=== PATIENT | female | born 1960 | race Two or more races ===

== ENCOUNTER 2017-02-05 08:12 | Inpatient (IN) | payer MEDICAID ==
[2017-02-05] VITALS (17 sets, daily range): BP systolic 65–141; BP diastolic 47–81
[~2017-02-05] VITALS: Ht 165.1 cm; Wt 55.9 kg
--- NOTE | 2017-02-05 08:13 | Emergency Room Report ---
History of Present Illness General Chief Complaint: Altered Level of Consciousness Source: EMS Present Illness HPI Patient is a 70-year-old female brought in by EMS after increased level of consciousness. Patient noted be in increased confusion. She had been making incomprehensible sounds. History is markedly limited by patient's mental status. The patient was reportedly found in her apartment. She has a known past medical history Allergies: Coded Allergies: UNABLE TO ASSESS (Unverified , 02/05/17) Patient History Reviewed Nursing Documentation: PMH: Agreed, PSxH: Agreed Nursing Documentation-PMH Past Medical History Deferred: Pt Cognitively Impaired Review of Systems All Other Systems: limited - by mental status Physical Exam Vital Signs Date Time Temp Pulse Resp B/P (MAP) Pulse Ox O2 Delivery O2 Flow Rate FiO2 02/05/17 08:04 68 20 104/73 99 Room Air General Appearance: severe distress, Stupor Eyes: bilateral eye other - small pupils ENT: uvula midline, other - gag present Neck: limited range of motion Respiratory: chest non-tender, lungs clear Cardiovascular #1: normal peripheral pulses, no edema Gastrointestinal: tenderness - right lower abdomen/grimacing, other - tenderness lower right abdomen Musculoskeletal: decreased range of motion Neurologic: motor weakness, other - poor alertness, moves all extremities, incomprehensible sounds Psychiatric: anxious Skin: normal color, no rash Procedures Critical Care Time Critical Care Time Patient had a critical medical condition which untreated could potentially result in life or limb threatening injury. Total critical care time excluding procedures approximately 45 minutes. Medical Decision Making Diagnostic Impression: Primary Impression: Altered mental status Additional Impressions: Mass of right ovary Hydronephrosis Acute kidney injury Dehydration Uremia ER Course Patient is a 70-year-old female who presented for altered mental status. Differential diagnosis included but was not limited to ischemic stroke, subarachnoid hemorrhage, hypoglycemia, spinal cord injury, neurodegenerative disorder, urinary tract infection, hypoxemia.Because of complexity of patient's case laboratory testing and imaging studies were ordered.Laboratory studies showed evidence of elevation of her BUN as well as creatinine. The patient was initially noted to be markedly hypotensive the patient started on IV fluids well as IV antibiotics. Dr. Shamar Vega was contacted for inpatient management due to to panel physician. A CT abdomen pelvis read by radiology showed moderate right hydronephrosis/either ureter is a complex cystic mass with multiple septations likely ovarian nature approximately 6 x [address] York was contacted for a urology consult. A right internal jugular central venous catheter was attempted under ultrasound guidance without success. The patient was noted to have improved blood pressure subsequently. The post procedure x-ray showed no evidence of pneumothorax. Labs Test 02/05/17 09:20 02/05/17 09:30 02/05/17 10:51 02/05/17 11:50 Arterial Blood pH 7.370 (7.350-7.450) Arterial Blood Partial Pressure CO2 26.6 mmHg (35.0-45.0) Arterial Blood Partial Pressure O2 167.5 mmHg (75.0-100.0) Arterial Blood HCO3 15.1 mmol/L (22.0-26.0) Arterial Blood Oxygen Saturation 98.4 % (92.0-98.0) Arterial Blood Base Excess -8.1 Rodolfo Test Positive White Blood Count 15.1 K/UL (4.8-10.8) Red Blood Count 5.39 M/UL (4.20-5.40) Hemoglobin 17.7 G/DL (12.0-16.0) Hematocrit 53.2 % (37.0-47.0) Mean Corpuscular Volume 99 FL (80-99) Mean Corpuscular Hemoglobin 32.8 PG (27.0-31.0) Mean Corpuscular Hemoglobin Concent 33.3 G/DL (32.0-36.0) Red Cell Distribution Width 11.5 % (11.6-14.8) Platelet Count 119 K/UL (150-450) Mean Platelet Volume 13.3 FL (6.5-10.1) Neutrophils (%) (Auto) % (45.0-75.0) Lymphocytes (%) (Auto) % (20.0-45.0) Monocytes (%) (Auto) % (1.0-10.0) Eosinophils (%) (Auto) % (0.0-3.0) Basophils (%) (Auto) % (0.0-2.0) Differential Total Cells Counted 100 Neutrophils % (Manual) 93 % (45-75) Lymphocytes % (Manual) 6 % (20-45) Monocytes % (Manual) 1 % (1-10) Eosinophils % (Manual) 0 % (0-3) Basophils % (Manual) 0 % (0-2) Band Neutrophils 0 % (0-8) Platelet Estimate Decreased Platelet Morphology Normal Red Blood Cell Morphology Normal Prothrombin Time 13.5 SEC (9.30-11.50) Prothromb Time International Ratio 1.3 (0.9-1.1) Activated Partial Thromboplast Time 34 SEC (23-33) Sodium Level 154 MMOL/L (136-145) Potassium Level 3.3 MMOL/L (3.5-5.1) Chloride Level 111 MMOL/L (98-107) Carbon Dioxide Level 21 MMOL/L (21-32) Anion Gap 22 mmol/L (5-15) Blood Urea Nitrogen 115 mg/dL (7-18) Creatinine 5.9 MG/DL (0.55-1.30) Estimat Glomerular Filtration Rate 7.0 mL/min (>60) Glucose Level 252 MG/DL (74-106) Calcium Level 7.9 MG/DL (8.5-10.1) Total Bilirubin 0.7 MG/DL (0.2-1.0) Aspartate Amino Transf (AST/SGOT) 141 U/L (15-37) Alanine Aminotransferase (ALT/SGPT) 46 U/L (12-78) Alkaline Phosphatase 66 U/L (46-116) Ammonia 6 umol/L (11-32) Total Creatine Kinase 1698 U/L (26-308) Creatine Kinase MB 98.9 NG/ML (0.0-3.6) Creatine Kinase MB Relative Index 1400.0 Troponin I 0.019 ng/mL (0.000-0.056) Pro-B-Type Natriuretic Peptide 434 pg/mL (0-125) Total Protein 6.4 G/DL (6.4-8.2) Albumin 2.5 G/DL (3.4-5.0) Globulin 3.9 g/dL Albumin/Globulin Ratio 0.6 (1.0-2.7) Thyroid Stimulating Hormone (TSH) 5.252 uiU/mL (0.358-3.740) Serum Alcohol < 3 mg/dL Urine Color Brown Urine Appearance Clear Urine pH 6 (4.5-8.0) Urine Specific [place] 1.020 (1.005-1.035) Urine Protein 2+ (NEGATIVE) Urine Glucose (UA) Negative (NEGATIVE) Urine Ketones Negative (NEGATIVE) Urine Occult Blood 1+ (NEGATIVE) Urine Nitrite Negative (NEGATIVE) Urine Bilirubin 1+ (NEGATIVE) Urine Ictotest Negative Urine Urobilinogen 1 MG/DL (0.0-1.0) Urine Leukocyte Esterase 1+ (NEGATIVE) Urine RBC 2-4 /HPF (0 - 2) Urine WBC 2-4 /HPF (0 - 2) Urine Squamous Epithelial Cells Few /LPF (NONE/OCC) Urine Bacteria Few /HPF (NONE) Urine Mucus Moderate /LPF (NONE/OCC) Urine Opiates Screen Negative (NEGATIVE) Urine Barbiturates Screen Negative (NEGATIVE) Phencyclidine (PCP) Screen Negative (NEGATIVE) Urine Amphetamines Screen Negative (NEGATIVE) Urine Benzodiazepines Screen Negative (NEGATIVE) Urine Cocaine Screen Negative (NEGATIVE) Urine Marijuana (THC) Screen Negative (NEGATIVE) Lactic Acid Level 4.40 mmol/L (0.66-2.22) EKG Diagnostic Results Rate: normal Rhythm: NSR ST Segments: other - nsr diffuse twave inversion Last Vital Signs Date Time Temp Pulse Resp B/P (MAP) Pulse Ox O2 Delivery O2 Flow Rate FiO2 02/05/17 08:04 68 20 104/73 99 Room Air Status: unchanged Disposition: ADMITTED INPATIENT Condition: Serious Karlos Alston Feb 05, 2017 08:13
[2017-02-05] MEDS ORDERED: Cefepime HCl 1 GM in NS 55 ML IV SCH (08:15)
[2017-02-05] MEDS ORDERED: Lidocaine 1% MPF 10mg/ml 5ml ONE (08:45)
[2017-02-05] MEDS ORDERED: Lidocaine 1% MPF 10mg/ml 5ml IM ONE (09:15)
--- NOTE | 2017-02-05 09:56 | Diagnostic Imaging Report ---
Indication: Altered mental status Technique: Contiguous 5 mm thick transaxial imaging of the head obtained in a Siemens Sensation [address] scanner. Soft tissue and bone windows generated. Automatic Exposure Control was utilized. Total Dose length Product (DLP): 1333.[address] Dose Index Volume (CTDIvol): 70.38 mGy Comparison: none Findings: There is mild prominence of the ventricles, basal cisterns, and cerebral sulci consistent with atrophy. Mild, nonspecific, white matter hypoattenuation is noted throughout the brain consistent with chronic small vessel disease. There is no midline shift, edema, acute hemorrhage, mass effect, or abnormal extra-axial fluid collections. Bones and extra osseous soft tissues are unremarkable. There is opacification of the left ethmoid sinus. There is irregularity of the medial wall of left orbit likely due to an old injury. Impression: No acute intracranial bleed, mass effect or edema. Mild atrophy of the brain. Nonspecific white matter hypoattenuation probably due to chronic small vessel disease. Old left medial orbital wall fracture. The CT scanner at [facility] is accredited by the [employer] and the scans are performed using dose optimization techniques as appropriate to a performed exam including Automatic Exposure control.
[2017-02-05 09:57] LABS: HEMATOCRIT 53.2 % (37.0-47.0); HEMOGLOBIN 17.7 G/DL (12.0-16.0); MEAN CORPUSCULAR VOLUME 99 FL (80-99); PLATELET COUNT 119 K/UL (150-450); RED BLOOD COUNT 5.39 M/UL (4.20-5.40); RED CELL DISTRIBUTION WIDTH 11.5 % (11.6-14.8); WHITE BLOOD COUNT 15.1 K/UL (4.8-10.8)
[2017-02-05] MEDS ORDERED: Cefepime 1gm vial ONE (10:04)
[2017-02-05 10:08] LABS: INR 1.3 (0.9-1.1)
[2017-02-05 10:13] LABS: ANION GAP 22 mmol/L (5-15); BLOOD UREA NITROGEN 115 mg/dL (7-18); CALCIUM 7.9 MG/DL (8.5-10.1); CARBON DIOXIDE 21 MMOL/L (21-32); CHLORIDE 111 MMOL/L (98-107); CREATININE 5.9 MG/DL (0.55-1.30); POTASSIUM 3.3 MMOL/L (3.5-5.1); SODIUM 154 MMOL/L (136-145)
[2017-02-05 10:25] LABS: ALANINE AMINOTRANSFERASE 46 U/L (12-78); ALBUMIN 2.5 G/DL (3.4-5.0); ALBUMIN/GLOBULIN RATIO 0.6 (1.0-2.7); ALKALINE PHOSPHATASE 66 U/L (46-116); ASPARTATE AMINO TRANSFERASE 141 U/L (15-37); BILIRUBIN,TOTAL 0.7 MG/DL (0.2-1.0); CKMB 98.9 NG/ML (0.0-3.6)
[2017-02-05 10:26] LABS: CREATINE KINASE 1698 U/L (26-308)
[2017-02-05 10:27] LABS: CREATINE KINASE < 7 U/L (26-140)
[2017-02-05] MEDS ORDERED: Cefepime HCl 1 GM in D5W 55 ML IVPB ONE (10:45)
--- NOTE | 2017-02-05 10:50 | Diagnostic Imaging Report ---
Indication: Dyspnea Comparison: 02/05/2017 at 08:47 A single view chest radiograph was obtained. Findings: Cardiomediastinal appearance is within normal limits for age. Pulmonary vascularity is appropriate. The diaphragmatic contour is smooth and costophrenic angles are sharp. No pleural effusions are identified. The bones are unremarkable. Impression: No acute findings
--- NOTE | 2017-02-05 10:52 | Diagnostic Imaging Report ---
Indication: Dyspnea Comparison: None A single view chest radiograph was obtained. Findings: Cardiomediastinal appearance is within normal limits for age. Pulmonary vascularity is appropriate. The diaphragmatic contour is smooth and costophrenic angles are sharp. No pleural effusions are identified. The bones are unremarkable. Impression: No acute findings
[2017-02-05 11:06] LABS: APPEARANCE,URINE CLEAR; BILIRUBIN, URINE 1+ (NEGATIVE); COLOR,URINE BROWN; GLUCOSE, URINE (UA) NEGATIVE (NEGATIVE); KETONES,URINE NEGATIVE (NEGATIVE); LEUKOCYTE ESTERASE ,URINE 1+ (NEGATIVE); NITRITE,URINE NEGATIVE (NEGATIVE); PH,URINE 6 (4.5-8.0); PROTEIN,URINE 2+ (NEGATIVE); UROBILINOGEN,URINE 1 MG/DL (0.0-1.0)
--- NOTE | 2017-02-05 12:13 | Diagnostic Imaging Report ---
Indication: Abdominal pain Technique: Continuous helical transaxial imaging of the abdomen and pelvis was obtained from the lung bases to the pubic symphysis. No intravenous contrast was administered. Coronal 2-D reformats were also obtained. Automatic Exposure Control was utilized. Total Dose length Product (DLP): 662.[address] Dose Index Volume (CTDIvol): 13.21 mGy Comparison: none Findings: There is slight thickening of the wall the distal esophagus. Consider follow-up endoscopy. Minimal left basilar atelectasis demonstrated. Tiny gallstone demonstrated. There is mild to moderate right hydronephrosis/hydroureter. There is no obstructing stone. The hydronephrosis appears to be secondary to a multicystic mass in the right adnexa. The ureter as it traverses between the right psoas muscle and this mass transitions from [id number] dilatation to normal caliber. The complex cystic mass has multiple septations and is likely ovarian in nature measuring approximately 6.8 x 5.1 x 9.3 cm. There are multiple fibroids within the uterus some calcified. One of the fibroids appears subserosal and projects toward the left adnexa measuring 3.4 cm. There is air within the urinary bladder. Mena catheter noted in good position. Normal appendix is demonstrated. There is no evidence of bowel obstruction. There is no free air, abscess or ascites identified. Mild calcification of the aorta noted. Moderate callus patient noted adjacent to the greater trochanter bilaterally with worse on the right likely calcific tendinopathy/greater trochanter bursitis. IMPRESSION: Moderate right hydronephrosis secondary to extrinsic compression from a complex cystic right ovarian mass measuring 6.8 x 5.1 x 9.3 cm. 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 [employer] follow-up recommended. Cholelithiasis. Mild thickening of the visualized distal esophageal wall. Consider follow-up EGD. Small hiatal hernia also noted. Mild atherosclerotic disease. Mena catheter Uterine fibroids Bilateral greater trochanteric bursitis/tendinopathy, right worse than left. The CT scanner at [facility] is accredited by the [employer] and the scans are performed using dose optimization techniques as appropriate to a performed exam including Automatic Exposure control.
[2017-02-05] MEDS ORDERED: Vancomycin 1gm in D5W 275ml IVPB ONE (15:00)
[2017-02-05] MEDS: NovoLOG Insulin Flexpen SUBQ SCH ×2 (17:06→21:00)
--- NOTE | 2017-02-05 20:08 | Wound Care Consultation ---
Wound Assessment Wound Assessment #1: Wound Number: 1 Wound Present on Admission: Yes New Wound: No Status Change of Wound: No Wound Location Body Site Modif: left, lower Wound Location Body Site: back Wound Type: pressure ulcer Anali Test: Does not Anali Pressure Ulcer Stage: Deep Tissue Injury Wound Thickness: Full Thickness Wound Length: 10.0 Wound Width: 8.5 Wound Depth: utd Percent of Wound Purple/Maroon: 100 Wound Drainage Amount: None Wound Drainage Odor: None/Absent Tissue Surrounding Wound: Erythemic Wound General Appearance: Reddened - purple/maroon Wound Assessment #2: Wound Number: 2 Wound Present on Admission: Yes New Wound: No Status Change of Wound: No Wound Location Body Site Modif: left Wound Location Body Site: heel Wound Type: pressure ulcer Anali Test: Does not Anali Pressure Ulcer Stage: I Wound Length: 2.5 Wound Width: 2.5 Percent of Wound [place]/Red: 100 Wound Drainage Amount: None Wound Drainage Odor: None/Absent Tissue Surrounding Wound: Intact Wound General Appearance: Reddened Wound Assessment #3: Wound Number: 3 Wound Present on Admission: Yes New Wound: No Status Change of Wound: No Wound Location Body Site Modif: right Wound Location Body Site: heel Wound Type: pressure ulcer Anali Test: Does not Anali Pressure Ulcer Stage: I Wound Length: 2.5 Wound Width: 2.5 Percent of Wound [place]/Red: 100 Wound Drainage Amount: None Wound Drainage Odor: None/Absent Tissue Surrounding Wound: Intact Wound General Appearance: Reddened Wound Assessment #4: Wound Number: 4 Wound Present on Admission: Yes New Wound: No Status Change of Wound: No Wound Location Body Site Modif: left, right, upper Wound Location Body Site: back Wound Type: pressure ulcer Anali Test: Does not Anali Pressure Ulcer Stage: Deep Tissue Injury - scattered Wound Thickness: Full Thickness Percent of Wound [place]/Red: 100 - deep red Wound Drainage Amount: None Wound Drainage Odor: None/Absent Tissue Surrounding Wound: Intact Wound General Appearance: Reddened - deep red Wound Assessment #5: Wound Number: 5 Wound Present on Admission: Yes New Wound: No Status Change of Wound: No Wound Location Body Site Modif: right Wound Location Body Site: trochanter Wound Type: pressure ulcer Anali Test: Does not Anali Pressure Ulcer Stage: Deep Tissue Injury Wound Thickness: Full Thickness Wound Length: 4.5 Wound Width: 3.0 Wound Depth: utd Percent of Wound [place]/Red: 100 - deep red Wound Drainage Amount: None Wound Drainage Odor: None/Absent Tissue Surrounding Wound: Erythemic Wound General Appearance: Reddened - deep red Wound Assessment #6: Wound Number: 6 Wound Present on Admission: Yes New Wound: No Status Change of Wound: No Wound Location Body Site: perineal area Wound Type: chemical burn Anali Test: Does not Anali Percent of Wound [place]/Red: 100 Wound Drainage Amount: None Wound Drainage Odor: None/Absent Tissue Surrounding Wound: Erythemic Wound General Appearance: Reddened Wound Assessment #7: Wound Number: 7 Wound Present on Admission: Yes New Wound: No Status Change of Wound: No Wound Location Body Site Modif: left Wound Location Body Site: buttocks Wound Type: pressure ulcer Anali Test: Does not Anali Pressure Ulcer Stage: I Wound Length: 5.0 Wound Width: 2.0 Percent of Wound [place]/Red: 100 Wound Drainage Amount: None Wound Drainage Odor: None/Absent Tissue Surrounding Wound: Erythemic Wound General Appearance: Reddened Wound Comment #1 Left lower back DTI pressure ulcer #2 Left and right upper back scattered DTI pressure ulcer #3 Left heel stage I pressure ulcer #4 Left buttock stage I pressure ulcer #5 Right heel stage I pressure ulcer #6 Chemical burn on perineal area #7 Right trochanter DTI pressure ulcer Recommendation -Local wound care per protocol -Keep clean and dry -Turn and reposition -Optimize nutrition -Offload both heels -Heel protector on both heels -Low air loss mattress -Assess and f/u accordingly for any changes NABEEL MARTINEZ RN Feb 05, 2017 20:08
[2017-02-05] MEDS ORDERED: Piperacillin/Tazobactam 3.375 GM in NS 110 ML IVPB SCH (21:00)
--- NOTE | 2017-02-05 21:30 | History and Physical Report ---
DATE OF ADMISSION: 02/05/2017 HISTORY AND PHYSICAL AND ICU NOTE CHIEF COMPLAINT/REASON FOR HOSPITALIZATION: The patient is a 70-year-old lady, admitted with altered level of consciousness and hypotension. HISTORY OF PRESENT ILLNESS: She was brought in by EMS for altered level of consciousness, apparently found down in her apartment and unable to communicate. I am unable to get any past history at this time and she initially presented without a name being available and assigned a name, Bailee Cortes, but apparently this is her proper name. No other past history is available at this time. She was hypotensive and also hypothermic in the emergency room. She was given fluids, cultured, and started on treatment. She was seen in the emergency room and again later in the ICU. PHYSICAL EXAMINATION: VITAL SIGNS: Temperature 89, repeat 94 rectal; pulse 73; respirations 16; and blood pressure 121/77. HEAD, EYES, EARS, NOSE, AND THROAT: She keeps her eyes closed during the exam and when the eyes are open, the sclerae are nonicteric and the pupils are reactive. Oral mucosa is dry. NECK: No adenopathy, rigidity or thyroid enlargement. LUNGS: Clear. HEART: Regular rhythm. No murmur heard. BREASTS: Atrophic. No masses. ABDOMEN: Soft without organomegaly or masses. EXTREMITIES: No edema, cyanosis or clubbing. NEUROLOGIC: She is nonverbal. She moves all extremities to irritative stimuli. There is no facial asymmetry. Ocular motions appear to be intact in all directions when the eyes are open. PERTINENT LABORATORY AND DIAGNOSTIC DATA: A CT abdomen shows moderate right hydronephrosis secondary to extrinsic compression from a complex right ovarian mass. 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 Further labs as follows, white count 15.1 and hemoglobin 17.7. Sodium 154, potassium 3.3, chloride 111, CO2 21, BUN 115, creatinine 5.9, and glucose 252. AST 141. CK total is less than 7, but her CK-MB is 1400, very elevated. The total CK repeat is 1698. TSH 5.25. Lactic acid 6.2 and 4.4. The urinalysis as follows, 2-4 white cells and 2-4 red cells per high-powered field, 2+ protein. A chest x-ray shows no acute findings. IMPRESSION: 1. Hypothermia and possible sepsis and septic shock. 2. Acute kidney injury, likely secondary to obstruction and dehydration. 3. Hydronephrosis. 4. Cystic pelvic mass. 5. Incomplete database. 6. Hypothermia. 7. Debility. 8. Altered mental status, possibly from sepsis and possible others. PLAN: The patient is in the intensive care unit. She will be hydrated and started on treatment for sepsis. We may need to put a ureteral stents or percutaneous nephrostomy. Condition is critical and detailed ICU orders are given. Shamar Vega M.D. DR: KATHY JOB#: [id number] CC:
[2017-02-06] VITALS (12 sets, daily range): BP systolic 93–154; BP diastolic 45–77
--- NOTE | 2017-02-06 03:00 | Consultation ---
DATE OF CONSULTATION: 02/05/2017 UROLOGY CONSULTATION ATTENDING/CONSULTING PHYSICIAN: Shamar Vega M.D. CHIEF COMPLAINT/HISTORY OF PRESENT ILLNESS: I was asked by Dr. Vega to evaluate this unfortunate 70-year-old female regarding a history of right hydroureteronephrosis, secondary to extrinsic compression by an ovarian mass in the setting of renal failure and altered mental status. Briefly, the patient was brought in, found down by EMS. She had altered level of consciousness and was unable to communicate. Apparently, she was found to be hypotensive and hypothermic. She had a CT scan done revealing a right ovarian cystic mass consistent with possible neoplasm and extrinsic compression of the right ureter secondary to same. There is right-sided hydronephrosis, but the patient also appear to suffer from prerenal azotemia. She was given fluids, cultured, and placed in the ICU. Given the above, I was asked to evaluate the patient. The patient is sleepy and cannot provide any information. Most of the information is gathered from the chart. PAST MEDICAL HISTORY: Unknown. PAST SURGICAL HISTORY: Unknown. MEDICATIONS: Please see the chart for current medications and administration details. Briefly, the patient's medications do include Zosyn and vancomycin for antibiotic coverage. ALLERGIES: Unknown. SOCIAL HISTORY: Unobtainable due to mental status. FAMILY HISTORY: Unobtainable due to mental status. REVIEW OF SYSTEMS: A 12-system review of systems cannot be done, as the patient cannot cooperate with questioning. PHYSICAL EXAMINATION: GENERAL: The patient is an older female, sleeping, in no obvious distress. HEENT: NC/AT. Oropharynx clear. NECK: Supple. CHEST: Within normal limits. ABDOMEN: Soft, flat, nontender, and nondistended. EXTREMITIES: Warm and well perfused. No cyanosis, clubbing, or edema. BACK: No apparent CVA tenderness to percussion. NEUROLOGIC: Deferred, as the patient cannot cooperate with the exam. GENITOURINARY: Reveals normal female external genitalia. There is a Mena catheter in place with clear yellow urine output, which is somewhat scant. LABORATORY DATA: White blood cell count 15.1 and hemoglobin 17.7. Sodium 154, potassium 3.3, chloride 111, bicarbonate 21, BUN 115, creatinine 5.9, and glucose 252. AST 141. CK-MB 1400. CK total 1698. Lactic acid 6.2. PT 13.5, INR 1.3, and PTT 34. Urinalysis, specific gravity 1.020 and pH 6.0. Dip test notable for 2+ protein, 1+ occult blood, 1+ bilirubin, and 1+ leukocyte esterase. Microanalysis with 2 to 4 red blood cells per high-power field and 2 to 4 white blood cells per high-power field and few bacteria seen. Urine toxicology negative. DIAGNOSTIC IMAGING: Chest x-ray, no acute findings. CT scan of the abdomen and pelvis reveals moderate right hydronephrosis, secondary to extrinsic compression from a complex cystic right ovarian mass measuring 6.8 x 5.1 x 9.3 cm in size. 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 WELLNESS NURSE followup was recommended. There is cholelithiasis noted. There are uterine fibroids. Mena catheter is in place. Head CT, no acute intracranial bleed, mass affect, or edema. There is mild atrophy of the brain. ASSESSMENT AND PLAN: In summary, the patient is a 70-year-old female with a history of altered mental status and was found down. She was brought to the hospital. She was found to be hypotensive and hypothermic. She was admitted to the ICU and placed on fluids, antibiotics, and supportive care. Workup with a CT scan revealed a right ovarian mass with extrinsic compression of the right ureter leading to right hydroureteronephrosis. The patient has renal failure, which likely is at least partially prerenal azotemia due to dehydration. Physical exam is essentially unremarkable outside of obtundation. Laboratory data is notable for renal failure and an elevated white blood cell count. Diagnostic imaging reveals the findings as described above. This patient should be kept on supportive care with intravenous fluids for hydration and intravenous antibiotics. Cultures should be checked and antibiotics adjusted as necessary. If her renal failure fails to correct with rehydration, consideration could be made for placing a percutaneous nephrostomy tube in the right kidney to rule out a component of obstructive uropathy secondary to her mass. I would recommend a percutaneous nephrostomy over cystoscopy double-J stent for several reasons, including the risk of general anesthesia and the patient with an elevated CK-MB and critically ill status and also the difficulty in bypassing the ureteral obstruction from the mass from below. Thank you for allowing me to participate in the care of this unfortunate lady. Please do not hesitate to contact me for any questions that you may further have regarding her care. I will see her with you as needed. Edd Szymanski M.D. DR: SEAN JOB#: [id number] CC:
[2017-02-06 04:47] LABS: HEMATOCRIT 45.8 % (37.0-47.0); HEMOGLOBIN 15.9 G/DL (12.0-16.0); MEAN CORPUSCULAR VOLUME 99 FL (80-99); PLATELET COUNT 78 K/UL (150-450); RED BLOOD COUNT 4.63 M/UL (4.20-5.40); RED CELL DISTRIBUTION WIDTH 11.6 % (11.6-14.8)
[2017-02-06 04:50] LABS: INR 1.3 (0.9-1.1)
[2017-02-06 05:04] LABS: ALANINE AMINOTRANSFERASE 46 U/L (12-78); ALBUMIN 2.1 G/DL (3.4-5.0); ALBUMIN/GLOBULIN RATIO 0.6 (1.0-2.7); ALKALINE PHOSPHATASE 58 U/L (46-116); ANION GAP 19 mmol/L (5-15); ASPARTATE AMINO TRANSFERASE 131 U/L (15-37); BILIRUBIN,TOTAL 0.7 MG/DL (0.2-1.0); BLOOD UREA NITROGEN 111 mg/dL (7-18); CALCIUM 6.8 MG/DL (8.5-10.1); CARBON DIOXIDE 21 MMOL/L (21-32); CHLORIDE 116 MMOL/L (98-107); CREATININE 5.7 MG/DL (0.55-1.30); POTASSIUM 2.8 MMOL/L (3.5-5.1); SODIUM 155 MMOL/L (136-145)
[2017-02-06 05:15] LABS: AMMONIA 11 umol/L (11-32)
[2017-02-06 05:24] LABS: CREATINE KINASE 1404 U/L (26-308); PHOSPHORUS 5.3 MG/DL (2.5-4.9)
[2017-02-06] MEDS: NovoLOG Insulin Flexpen SUBQ SCH ×4 (06:36→21:00)
[2017-02-06] MEDS ORDERED: Heparin 5000 units/ml inj SUBQ SCH (09:00)
[2017-02-06] MEDS: Piperacillin/Tazobactam 3.375 GM in NS 110 ML IVPB SCH ×2 (09:25→21:01)
[2017-02-06] MEDS ORDERED: Potassium Chloride 40 MEQ in Sodium Chloride 500ML 550 ML IVPB ONE (10:00)
[2017-02-06] MEDS: Potassium Chloride 40 MEQ in 1/2 NS 1000ml 1,000 ML IV SCH ×2 (10:47→18:20)
[2017-02-06] MEDS: Heparin 5000 units/ml inj SUBQ SCH (12:09)
--- NOTE | 2017-02-06 12:24 | Nephrology Progress Note ---
Assessment/Plan Problem List: (1) Severe sepsis (2) Dehydration (3) Hydronephrosis (4) Uremia (5) Acute kidney injury (6) Mass of right ovary (7) Altered mental status Plan G+ cocci in blood vanco zosyn iv fluids icu order icu time 35 min Subjective ROS Limited/Unobtainable: Yes HEENT: Reports: no symptoms Objective Objective Last 24 Hour Vital Signs Date Time Temp Pulse Resp B/P (MAP) Pulse Ox O2 Delivery O2 Flow Rate FiO2 02/06/17 08:00 95.9 71 18 111/69 99 Room Air 02/06/17 08:00 69 02/06/17 07:00 82 16 102/52 99 Room Air 02/06/17 06:00 80 20 104/77 99 Room Air 02/06/17 05:00 80 20 110/45 99 Room Air 02/06/17 04:00 85 02/06/17 04:00 98.0 86 20 93/61 99 Room Air 02/06/17 03:00 86 16 96/59 99 Room Air 02/06/17 02:00 89 16 97/54 99 Room Air 02/06/17 01:00 94 16 99/59 99 Room Air 02/06/17 00:00 98.4 92 20 100/50 99 Room Air 02/05/17 23:45 100 02/05/17 23:00 98.0 100 20 118/71 99 Room Air 02/05/17 22:00 100 20 118/71 99 Room Air 02/05/17 21:00 100 20 118/71 99 Room Air 02/05/17 20:00 111 02/05/17 20:00 99.5 100 20 118/71 99 Room Air 02/05/17 19:00 100 20 118/71 99 Room Air 02/05/17 18:00 76 16 108/71 100 Room Air 02/05/17 17:00 76 17 119/71 100 Room Air 02/05/17 16:00 94.6 83 17 141/80 100 Room Air 02/05/17 15:00 76 16 117/77 100 Room Air 02/05/17 14:00 71 16 117/78 100 Room Air 02/05/17 13:00 94.0 72 16 121/77 100 Room Air 02/05/17 13:00 73 12/29/17 12:45 73 16 111/81 100 Room Air 02/05/17 12:35 98.5 76 22 108/72 100 Room Air 02/05/17 12:35 89.0 76 22 108/72 100 Room Air Intake and Output 02/05/17 02/06/17 19:00 07:00 Intake Total 1930 ml 1910.0 ml Output Total 1350 ml 850 ml Balance 580 ml 1060.0 ml Intake Oral 0 ml IV Total 1930 ml 1910.0 ml Output Urine Total 1350 ml 850 ml Laboratory Tests 02/05/17 18:10: Lactic Acid Level 2.70H 02/06/17 03:45: White Blood Count 15.0H, Red Blood Count 4.63, Hemoglobin 15.9, Hematocrit 45.8 , Mean Corpuscular Volume 99, Mean Corpuscular Hemoglobin 34.4H, Mean Corpuscular Hemoglobin Concent 34.8, Red Cell Distribution Width 11.6, Platelet Count 78L, Mean Platelet Volume 11.4H, Neutrophils (%) (Auto) , Lymphocytes (%) (Auto) , Monocytes (%) (Auto) , Eosinophils (%) (Auto) , Basophils (%) (Auto) , Differential Total Cells Counted 100, Neutrophils % (Manual) 80H, Lymphocytes % (Manual) 13L, Monocytes % (Manual) 7, Eosinophils % (Manual) 0, Basophils % ( Manual) 0, Band Neutrophils 0, Platelet Estimate DecreasedL, Platelet Morphology Normal, Prothrombin Time 13.6H, Prothromb Time International Ratio 1.3H, Sodium Level 155H, Potassium Level 2.8L, Chloride Level 116H, Carbon Dioxide Level 21, Anion Gap 19H, Blood Urea Nitrogen 111H, Creatinine 5.7H, Estimat Glomerular Filtration Rate 7.3, Glucose Level 130#H, Calcium Level 6.8L , Phosphorus Level 5.3H, Magnesium Level 2.3, Total Bilirubin 0.7, Aspartate Amino Transf (AST/SGOT) 131H, Alanine Aminotransferase (ALT/SGPT) 46, Alkaline Phosphatase 58, Ammonia 11, Total Creatine Kinase 1404H, Troponin I 0.253H, Total Protein 5.4L, Albumin 2.1L, Globulin 3.3, Albumin/Globulin Ratio 0.6L, Random Vancomycin Level 21.0 Height (Feet): 5 Height (Inches): 2.00 Weight (Pounds): 116 General Appearance: confused EENT: normal ENT inspection Neck: normal alignment Cardiovascular: regular rhythm Respiratory/Chest: lungs clear Abdomen: non tender, soft, no organomegaly Neurologic: disoriented BENOIT GIORDANO Feb 06, 2017 12:24
[2017-02-07] VITALS: BP 100/52
[2017-02-07] MEDS: Potassium Chloride 40 MEQ in 1/2 NS 1000ml 1,000 ML IV SCH ×2 (00:04→05:51)
[2017-02-07 04:00] VITALS: BP 119/74
[2017-02-07 04:50] LABS: HEMATOCRIT 42.2 % (37.0-47.0); HEMOGLOBIN 14.8 G/DL (12.0-16.0); MEAN CORPUSCULAR VOLUME 98 FL (80-99); PLATELET COUNT 53 K/UL (150-450); RED BLOOD COUNT 4.29 M/UL (4.20-5.40); WHITE BLOOD COUNT 14.7 K/UL (4.8-10.8)
[2017-02-07] MEDS: NovoLOG Insulin Flexpen SUBQ SCH ×4 (05:53→20:32)
[2017-02-07 06:59] LABS: ALANINE AMINOTRANSFERASE 42 U/L (12-78); ALBUMIN 1.8 G/DL (3.4-5.0); ALBUMIN/GLOBULIN RATIO 0.5 (1.0-2.7); ALKALINE PHOSPHATASE 60 U/L (46-116); ANION GAP 16 mmol/L (5-15); ASPARTATE AMINO TRANSFERASE 94 U/L (15-37); BILIRUBIN,TOTAL 0.5 MG/DL (0.2-1.0); BLOOD UREA NITROGEN 95 mg/dL (7-18); CALCIUM 6.7 MG/DL (8.5-10.1); CARBON DIOXIDE 19 MMOL/L (21-32); CHLORIDE 119 MMOL/L (98-107); CREATINE KINASE 737 U/L (26-308); CREATININE 4.2 MG/DL (0.55-1.30); PHOSPHORUS 4.1 MG/DL (2.5-4.9); POTASSIUM 3.9 MMOL/L (3.5-5.1); SODIUM 154 MMOL/L (136-145)
[2017-02-07 08:00] VITALS: BP 96/63
[2017-02-07] MEDS: Piperacillin/Tazobactam 3.375 GM in NS 110 ML IVPB SCH (08:22)
[2017-02-07] MEDS ORDERED: Vancomycin 750mg/D5W 275ml IVPB ONE ×2 (10:00)
--- NOTE | 2017-02-07 10:36 | General Progress Note ---
Assessment/Plan Problem List: (1) Severe sepsis ICD Codes: A41.9 - Sepsis, unspecified organism; R65.20 - Severe sepsis without septic shock SNOMED: 92701441 (2) Dehydration ICD Codes: E86.0 - Dehydration SNOMED: 31576512 (3) Hydronephrosis ICD Codes: N13.30 - Unspecified hydronephrosis SNOMED: 54307532 (4) Uremia ICD Codes: N19 - Unspecified kidney failure SNOMED: 92121637 (5) Acute kidney injury ICD Codes: N17.9 - Acute kidney failure, unspecified SNOMED: 33150963 (6) Mass of right ovary ICD Codes: N83.9 - Noninflammatory disorder of ovary, fallopian tube and broad ligament, unspecified SNOMED: 153570697 (7) Altered mental status ICD Codes: R41.82 - Altered mental status, unspecified SNOMED: 274382092 (8) Hypernatremia ICD Codes: E87.0 - Hyperosmolality and hypernatremia SNOMED: 34676412 Assessment/Plan remains obtunde, ct brain, hydrate,rx sepsis, possible nephrostomy in 2 days Subjective ROS Limited/Unobtainable: Yes Allergies: Coded Allergies: UNABLE TO ASSESS (Unverified , 02/05/17) Objective Last 24 Hour Vital Signs Date Time Temp Pulse Resp B/P (MAP) Pulse Ox O2 Delivery O2 Flow Rate FiO2 02/07/17 08:00 97.9 88 18 96/63 94 Room Air 02/07/17 08:00 87 02/07/17 04:00 97.9 91 15 119/74 99 Room Air 02/07/17 04:00 89 02/07/17 00:00 77 02/07/17 00:00 97.5 77 15 100/52 95 Room Air 02/06/17 20:00 96.8 77 15 100/63 95 Room Air 02/06/17 20:00 70 02/06/17 16:05 96.4 74 20 122/62 95 Room Air 02/06/17 16:00 74 02/06/17 12:00 70 02/06/17 12:00 96.1 70 18 154/71 98 Room Air Intake and Output 02/06/17 02/07/17 19:00 07:00 Intake Total 1801.0 ml 1855.0 ml Output Total 620 ml Balance 1181.0 ml 1855.0 ml IV Total 1801.0 ml 1855.0 ml Output Urine Total 620 ml Laboratory Tests 02/06/17 15:15: Urine Osmolality 303L, Urine Random Sodium 25, Urine Creatinine 80.9 02/07/17 03:20: White Blood Count 14.7H, Red Blood Count 4.29, Hemoglobin 14.8, Hematocrit 42.2 , Mean Corpuscular Volume 98, Mean Corpuscular Hemoglobin 34.4H, Mean Corpuscular Hemoglobin Concent 35.0, Red Cell Distribution Width 12.0, Platelet Count 53L, Mean Platelet Volume 13.4H, Neutrophils (%) (Auto) , Lymphocytes (%) (Auto) , Monocytes (%) (Auto) , Eosinophils (%) (Auto) , Basophils (%) (Auto) , Differential Total Cells Counted 100, Neutrophils % (Manual) 85H, Lymphocytes % (Manual) 10L, Monocytes % (Manual) 4, Eosinophils % (Manual) 1, Basophils % ( Manual) 0, Band Neutrophils 0, Platelet Estimate DecreasedL, Platelet Morphology Normal, Red Blood Cell Morphology Normal, Sodium Level 154H, Potassium Level 3.9, Chloride Level 119H, Carbon Dioxide Level 19L, Anion Gap 16H, Blood Urea Nitrogen 95H, Creatinine 4.2H, Estimat Glomerular Filtration Rate 10.5, Glucose Level 123H, Calcium Level 6.7L, Phosphorus Level 4.1, Magnesium Level 2.0, Total Bilirubin 0.5, Aspartate Amino Transf (AST/SGOT) 94H , Alanine Aminotransferase (ALT/SGPT) 42, Alkaline Phosphatase 60, Total Creatine Kinase 737H, Total Protein 5.3L, Albumin 1.8L, Globulin 3.5, Albumin/ Globulin Ratio 0.5L Height (Feet): 5 Height (Inches): 2.00 Weight (Pounds): 115 General Appearance: lethargic, confused EENT: other - face flushed Neck: normal alignment Cardiovascular: normal rate, regular rhythm Respiratory/Chest: lungs clear Abdomen: non tender, soft Extremities: non-tender Edema: no edema noted Arm (L), no edema noted Arm (R), no edema noted Leg (L), no edema noted Leg (R), no edema noted Pedal (L), no edema noted Pedal (R), no edema noted Generalized Neurologic: disoriented BENOIT GIORDANO Feb 07, 2017 10:36
[2017-02-07 12:00] VITALS: BP 111/59
--- NOTE | 2017-02-07 13:23 | Diagnostic Imaging Report ---
Indication: NG tube placement Technique: XRAY Abdomen 1v Comparison: 02/07/2017, 10:59 Findings: Interval placement of nasogastric tube, tip and side port in the proximal stomach. Bowel gas pattern is nonspecific. Imaged lung bases are clear. No acute osseous abnormality seen. Impression: NG tube tip in the proximal stomach.
[2017-02-07] MEDS: Heparin 5000 units/ml inj SUBQ SCH (13:27)
[2017-02-07] MEDS: D5W IV SCH (13:51)
[2017-02-07] MEDS: SODIUM BICARBONATE IV SCH (13:51)
[2017-02-07] MEDS: POTASSIUM CHLORIDE IV SCH (13:51)
--- NOTE | 2017-02-07 14:01 | Diagnostic Imaging Report ---
Indication: Tube placement Technique: XRAY Abdomen 1v Comparison: None Findings: Nonspecific bowel gas pattern with gaseous distention of a loop of sigmoid in the right lower quadrant and some small bowel loops in the left upper quadrant. The bowel gas pattern is not overtly obstructive at this time. Limit sensitivity for free intraperitoneal air given lack of erect view. No enteric tube is seen. Mena catheter noted. Calcifications noted within pelvis may be related to uterine calcifications seen on concurrent CT of the abdomen. No acute osseous abnormality is noted. No definite focal consolidation seen in the lung bases. Impression: No enteric tube seen. Correlate clinically to ensure it is not coiled within the mouth if indeed attempt at placing enteric tube was made. Bowel gas pattern is not overtly obstructive at this time. Additional findings as above.
[2017-02-07 16:00] VITALS: BP 101/62
[2017-02-07 20:00] VITALS: BP 107/66
[2017-02-07] MEDS: ceFAZolin 1gm/50ml Premix 50 ML IV SCH (20:31)
[2017-02-08] VITALS: BP 98/60
[2017-02-08] MEDS: D5W IV SCH (00:17)
[2017-02-08] MEDS: SODIUM BICARBONATE IV SCH (00:17)
[2017-02-08] MEDS: POTASSIUM CHLORIDE IV SCH (00:17)
[2017-02-08 04:00] VITALS: BP 121/85
[2017-02-08] MEDS: NovoLOG Insulin Flexpen SUBQ SCH ×4 (05:46→21:02)
[2017-02-08 06:08] LABS: ANION GAP 9 mmol/L (5-15); BLOOD UREA NITROGEN 58 mg/dL (7-18); CALCIUM 7.1 MG/DL (8.5-10.1); CARBON DIOXIDE 23 MMOL/L (21-32); CHLORIDE 124 MMOL/L (98-107); CREATININE 2.2 MG/DL (0.55-1.30); POTASSIUM 4.1 MMOL/L (3.5-5.1); SODIUM 156 MMOL/L (136-145)
[2017-02-08 06:16] LABS: HEMATOCRIT 42.7 % (37.0-47.0); MEAN CORPUSCULAR VOLUME 101 FL (80-99); PLATELET COUNT 36 K/UL (150-450); RED BLOOD COUNT 4.24 M/UL (4.20-5.40); RED CELL DISTRIBUTION WIDTH 12.3 % (11.6-14.8); WHITE BLOOD COUNT 12.4 K/UL (4.8-10.8)
[2017-02-08 08:00] VITALS: BP 106/65
[2017-02-08] MEDS: ceFAZolin 1gm/50ml Premix 50 ML IV SCH (08:24)
[2017-02-08] MEDS: Heparin 5000 units/ml inj SUBQ SCH (09:00)
--- NOTE | 2017-02-08 10:54 | General Progress Note ---
Assessment/Plan Problem List: (1) Severe sepsis ICD Codes: A41.9 - Sepsis, unspecified organism; R65.20 - Severe sepsis without septic shock SNOMED: 83658729 (2) Dehydration ICD Codes: E86.0 - Dehydration SNOMED: 24289206 (3) Hydronephrosis ICD Codes: N13.30 - Unspecified hydronephrosis SNOMED: 57926527 (4) Uremia ICD Codes: N19 - Unspecified kidney failure SNOMED: 76784376 (5) Acute kidney injury ICD Codes: N17.9 - Acute kidney failure, unspecified SNOMED: 26193190 (6) Mass of right ovary ICD Codes: N83.9 - Noninflammatory disorder of ovary, fallopian tube and broad ligament, unspecified SNOMED: 676715119 (7) Altered mental status ICD Codes: R41.82 - Altered mental status, unspecified SNOMED: 998375422 (8) Hypernatremia ICD Codes: E87.0 - Hyperosmolality and hypernatremia SNOMED: 18750613 Assessment/Plan remains obtunde, ct brain no acute cva, hydrate,rx sepsis, possible nephrostomy in 2 days, levemir, ng feed, ampicillen for enterococcal sepsis Subjective ROS Limited/Unobtainable: Yes Allergies: Coded Allergies: UNABLE TO ASSESS (Unverified , 02/05/17) Objective Last 24 Hour Vital Signs Date Time Temp Pulse Resp B/P (MAP) Pulse Ox O2 Delivery O2 Flow Rate FiO2 02/08/17 04:00 62 02/08/17 04:00 95.1 69 18 121/85 91 Room Air 02/08/17 00:00 95.7 72 20 98/60 97 Room Air 02/08/17 00:00 70 02/07/17 20:00 75 02/07/17 20:00 97.7 81 21 107/66 93 Room Air 02/07/17 16:00 98.0 87 18 101/62 95 Room Air 02/07/17 16:00 84 02/07/17 12:00 98.6 90 18 111/59 95 Room Air 02/07/17 12:00 84 Intake and Output 02/07/17 02/08/17 19:00 07:00 Intake Total 1710 ml 1490 ml Output Total 1200 ml 1800 ml Balance 510 ml -310 ml IV Total 1650 ml 1160 ml Tube Feeding 60 ml 330 ml Output Urine Total 1200 ml 1800 ml Laboratory Tests 02/08/17 03:50: White Blood Count 12.4H, Red Blood Count 4.24, Hemoglobin 14.0, Hematocrit 42.7 , Mean Corpuscular Volume 101H, Mean Corpuscular Hemoglobin 33.0H, Mean Corpuscular Hemoglobin Concent 32.8, Red Cell Distribution Width 12.3, Platelet Count 36L, Mean Platelet Volume 10.0, Neutrophils (%) (Auto) , Lymphocytes (%) ( Auto) , Monocytes (%) (Auto) , Eosinophils (%) (Auto) , Basophils (%) (Auto) , Differential Total Cells Counted 100, Neutrophils % (Manual) 86H, Lymphocytes % (Manual) 10L, Monocytes % (Manual) 3, Eosinophils % (Manual) 1, Basophils % ( Manual) 0, Band Neutrophils 0, Platelet Estimate DecreasedL, Platelet Morphology Normal, Anisocytosis 1+, Macrocytosis 1+, Sodium Level 156H, Potassium Level 4.1, Chloride Level 124H, Carbon Dioxide Level 23, Anion Gap 9, Blood Urea Nitrogen 58H, Creatinine 2.2H, Estimat Glomerular Filtration Rate , Glucose Level 293#H, Calcium Level 7.1L Height (Feet): 5 Height (Inches): 2.00 Weight (Pounds): 120 General Appearance: confused EENT: other - eyes closed Neck: normal alignment Cardiovascular: regular rhythm Respiratory/Chest: lungs clear Abdomen: other - suprapubic full Edema: no edema noted Arm (L), no edema noted Arm (R), no edema noted Leg (L), no edema noted Leg (R), no edema noted Pedal (L), no edema noted Pedal (R), no edema noted Generalized BENOIT GIORDANO Feb 08, 2017 10:54
[2017-02-08 12:00] VITALS: BP 108/73
[2017-02-08] MEDS: 1/2NS w/KCl 20mEq 1000ml 1,000 ML IV SCH ×2 (12:56→22:18)
[2017-02-08] MEDS: Ampicillin 1 GM in NS 55 ML IVPB SCH ×2 (12:57→18:27)
[2017-02-08] MEDS ORDERED: Tubing IV Secondary IV ONE (14:40)
[2017-02-08] MEDS ORDERED: NS 275ml ONE (14:40)
[2017-02-08 16:00] VITALS: BP 119/78
[2017-02-08] MEDS ORDERED: 1/2 NS 1000ml IV ONE (17:42)
[2017-02-08 20:52] VITALS: BP 116/75
[2017-02-08] MEDS ORDERED: ceFAZolin 1gm in D5W 55ml IVPB SCH (21:00)
[2017-02-08] MEDS: Levemir Flexpen SUBQ SCH (21:01)
[2017-02-09 00:34] VITALS: BP 107/72
[2017-02-09] MEDS: Ampicillin 1 GM in NS 55 ML IVPB SCH ×5 (01:05→23:38)
[2017-02-09 04:00] VITALS: BP 103/68
[2017-02-09 04:58] LABS: HEMATOCRIT 42.4 % (37.0-47.0); HEMOGLOBIN 14.3 G/DL (12.0-16.0); MEAN CORPUSCULAR VOLUME 99 FL (80-99); PLATELET COUNT 40 K/UL (150-450); RED BLOOD COUNT 4.28 M/UL (4.20-5.40)
[2017-02-09 05:14] LABS: INR 1.2 (0.9-1.1)
[2017-02-09 05:40] LABS: ALANINE AMINOTRANSFERASE 31 U/L (12-78); ALBUMIN 1.7 G/DL (3.4-5.0); ALBUMIN/GLOBULIN RATIO 0.4 (1.0-2.7); ALKALINE PHOSPHATASE 81 U/L (46-116); ANION GAP 6 mmol/L (5-15); ASPARTATE AMINO TRANSFERASE 40 U/L (15-37); BILIRUBIN,TOTAL 0.5 MG/DL (0.2-1.0); BLOOD UREA NITROGEN 37 mg/dL (7-18); CALCIUM 8.2 MG/DL (8.5-10.1); CARBON DIOXIDE 30 MMOL/L (21-32); CHLORIDE 124 MMOL/L (98-107); CREATININE 1.2 MG/DL (0.55-1.30); POTASSIUM 3.3 MMOL/L (3.5-5.1); SODIUM 160 MMOL/L (136-145)
[2017-02-09] MEDS: NovoLOG Insulin Flexpen SUBQ SCH ×4 (06:40→20:51)
[2017-02-09 08:00] VITALS: BP 136/75
[2017-02-09] MEDS: 1/2NS w/KCl 20mEq 1000ml 1,000 ML IV SCH ×3 (08:08→17:33)
--- NOTE | 2017-02-09 09:33 | General Progress Note ---
Assessment/Plan Problem List: (1) Severe sepsis ICD Codes: A41.9 - Sepsis, unspecified organism; R65.20 - Severe sepsis without septic shock SNOMED: 21009574 (2) Dehydration ICD Codes: E86.0 - Dehydration SNOMED: 73540263 (3) Hydronephrosis ICD Codes: N13.30 - Unspecified hydronephrosis SNOMED: 36449912 (4) Uremia ICD Codes: N19 - Unspecified kidney failure SNOMED: 84578247 (5) Acute kidney injury ICD Codes: N17.9 - Acute kidney failure, unspecified SNOMED: 51563088 (6) Mass of right ovary ICD Codes: N83.9 - Noninflammatory disorder of ovary, fallopian tube and broad ligament, unspecified SNOMED: 610088031 (7) Altered mental status ICD Codes: R41.82 - Altered mental status, unspecified SNOMED: 001187121 (8) Hypernatremia ICD Codes: E87.0 - Hyperosmolality and hypernatremia SNOMED: 00245601 Assessment/Plan remains confused, ct brain no acute cva, hydrate,rx sepsis, possible nephrostomy in 2 days, levemir, ng feed, ampicillen for enterococcal sepsis Subjective Allergies: Coded Allergies: UNABLE TO ASSESS (Unverified , 02/05/17) Subjective confused pulled out ng Objective Last 24 Hour Vital Signs Date Time Temp Pulse Resp B/P (MAP) Pulse Ox O2 Delivery O2 Flow Rate FiO2 02/09/17 08:00 60 02/09/17 08:00 90.7 61 14 136/75 98 02/09/17 04:00 65 02/09/17 04:00 98.9 63 13 103/68 97 02/09/17 00:34 98.8 61 14 107/72 97 02/09/17 00:00 67 02/08/17 20:52 97.1 61 15 116/75 99 02/08/17 16:43 62 02/08/17 16:00 97.0 61 18 119/78 96 02/08/17 12:00 56 02/08/17 12:00 97.1 61 18 108/73 95 Intake and Output 02/08/17 02/09/17 19:00 07:00 Intake Total 1450 ml 100 ml Output Total 1800 ml 1700 ml Balance -350 ml -1600 ml IV Total 1020 ml 100 ml Tube Feeding 430 ml Output Urine Total 1800 ml 1700 ml # Voids 2 # Bowel Movements 1 Laboratory Tests 02/09/17 03:35: White Blood Count 9.0, Red Blood Count 4.28, Hemoglobin 14.3, Hematocrit 42.4, Mean Corpuscular Volume 99, Mean Corpuscular Hemoglobin 33.5H, Mean Corpuscular Hemoglobin Concent 33.7, Red Cell Distribution Width 12.0, Platelet Count 40L, Mean Platelet Volume 11.4H, Neutrophils (%) (Auto) , Lymphocytes (%) (Auto) , Monocytes (%) (Auto) , Eosinophils (%) (Auto) , Basophils (%) (Auto) , Differential Total Cells Counted 100, Neutrophils % (Manual) 81H, Lymphocytes % (Manual) 15L, Monocytes % (Manual) 3, Eosinophils % (Manual) 1, Basophils % ( Manual) 0, Band Neutrophils 0, Platelet Estimate DecreasedL, Platelet Morphology Normal, Red Blood Cell Morphology Normal, Prothrombin Time 12.2H, Prothromb Time International Ratio 1.2H, Activated Partial Thromboplast Time 40H , Sodium Level 160H, Potassium Level 3.3L, Chloride Level 124H, Carbon Dioxide Level 30, Anion Gap 6, Blood Urea Nitrogen 37H, Creatinine 1.2, Estimat Glomerular Filtration Rate , Glucose Level 184#H, Calcium Level 8.2L, Total Bilirubin 0.5, Aspartate Amino Transf (AST/SGOT) 40H, Alanine Aminotransferase ( ALT/SGPT) 31, Alkaline Phosphatase 81, Total Protein 5.5L, Albumin 1.7L, Globulin 3.8, Albumin/Globulin Ratio 0.4L Height (Feet): 5 Height (Inches): 2.00 Weight (Pounds): 117 General Appearance: no apparent distress, confused EENT: normal ENT inspection Neck: normal alignment Cardiovascular: normal rate, regular rhythm Respiratory/Chest: lungs clear Abdomen: non tender, soft Edema: no edema noted Arm (L), no edema noted Arm (R), no edema noted Leg (L), no edema noted Leg (R), no edema noted Pedal (L), no edema noted Pedal (R), no edema noted Generalized Neurologic: disoriented BENOIT GIORDANO Feb 09, 2017 09:33
--- NOTE | 2017-02-09 11:41 | Diagnostic Imaging Report ---
Indication: NG tube placement Technique: XRAY Abdomen 1v Comparison: 02/07/2017 Findings: NG tube tip in the proximal stomach. Bowel gas pattern is nonobstructive. Calcification is noted in the pelvis, possibly calcified fibroids. Imaged lower lungs are grossly clear. No acute osseous abnormality seen. Impression: NG tube tip in the proximal stomach.
[2017-02-09 12:00] VITALS: BP 144/78
[2017-02-09 16:00] VITALS: BP 140/85
[2017-02-09 20:00] VITALS: BP 144/85
[2017-02-09] MEDS: Levemir Flexpen SUBQ SCH (20:50)
[2017-02-10] VITALS: BP 116/61
[2017-02-10] MEDS: 1/2NS w/KCl 20mEq 1000ml 1,000 ML IV SCH ×4 (02:36→21:35)
[2017-02-10 04:00] VITALS: BP 106/68
[2017-02-10] MEDS: Ampicillin 1 GM in NS 55 ML IVPB SCH ×3 (05:35→18:36)
[2017-02-10 05:46] LABS: HEMATOCRIT 40.3 % (37.0-47.0); HEMOGLOBIN 13.4 G/DL (12.0-16.0); MEAN CORPUSCULAR VOLUME 99 FL (80-99); PLATELET COUNT 28 K/UL (150-450); RED BLOOD COUNT 4.06 M/UL (4.20-5.40); WHITE BLOOD COUNT 6.7 K/UL (4.8-10.8)
[2017-02-10 06:30] LABS: ANION GAP 6 mmol/L (5-15); BLOOD UREA NITROGEN 30 mg/dL (7-18); CALCIUM 7.6 MG/DL (8.5-10.1); CARBON DIOXIDE 29 MMOL/L (21-32); CHLORIDE 124 MMOL/L (98-107); POTASSIUM 4.3 MMOL/L (3.5-5.1); SODIUM 159 MMOL/L (136-145)
[2017-02-10] MEDS: NovoLOG Insulin Flexpen SUBQ SCH ×4 (06:30→21:00)
[2017-02-10 08:00] VITALS: BP 109/66
--- NOTE | 2017-02-10 08:20 | General Progress Note ---
Assessment/Plan Problem List: (1) Severe sepsis ICD Codes: A41.9 - Sepsis, unspecified organism; R65.20 - Severe sepsis without septic shock SNOMED: 25892593 (2) Dehydration ICD Codes: E86.0 - Dehydration SNOMED: 47554955 (3) Hydronephrosis ICD Codes: N13.30 - Unspecified hydronephrosis SNOMED: 00054324 (4) Uremia ICD Codes: N19 - Unspecified kidney failure SNOMED: 41460087 (5) Acute kidney injury ICD Codes: N17.9 - Acute kidney failure, unspecified SNOMED: 66539796 (6) Mass of right ovary ICD Codes: N83.9 - Noninflammatory disorder of ovary, fallopian tube and broad ligament, unspecified SNOMED: 127240984 (7) Altered mental status ICD Codes: R41.82 - Altered mental status, unspecified SNOMED: 641187951 (8) Hypernatremia ICD Codes: E87.0 - Hyperosmolality and hypernatremia SNOMED: 15273807 Assessment/Plan remains confused, ct brain no acute cva, hydrate,rx sepsis, possible nephrostomy in 2 days, levemir, ng feed, ampicillen for enterococcal sepsis hypotonic fluis+water,hit for thrombocytopenia Subjective ROS Limited/Unobtainable: Yes Allergies: Coded Allergies: UNABLE TO ASSESS (Unverified , 02/05/17) Subjective confused pulled out ng Objective Last 24 Hour Vital Signs Date Time Temp Pulse Resp B/P (MAP) Pulse Ox O2 Delivery O2 Flow Rate FiO2 02/10/17 04:00 97.3 74 14 106/68 98 02/10/17 04:00 71 02/10/17 00:00 97.2 71 13 116/61 98 02/10/17 00:00 73 02/09/17 20:00 97.2 73 13 144/85 98 02/09/17 20:00 65 02/09/17 16:00 94.4 74 14 140/85 99 02/09/17 16:00 65 02/09/17 12:00 61 02/09/17 12:00 97.3 63 14 144/78 99 Intake and Output 02/09/17 02/10/17 19:00 07:00 Intake Total 2505 ml 2355 ml Output Total 350 ml 300 ml Balance 2155 ml 2055 ml Free Water 600 ml 600 ml IV Total 1305 ml 1105 ml Tube Feeding 600 ml 650 ml Output Urine Total 350 ml 300 ml # Voids 1 # Bowel Movements 3 Laboratory Tests 02/10/17 03:45: White Blood Count 6.7, Red Blood Count 4.06L, Hemoglobin 13.4, Hematocrit 40.3, Mean Corpuscular Volume 99, Mean Corpuscular Hemoglobin 32.9H, Mean Corpuscular Hemoglobin Concent 33.2, Red Cell Distribution Width 12.0, Platelet Count 28L, Mean Platelet Volume 11.0H, Neutrophils (%) (Auto) , Lymphocytes (%) (Auto) , Monocytes (%) (Auto) , Eosinophils (%) (Auto) , Basophils (%) (Auto) , Neutrophils % (Manual) [Pending], Lymphocytes % (Manual) [Pending], Platelet Estimate [Pending], Platelet Morphology [Pending], Sodium Level 159H, Potassium Level 4.3, Chloride Level 124H, Carbon Dioxide Level 29, Anion Gap 6, Blood Urea Nitrogen 30H, Creatinine 1.0, Estimat Glomerular Filtration Rate , Glucose Level 70#L, Calcium Level 7.6L Height (Feet): 5 Height (Inches): 2.00 Weight (Pounds): 116 General Appearance: no apparent distress, confused EENT: normal ENT inspection Neck: normal alignment Cardiovascular: normal rate, regular rhythm Respiratory/Chest: lungs clear, normal breath sounds Abdomen: non tender, soft Edema: 1+ Arm (L), 1+ Arm (R) Neurologic: disoriented BENOIT GIORDANO Feb 10, 2017 08:20
[2017-02-10 12:00] VITALS: BP 142/84
--- NOTE | 2017-02-10 15:01 | Consultation ---
Consult Note Consult Note GYNECOLOGY CONSULT NOTE Reason for Consult: Complex pelvic mass ATTENDING/CONSULTING PHYSICIAN: Shamar Vega M.D. CHIEF COMPLAINT/HISTORY OF PRESENT ILLNESS: Ms. Khadar Adame is a 71yo female who presented to the ED via EMS after being found down and unresponsive in her apartment. She had altered level of consciousness and was unable to communicate when brought into the ED. In addition to being altered, she was found to be hypotensive, hypothermic, with renal failure. Imaging revealed a right complex adnexal mass demonstrating compression of the right ureter causing a moderate right hydronephrosis. She was admitted to the ICU and received antibiotics, IV fluids, and supportive care with resolution of her azotemia (Creatinine 4.2 on admission, 1.0 at last draw). The patient has been seen by Urology and recommendations have been made for percutaneous nephrostomy. At this time, the patient is sleepy and cannot provide any information. Most information has been gathered from her nurse and from her chart. Of note, Social Work is unable to locate any family for this patient, and prior to her arrival in the ED was living alone. PAST MEDICAL HISTORY: Unknown. PAST SURGICAL HISTORY: Unknown. MEDICATIONS: Ampicillin and NG feeds, remaining medications per chart. ALLERGIES: Unknown. SOCIAL HISTORY: Unobtainable due to mental status. FAMILY HISTORY: Unobtainable due to mental status. REVIEW OF SYSTEMS: A 12-system review of systems cannot be done, as the patient cannot cooperate with questioning. VITALS: Tlast 97.9, BP 109/66, HR 73, RR 20, O2 96% RA PHYSICAL EXAM: Gen: Responds to painful stimuli, does not open eyes, breathing independently, appears overall mildly uncomfortable HEENT: MM dry, unable to assess dentition or OP, NGT in place CV: RRR Pulm: No increased work of breathing, no audible wheezes Abd: Soft, ?mild tenderness to deep palpation R>L (patient winced with deep palpation) Pelvic: DEFERRED given patient mental status Ext: No calf TTP LABS: CBC: 6.7>13.4/40.3<28 BMP: Gluc 70, NA 159, K 4.3, CL 124, CO2 29, BUN 30, CR 1.0 FeNa: 0.19% IMAGING: CT A/P 02/05: Findings: There is slight thickening of the wall the distal esophagus. Consider follow-up endoscopy. Minimal left basilar atelectasis demonstrated. Tiny gallstone demonstrated. There is mild to moderate right hydronephrosis/hydroureter. There is no obstructing stone. The hydronephrosis appears to be secondary to a multicystic mass in the right adnexa. The ureter as it traverses between the right psoas muscle and this mass transitions from [id number] dilatation to normal caliber. The complex cystic mass has multiple septations and is likely ovarian in nature measuring approximately 6.8 x 5.1 x 9.3 cm. There are multiple fibroids within the uterus some calcified. One of the fibroids appears subserosal and projects toward the left adnexa measuring 3.4 cm. There is air within the urinary bladder. Mena catheter noted in good position. Normal appendix is demonstrated. There is no evidence of bowel obstruction. There is no free air, abscess or ascites identified. Mild calcification of the aorta noted. Moderate callus patient noted adjacent to the greater trochanter bilaterally with worse on the right likely calcific tendinopathy/greater trochanter bursitis. IMPRESSION: * Moderate right hydronephrosis secondary to extrinsic compression from a complex cystic right ovarian mass measuring 6.8 x 5.1 x 9.3 cm. 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 HAND III CUTTER follow-up recommended. * Cholelithiasis. * Mild thickening of the visualized distal esophageal wall. Consider follow-up EGD. * Small hiatal hernia also noted. * Mild atherosclerotic disease. * Mena catheter * Uterine fibroids * Bilateral greater trochanteric bursitis/tendinopathy, right worse than left. Assessment/Plan ASSESSMENT/PLAN: Ms. Khadar Adame is a 71yo admitted for AMS, acute renal failure (resolving), sepsis (resolving), found to have a 6.8 x 5.1 x 9.3cm right complex adnexal mass on CT, still minimally responsive, now with thrombocytopenia and normal creatinine. # Complex adnexal mass on the right - Recommend CA-125 (order placed for tomorrow AM) - Patient unable to consent for pelvic exam, thus deferred - Once patient is able to consent to invasive procedures, would recommend transvaginal ultrasound to evaluate adnexa bilaterally - Given her age, risk of malignancy is higher than average, however no ascites or bowel obstruction appreciated on CT - Given her overall clinical presentation and the fact that her adnexal mass is resulting in only moderate hydronephrosis, I believe it is unlikely that this is the primary cause of her acute renal failure - this was likely 2/2 sepsis and dehydration given her resolving lab values despite her hydronephrosis # Thrombocytopenia - platelets 28 at last draw, consider platelet transfusion # AMS, sepsis, and ARF - managed per primary team with recs from Urology - continue ampicillin and IVF resuscitation - continue supportive care - appreciate SW efforts to contact Barbara Hawkins M.D. Feb 10, 2017 15:01
[2017-02-10 16:00] VITALS: BP 115/69
[2017-02-10 20:00] VITALS: BP 150/84
[2017-02-10] MEDS: Levemir Flexpen SUBQ SCH (20:58)
[2017-02-11] VITALS: BP 136/80
[2017-02-11] MEDS: Ampicillin 1 GM in NS 55 ML IVPB SCH ×5 (00:11→23:56)
[2017-02-11 04:00] VITALS: BP 131/80
[2017-02-11] MEDS: 1/2NS w/KCl 20mEq 1000ml 1,000 ML IV SCH ×2 (05:15→10:40)
[2017-02-11] MEDS: NovoLOG Insulin Flexpen SUBQ SCH ×4 (06:30→23:57)
[2017-02-11 06:31] LABS: HEMATOCRIT 38.4 % (37.0-47.0); HEMOGLOBIN 13.2 G/DL (12.0-16.0); MEAN CORPUSCULAR VOLUME 98 FL (80-99); PLATELET COUNT 30 K/UL (150-450); RED BLOOD COUNT 3.91 M/UL (4.20-5.40); RED CELL DISTRIBUTION WIDTH 12.1 % (11.6-14.8)
[2017-02-11 06:45] LABS: ANION GAP 4 mmol/L (5-15); BLOOD UREA NITROGEN 23 mg/dL (7-18); CALCIUM 7.5 MG/DL (8.5-10.1); CARBON DIOXIDE 28 MMOL/L (21-32); CHLORIDE 120 MMOL/L (98-107); CREATININE 0.8 MG/DL (0.55-1.30); POTASSIUM 4.2 MMOL/L (3.5-5.1); SODIUM 152 MMOL/L (136-145)
[2017-02-11 08:00] VITALS: BP 137/78
--- NOTE | 2017-02-11 08:20 | General Progress Note ---
Assessment/Plan Problem List: (1) Severe sepsis ICD Codes: A41.9 - Sepsis, unspecified organism; R65.20 - Severe sepsis without septic shock SNOMED: 20306207 (2) Dehydration ICD Codes: E86.0 - Dehydration SNOMED: 01261405 (3) Hydronephrosis ICD Codes: N13.30 - Unspecified hydronephrosis SNOMED: 50471942 (4) Uremia ICD Codes: N19 - Unspecified kidney failure SNOMED: 54828891 (5) Acute kidney injury ICD Codes: N17.9 - Acute kidney failure, unspecified SNOMED: 87735799 (6) Mass of right ovary ICD Codes: N83.9 - Noninflammatory disorder of ovary, fallopian tube and broad ligament, unspecified SNOMED: 086422067 (7) Altered mental status ICD Codes: R41.82 - Altered mental status, unspecified SNOMED: 974122567 (8) Hypernatremia ICD Codes: E87.0 - Hyperosmolality and hypernatremia SNOMED: 33323788 (9) Thrombocytopenia ICD Codes: D69.6 - Thrombocytopenia, unspecified SNOMED: 767412948 Assessment/Plan remains confused, ct brain no acute cva, hydrate,rx sepsis, , levemir, ng feed , ampicillen for enterococcal sepsis hypotonic fluis+water,hit for thrombocytopenia reduce iv 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 Subjective ROS Limited/Unobtainable: Yes Allergies: Coded Allergies: UNABLE TO ASSESS (Unverified , 02/05/17) Subjective confused pulled out ng Objective Last 24 Hour Vital Signs Date Time Temp Pulse Resp B/P (MAP) Pulse Ox O2 Delivery O2 Flow Rate FiO2 02/11/17 04:00 97.6 70 14 131/80 95 02/11/17 04:00 69 02/11/17 00:00 72 02/11/17 00:00 97.3 73 14 136/80 98 02/10/17 20:00 70 02/10/17 20:00 97.3 76 14 150/84 98 02/10/17 16:00 97.9 91 14 115/69 100 02/10/17 16:00 76 02/10/17 12:00 79 02/10/17 12:00 97.7 71 20 142/84 71 Intake and Output 02/10/17 02/11/17 19:00 07:00 Intake Total 1555 ml 2315 ml Output Total 350 ml 700 ml Balance 1205 ml 1615 ml Free Water 600 ml IV Total 355 ml 1715 ml Tube Feeding 600 ml 600 ml Output Urine Total 350 ml 700 ml # Bowel Movements 1 5 Laboratory Tests 02/11/17 04:00: White Blood Count 7.0, Red Blood Count 3.91L, Hemoglobin 13.2, Hematocrit 38.4, Mean Corpuscular Volume 98, Mean Corpuscular Hemoglobin 33.9H, Mean Corpuscular Hemoglobin Concent 34.4, Red Cell Distribution Width 12.1, Platelet Count 30L, Mean Platelet Volume 13.6H, Neutrophils (%) (Auto) , Lymphocytes (%) (Auto) , Monocytes (%) (Auto) , Eosinophils (%) (Auto) , Basophils (%) (Auto) , Neutrophils % (Manual) [Pending], Lymphocytes % (Manual) [Pending], Platelet Estimate [Pending], Platelet Morphology [Pending], Sodium Level 152H, Potassium Level 4.2, Chloride Level 120H, Carbon Dioxide Level 28, Anion Gap 4L, Blood Urea Nitrogen 23H, Creatinine 0.8, Estimat Glomerular Filtration Rate , Glucose Level 120H, Calcium Level 7.5L, CA 125 Antigen [Pending] Height (Feet): 5 Height (Inches): 2.00 Weight (Pounds): 147 General Appearance: alert, confused EENT: normal ENT inspection Neck: normal alignment Cardiovascular: normal rate, regular rhythm Respiratory/Chest: rhonchi - bilaterally Edema: 1+ Leg (L), 1+ Leg (R) Neurologic: reactor operator II-XII grossly normal Skin: other - st II BENOIT Chi Feb 11, 2017 08:20
[2017-02-11] MEDS ORDERED: 1/2NS w/KCl 20mEq 1000ml 1,000 ML IV SCH (09:00)
--- NOTE | 2017-02-11 11:15 | Wound Care Consultation ---
Wound Assessment Wound Assessment : Wound Present on Admission: Yes New Wound: No Status Change of Wound: No Wound Location Body Site Modif: left, lower Wound Location Body Site: back Wound Type: pressure ulcer Anali Test: Does not Anali Pressure Ulcer Stage: Deep Tissue Injury - revealing as stag II in some areas Wound Thickness: Full Thickness Wound Length: 10.0 Wound Width: 8.0 Wound Depth: utd Percent of Wound [place]/Red: 10 Percent of Wound Purple/Maroon: 90 Wound Drainage Description: Serosanguineous Wound Drainage Amount: Moderate Wound Drainage Odor: None/Absent Tissue Surrounding Wound: Erythemic Wound General Appearance: Reddened - purple/maroon, Draining Wound Comment #1 Left lower back DTI pressure ulcer. Revealing as stage II pressure ulcer on some areas but still with intact DTI on wound bed. #2 Left and right upper back scattered DTI pressure ulcer. Skin intact. Resolved #3 Left heel stage I pressure ulcer. Resolved #4 Left buttock stage I pressure ulcer. Resolved #5 Right heel stage I pressure ulcer. Resolved #6 Chemical burn on perineal area. Good progress noted at this time. #7 Right trochanter DTI pressure ulcer. Resolved. Reassessed this Pt. Good progress noted. Will cont the same recommendation for pressure ulcer prevention below. Will change the wound care treatment on the left lower back as ordered. Recommendation -Local wound care per protocol -Keep clean and dry -Turn and reposition -Optimize nutrition -Offload both heels -Heel protector on both heels -Low air loss mattress -Assess and f/u accordingly for any changes NABEEL MARTINEZ RN Feb 11, 2017 11:15
[2017-02-11 11:45] VITALS: BP 154/88
[2017-02-11] MEDS ORDERED: NovoLOG Insulin Flexpen SUBQ SCH (12:00)
[2017-02-11 16:00] VITALS: BP 151/86
[2017-02-11 20:00] VITALS: BP 115/69
[2017-02-11] MEDS: Levemir Flexpen SUBQ SCH (20:42)
[2017-02-12] VITALS: BP 130/82
[2017-02-12] MEDS: 1/2NS w/KCl 20mEq 1000ml 1,000 ML IV SCH (02:32)
[2017-02-12 04:15] VITALS: BP 136/72
[2017-02-12] MEDS: Ampicillin 1 GM in NS 55 ML IVPB SCH ×2 (05:46→12:18)
[2017-02-12] MEDS: NovoLOG Insulin Flexpen SUBQ SCH ×3 (06:35→16:34)
[2017-02-12 07:43] LABS: HEMATOCRIT 40.1 % (37.0-47.0); HEMOGLOBIN 13.6 G/DL (12.0-16.0); MEAN CORPUSCULAR VOLUME 98 FL (80-99); PLATELET COUNT 31 K/UL (150-450); RED BLOOD COUNT 4.07 M/UL (4.20-5.40); RED CELL DISTRIBUTION WIDTH 12.1 % (11.6-14.8); WHITE BLOOD COUNT 11.3 K/UL (4.8-10.8)
[2017-02-12 08:00] VITALS: BP 127/78
[2017-02-12 08:11] LABS: ANION GAP 3 mmol/L (5-15); BLOOD UREA NITROGEN 19 mg/dL (7-18); CALCIUM 7.7 MG/DL (8.5-10.1); CARBON DIOXIDE 30 MMOL/L (21-32); CHLORIDE 120 MMOL/L (98-107); CREATININE 0.8 MG/DL (0.55-1.30); POTASSIUM 4.1 MMOL/L (3.5-5.1); SODIUM 153 MMOL/L (136-145)
[2017-02-12 12:00] VITALS: BP 140/80
--- NOTE | 2017-02-12 15:01 | Diagnostic Imaging Report ---
Indication: Cough Technique: One view of the chest Comparison: 02/05/2017 Findings: Inspiration is suboptimal. Interim development of infiltrate in the right mid and lower lung. Atelectasis and possibly some infiltrate are also seen at the left lung base. Pleural spaces are grossly clear. The heart is normal in size. There is a nasogastric tube in good position. There is evidence of prior right shoulder surgery Impression: Right mid and lower lung infiltrates, left basilar atelectasis and possible infiltrates Nasogastric tube
[2017-02-12 16:00] VITALS: BP 99/63
--- NOTE | 2017-02-12 16:08 | General Progress Note ---
Assessment/Plan Problem List: (1) Severe sepsis ICD Codes: A41.9 - Sepsis, unspecified organism; R65.20 - Severe sepsis without septic shock SNOMED: 99052762 (2) Dehydration ICD Codes: E86.0 - Dehydration SNOMED: 56916900 (3) Hydronephrosis ICD Codes: N13.30 - Unspecified hydronephrosis SNOMED: 00794209 (4) Uremia ICD Codes: N19 - Unspecified kidney failure SNOMED: 71856437 (5) Acute kidney injury ICD Codes: N17.9 - Acute kidney failure, unspecified SNOMED: 19919647 (6) Mass of right ovary ICD Codes: N83.9 - Noninflammatory disorder of ovary, fallopian tube and broad ligament, unspecified SNOMED: 909895973 (7) Altered mental status ICD Codes: R41.82 - Altered mental status, unspecified SNOMED: 310131880 (8) Hypernatremia ICD Codes: E87.0 - Hyperosmolality and hypernatremia SNOMED: 81055365 (9) Thrombocytopenia ICD Codes: D69.6 - Thrombocytopenia, unspecified SNOMED: 964644469 (10) Aspiration pneumonia ICD Codes: J69.0 - Pneumonitis due to inhalation of food and vomit SNOMED: 723394362 Assessment/Plan remains confused, ct brain no acute cva, hydrate,rx sepsis, , levemir, ng feed , ampicillen for enterococcal sepsis hypotonic fluis+water,hit for thrombocytopenia 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, now asp pneumonia, broaden atb, hhn Subjective ROS Limited/Unobtainable: Yes Allergies: Coded Allergies: UNABLE TO ASSESS (Unverified , 02/05/17) Subjective confused pulled out ng Objective Last 24 Hour Vital Signs Date Time Temp Pulse Resp B/P (MAP) Pulse Ox O2 Delivery O2 Flow Rate FiO2 02/12/17 12:00 97.9 78 19 140/80 91 02/12/17 08:00 97.9 86 20 127/78 92 Nasal Cannula 2.0 02/12/17 04:15 97.5 76 19 136/72 96 Nasal Cannula 02/12/17 00:00 97.2 83 20 130/82 100 Room Air 02/11/17 20:00 97.2 78 20 115/69 92 Room Air Intake and Output 02/11/17 02/12/17 19:00 07:00 Intake Total 1395 ml 1455 ml Output Total 800 ml 600 ml Balance 595 ml 855 ml Free Water 150 ml 200 ml IV Total 625 ml 655 ml Tube Feeding 620 ml 600 ml Output Urine Total 800 ml 600 ml # Bowel Movements 1 Laboratory Tests 02/12/17 04:30: White Blood Count 11.3#H, Red Blood Count 4.07L, Hemoglobin 13.6, Hematocrit 40.1, Mean Corpuscular Volume 98, Mean Corpuscular Hemoglobin 33.4H, Mean Corpuscular Hemoglobin Concent 34.0, Red Cell Distribution Width 12.1, Platelet Count 31L, Mean Platelet Volume 14.0H, Neutrophils (%) (Auto) , Lymphocytes (%) (Auto) , Monocytes (%) (Auto) , Eosinophils (%) (Auto) , Basophils (%) (Auto) , Differential Total Cells Counted 100, Neutrophils % (Manual) 87H, Lymphocytes % (Manual) 9L, Monocytes % (Manual) 4, Eosinophils % (Manual) 0, Basophils % ( Manual) 0, Band Neutrophils 0, Platelet Estimate DecreasedL, Platelet Morphology Normal, Red Blood Cell Morphology Normal, Sodium Level 153H, Potassium Level 4.1, Chloride Level 120H, Carbon Dioxide Level 30, Anion Gap 3L , Blood Urea Nitrogen 19H, Creatinine 0.8, Estimat Glomerular Filtration Rate , Glucose Level 60L, Calcium Level 7.7L Height (Feet): 5 Height (Inches): 2.00 Weight (Pounds): 148 General Appearance: confused, mild distress EENT: normal ENT inspection Neck: normal alignment Cardiovascular: normal rate, regular rhythm Respiratory/Chest: rhonchi - bilaterally Abdomen: non tender, soft Edema: moderate edema Neurologic: disoriented BENOIT GIORDANO Feb 12, 2017 16:08
[2017-02-12 20:00] VITALS: BP 109/65
[2017-02-12] MEDS ORDERED: Vancomycin 1.5 GM/D5W 250ML IVPB ONE (20:00)
[2017-02-12] MEDS: Levemir Flexpen SUBQ SCH (20:45)
[2017-02-13] VITALS: BP 104/65
[2017-02-13] MEDS: Piperacillin/Tazobactam 3.375 GM in NS 110 ML IVPB SCH ×4 (00:54→22:51)
[2017-02-13] MEDS: NovoLOG Insulin Flexpen SUBQ SCH ×4 (01:58→16:48)
[2017-02-13 04:00] VITALS: BP 118/69
[2017-02-13 07:53] VITALS: BP 117/67
[2017-02-13 08:03] LABS: HEMATOCRIT 38.8 % (37.0-47.0); HEMOGLOBIN 12.7 G/DL (12.0-16.0); MEAN CORPUSCULAR VOLUME 98 FL (80-99); PLATELET COUNT 39 K/UL (150-450); RED BLOOD COUNT 3.95 M/UL (4.20-5.40); RED CELL DISTRIBUTION WIDTH 12.2 % (11.6-14.8); WHITE BLOOD COUNT 19.4 K/UL (4.8-10.8)
[2017-02-13 08:13] LABS: ANION GAP 7 mmol/L (5-15); BLOOD UREA NITROGEN 20 mg/dL (7-18); CALCIUM 7.7 MG/DL (8.5-10.1); CARBON DIOXIDE 27 MMOL/L (21-32); CHLORIDE 117 MMOL/L (98-107); POTASSIUM 3.5 MMOL/L (3.5-5.1); SODIUM 151 MMOL/L (136-145)
[2017-02-13 12:00] VITALS: BP 136/80
--- NOTE | 2017-02-13 15:38 | General Progress Note ---
Assessment/Plan Problem List: (1) Severe sepsis ICD Codes: A41.9 - Sepsis, unspecified organism; R65.20 - Severe sepsis without septic shock SNOMED: 30398998 (2) Dehydration ICD Codes: E86.0 - Dehydration SNOMED: 13266001 (3) Hydronephrosis ICD Codes: N13.30 - Unspecified hydronephrosis SNOMED: 15373451 (4) Uremia ICD Codes: N19 - Unspecified kidney failure SNOMED: 21128846 (5) Acute kidney injury ICD Codes: N17.9 - Acute kidney failure, unspecified SNOMED: 16209748 (6) Mass of right ovary ICD Codes: N83.9 - Noninflammatory disorder of ovary, fallopian tube and broad ligament, unspecified SNOMED: 267131792 (7) Altered mental status ICD Codes: R41.82 - Altered mental status, unspecified SNOMED: 025089790 (8) Hypernatremia ICD Codes: E87.0 - Hyperosmolality and hypernatremia SNOMED: 22074850 (9) Thrombocytopenia ICD Codes: D69.6 - Thrombocytopenia, unspecified SNOMED: 891156347 (10) Aspiration pneumonia ICD Codes: J69.0 - Pneumonitis due to inhalation of food and vomit SNOMED: 508569110 Assessment/Plan remains confused, ct brain no acute cva, hydrate,rx sepsis, , levemir, ng feed , ampicillen for enterococcal sepsis hypotonic fluis+water,hit for thrombocytopenia 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, now asp pneumonia, broaden atb, hhn,high residual 1/6 and npo, low Sat on high flow oxygen, doing poorly Subjective ROS Limited/Unobtainable: Yes Allergies: Coded Allergies: UNABLE TO ASSESS (Unverified , 02/05/17) Subjective confused pulled out ng Objective Last 24 Hour Vital Signs Date Time Temp Pulse Resp B/P (MAP) Pulse Ox O2 Delivery O2 Flow Rate FiO2 02/13/17 12:00 98.4 88 18 136/80 86 02/13/17 07:53 97.7 91 20 117/67 92 Nasal Cannula 2.0 02/13/17 04:34 Nasal Cannula 2.0 02/13/17 04:00 97.3 96 20 118/69 95 02/13/17 00:00 Nasal Cannula 2.0 02/13/17 00:00 98.8 66 20 104/65 96 02/12/17 20:00 99.5 76 20 109/65 95 02/12/17 20:00 Nasal Cannula 2.0 02/12/17 16:00 97.7 81 20 99/63 96 Intake and Output 02/12/17 02/13/17 19:00 07:00 Intake Total 260 ml 430.0 ml Output Total 800 ml 650 ml Balance -540 ml -220.0 ml IV Total 60 ml 430.0 ml Tube Feeding 200 ml Output Urine Total 800 ml 650 ml # Bowel Movements 1 Laboratory Tests 02/13/17 06:25: White Blood Count 19.4#H, Red Blood Count 3.95L, Hemoglobin 12.7, Hematocrit 38.8, Mean Corpuscular Volume 98, Mean Corpuscular Hemoglobin 32.3H, Mean Corpuscular Hemoglobin Concent 32.9, Red Cell Distribution Width 12.2, Platelet Count 39L, Mean Platelet Volume 13.2H, Neutrophils (%) (Auto) , Lymphocytes (%) (Auto) , Monocytes (%) (Auto) , Eosinophils (%) (Auto) , Basophils (%) (Auto) , Differential Total Cells Counted 100, Neutrophils % (Manual) 87H, Lymphocytes % (Manual) 8L, Monocytes % (Manual) 4, Eosinophils % (Manual) 1, Basophils % ( Manual) 0, Band Neutrophils 0, Platelet Estimate DecreasedL, Platelet Morphology Normal, Anisocytosis 1+, Sodium Level 151H, Potassium Level 3.5, Chloride Level 117H, Carbon Dioxide Level 27, Anion Gap 7, Blood Urea Nitrogen 20H, Creatinine 1.0, Estimat Glomerular Filtration Rate , Glucose Level 145H, Calcium Level 7.7L Height (Feet): 5 Height (Inches): 2.00 Weight (Pounds): 147 General Appearance: lethargic, mild distress EENT: normal ENT inspection Neck: normal alignment Cardiovascular: normal rate Respiratory/Chest: rhonchi - bilaterally Abdomen: soft, no organomegaly Edema: moderate edema Neurologic: disoriented, unresponsive BENOIT GIORDANO Feb 13, 2017 15:38
[2017-02-13 16:00] VITALS: BP 132/79
[2017-02-13] MEDS: Pantoprazole Inj IVP SCH (16:40)
--- NOTE | 2017-02-13 18:24 | Consultation ---
Consult Note Assessment/Plan #[id number] sepsis ?CHF, elevated troponin 02/05 pna aspiration ams elevated wbc enterococcus bactermia recheck cultures check echo and troponins may need diuresis may benefit from thoracentesis as well nebs and suction continue iv abx monitor closely abg as well CHARAN ESCALERA DO Feb 13, 2017 18:24
[2017-02-13] MEDS: Albuterol/Ipratropium 3ml neb HHN SCH ×2 (19:38→23:02)
[2017-02-13 20:00] VITALS: BP 136/70
[2017-02-13] MEDS: Vancomycin 1gm/D5W 275ml IVPB SCH ×2 (20:23)
[2017-02-13] MEDS ORDERED: Levemir Flexpen SUBQ SCH (21:00)
[2017-02-13] MEDS ORDERED: D5 1/2NS 1000ml IV ONE (22:37)
[2017-02-13] MEDS ORDERED: NS 500ML ONE (22:37)
[2017-02-13] MEDS ORDERED: NS 275ml ONE (22:37)
[2017-02-13] MEDS ORDERED: 1/2 NS 1000ml IV ONE ×2 (22:37→22:50)
[2017-02-13] MEDS ORDERED: Tubing IV Secondary IV ONE (22:50)
[2017-02-14] VITALS: BP 135/69
[2017-02-14] MEDS: NovoLOG Insulin Flexpen SUBQ SCH ×4 (00:22→18:49)
--- NOTE | 2017-02-14 01:30 | Consultation ---
DATE OF CONSULTATION: 02/13/2017 PULMONARY CONSULTATION CONSULTING PHYSICIAN: Miesha Mcdonough D.O. REASON FOR CONSULTATION: Shortness of breath. HISTORY OF PRESENT ILLNESS: The patient was admitted on 02/05/2017 with altered mental status and hypotension. She was brought in. She was found down in her apartment unable to communicate, initially transferred to the intensive care unit, subsequently was then transferred to the floor. Over the last 24 to 48 hours, she has remained obtunded. NG tube in place, on face mask. CT of the brain was negative without acute CVA. She is on IV fluids. G-tube feedings with glycemic control and IV antibiotics for enterococcal sepsis. Chest x-ray is showing pneumonia. Cultures are still pending. PAST MEDICAL HISTORY: Unavailable. SOCIAL HISTORY: Unavailable. FAMILY HISTORY: Unavailable. MEDICATIONS: Prehospital medications are unavailable as well. PHYSICAL EXAMINATION: GENERAL: At the time of my exam, she is obtunded, on face mask, does not follow commands. VITAL SIGNS: She is currently afebrile, pulse 76, respirations 18, and blood pressure 132/79. HEENT: She is normocephalic and atraumatic. Oropharynx is moist. Nasal mucosa is moist. NECK: Supple without lymphadenopathy. LUNGS: Bilateral rhonchi with no wheezes. HEART: Regular rate and rhythm without any murmur. ABDOMEN: Soft and nontender. Positive bowel sounds. EXTREMITIES: With positive edema. NEUROLOGICAL: She does not follow commands. SKIN: No skin rashes. No lesions are present. NG tube is in place. LABORATORY AND IMAGING DATA: Her white count is elevated at 19.4, hemoglobin 12.7, and platelets are 39,000. Sodium is 151, potassium 3.5, chloride 117, bicarbonate 27, BUN 20, creatinine 1, and glucose is 149. Her urinalysis is positive for leukocyte esterase. Blood gas, which was last drawn on 02/05/2017 was 7.3, 726, and 167. panel is pending at this time. A chest x-ray yesterday, right middle lobe and lower lobe infiltrates and atelectasis. NG tube is in place. Also, an element of congestive heart failure seems to be present. There is no report of an echo as well as recently her last troponin on 02/06/2017 was 0.253. It does not appear an echo has been obtained either. ASSESSMENT AND PLAN: 1. Questionable underlying congestive heart failure. 2. Hypoxemia. 3. Altered mental status. 4. Pneumonia. 5. History of diabetes. 6. Gastroesophageal reflux disease. 7. Sepsis. 8. Enterococcus faecalis bacteremia. PLAN FOR THE PATIENT: We will check a baseline ABG since one has not been taken at some time. We will trend cardiac troponins. We will check a 2D echo. Check lower extremity Duplex to rule out DVT. Nebulizer treatments. May benefit from diuresis. Titrate O2 for saturation greater than 90%. NPO and NG tube. Continue broad-spectrum antibiotics and would repeat cultures as needed as her white count is down to 17, although she has currently been afebrile for the last 48 hours. We will continue to follow up the patient and monitor her closely. Miesha Mcdonough D.O. DR: ROBBIE/eufemia JOB#: [id number] CC:
[2017-02-14] MEDS: Albuterol/Ipratropium 3ml neb HHN SCH ×6 (02:36→23:32)
[2017-02-14 04:00] VITALS: BP 134/69
[2017-02-14] MEDS: Piperacillin/Tazobactam 3.375 GM in NS 110 ML IVPB SCH ×3 (06:05→22:52)
[2017-02-14 07:24] LABS: HEMATOCRIT 34.8 % (37.0-47.0); HEMOGLOBIN 11.6 G/DL (12.0-16.0); MEAN CORPUSCULAR VOLUME 99 FL (80-99); PLATELET COUNT 75 K/UL (150-450); RED BLOOD COUNT 3.52 M/UL (4.20-5.40); RED CELL DISTRIBUTION WIDTH 12.3 % (11.6-14.8); WHITE BLOOD COUNT 15.9 K/UL (4.8-10.8)
[2017-02-14 07:32] LABS: ANION GAP 7 mmol/L (5-15); BLOOD UREA NITROGEN 18 mg/dL (7-18); CALCIUM 7.1 MG/DL (8.5-10.1); CARBON DIOXIDE 27 MMOL/L (21-32); CHLORIDE 116 MMOL/L (98-107); CREATININE 1.1 MG/DL (0.55-1.30); POTASSIUM 3.1 MMOL/L (3.5-5.1); SODIUM 150 MMOL/L (136-145)
[2017-02-14 08:00] VITALS: BP 144/82
[2017-02-14 08:29] LABS: APPEARANCE,URINE CLEAR; BILIRUBIN, URINE NEGATIVE (NEGATIVE); GLUCOSE, URINE (UA) 3+ (NEGATIVE); KETONES,URINE NEGATIVE (NEGATIVE); LEUKOCYTE ESTERASE ,URINE NEGATIVE (NEGATIVE); NITRITE,URINE NEGATIVE (NEGATIVE); PH,URINE 6 (4.5-8.0); PROTEIN,URINE 2+ (NEGATIVE); UROBILINOGEN,URINE NORMAL MG/DL (0.0-1.0)
[2017-02-14 08:34] LABS: COLOR,URINE YELLOW
[2017-02-14] MEDS: Pantoprazole Inj IVP SCH (08:48)
--- NOTE | 2017-02-14 11:28 | General Progress Note ---
Assessment/Plan Problem List: (1) Severe sepsis ICD Codes: A41.9 - Sepsis, unspecified organism; R65.20 - Severe sepsis without septic shock SNOMED: 74488362 (2) Dehydration ICD Codes: E86.0 - Dehydration SNOMED: 28456418 (3) Hydronephrosis ICD Codes: N13.30 - Unspecified hydronephrosis SNOMED: 64918629 (4) Uremia ICD Codes: N19 - Unspecified kidney failure SNOMED: 28091132 (5) Acute kidney injury ICD Codes: N17.9 - Acute kidney failure, unspecified SNOMED: 05456433 (6) Mass of right ovary ICD Codes: N83.9 - Noninflammatory disorder of ovary, fallopian tube and broad ligament, unspecified SNOMED: 009343486 (7) Altered mental status ICD Codes: R41.82 - Altered mental status, unspecified SNOMED: 483642831 (8) Hypernatremia ICD Codes: E87.0 - Hyperosmolality and hypernatremia SNOMED: 26521915 (9) Thrombocytopenia ICD Codes: D69.6 - Thrombocytopenia, unspecified SNOMED: 760675944 (10) Aspiration pneumonia ICD Codes: J69.0 - Pneumonitis due to inhalation of food and vomit SNOMED: 118008506 Assessment/Plan remains confused, ct brain no acute cva, hydrate,rx sepsis, , levemir, ng feed , ampicillen for enterococcal sepsis hypotonic fluis+water,hit for thrombocytopenia 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, now asp pneumonia, broaden atb, hhn,high residual 02/13 and npo,restart feed 02/14 monitor glu low Sat on high flow oxygen, doing poorly Subjective ROS Limited/Unobtainable: Yes Allergies: Coded Allergies: UNABLE TO ASSESS (Unverified , 02/05/17) Subjective confused pulled out ng Objective Last 24 Hour Vital Signs Date Time Temp Pulse Resp B/P (MAP) Pulse Ox O2 Delivery O2 Flow Rate FiO2 02/14/17 08:00 74 20 99 Venturi Mask 14.0 55 02/14/17 08:00 97.3 72 18 144/82 98 02/14/17 08:00 Venturi Mask 14.0 02/14/17 07:51 Venturi Mask 55 02/14/17 07:51 76 20 98 Venturi Mask 14.0 55 02/14/17 07:50 98 Venturi Mask 55 02/14/17 07:49 69 20 Venturi Mask 55 02/14/17 04:00 Venturi Mask 14.0 02/14/17 04:00 97.9 73 20 134/69 94 02/14/17 02:50 75 20 96 Venturi Mask 14.0 55 02/14/17 02:37 78 20 95 Venturi Mask 14.0 55 02/14/17 00:00 Venturi Mask 14.0 02/14/17 00:00 98.2 73 20 135/69 93 02/13/17 23:08 68 20 94 Venturi Mask 14.0 55 02/13/17 23:02 73 20 93 Venturi Mask 14.0 55 02/13/17 21:49 Venturi Mask 14.0 02/13/17 20:00 Nasal Cannula 2.0 02/13/17 20:00 98.2 73 20 136/70 92 02/13/17 19:38 68 20 95 Simple Mask 5.0 44 02/13/17 16:00 97.8 76 18 132/79 93 02/13/17 12:00 98.4 88 18 136/80 86 Intake and Output 02/13/17 02/14/17 19:00 07:00 Intake Total 110.0 ml 760.000 ml Balance 110.0 ml 760.000 ml IV Total 110.0 ml 760.000 ml Laboratory Tests 02/13/17 18:24: Arterial Blood pH 7.437, Arterial Blood Partial Pressure CO2 42.7, Arterial Blood Partial Pressure O2 57.0L, Arterial Blood HCO3 28.2H, Arterial Blood Oxygen Saturation 88.4L, Arterial Blood Base Excess 3.5, Rodolfo Test Positive 02/14/17 01:32: Urine Color Yellow, Urine Appearance Clear, Urine pH 6, Urine Specific [place] 1.010, Urine Protein 2+H, Urine Glucose (UA) 3+H, Urine Ketones Negative, Urine Occult Blood 2+H, Urine Nitrite Negative, Urine Bilirubin Negative, Urine Urobilinogen Normal, Urine Leukocyte Esterase Negative, Urine RBC 5-10H, Urine WBC 0-2, Urine Squamous Epithelial Cells Few, Urine Bacteria Few 02/14/17 06:35: White Blood Count 15.9H, Red Blood Count 3.52L, Hemoglobin 11.6L, Hematocrit 34.8L, Mean Corpuscular Volume 99, Mean Corpuscular Hemoglobin 32.9H, Mean Corpuscular Hemoglobin Concent 33.3, Red Cell Distribution Width 12.3, Platelet Count 75#L, Mean Platelet Volume 9.0, Neutrophils (%) (Auto) , Lymphocytes (%) ( Auto) , Monocytes (%) (Auto) , Eosinophils (%) (Auto) , Basophils (%) (Auto) , Differential Total Cells Counted 100, Neutrophils % (Manual) 92H, Lymphocytes % (Manual) 5L, Monocytes % (Manual) 2, Eosinophils % (Manual) 1, Basophils % ( Manual) 0, Band Neutrophils 0, Platelet Estimate DecreasedL, Platelet Morphology Normal, Macrocytosis 1+, Sodium Level 150H, Potassium Level 3.1L, Chloride Level 116H, Carbon Dioxide Level 27, Anion Gap 7, Blood Urea Nitrogen 18, Creatinine 1.1, Estimat Glomerular Filtration Rate , Glucose Level 151H, Calcium Level 7.1L, Troponin I 0.001, Pro-B-Type Natriuretic Peptide 737H Height (Feet): 5 Height (Inches): 2.00 Weight (Pounds): 146 General Appearance: lethargic EENT: normal ENT inspection Neck: normal alignment Cardiovascular: regular rhythm Respiratory/Chest: rhonchi - bilaterally Abdomen: non tender, soft Edema: moderate edema Neurologic: unresponsive Skin: other - BENOIT Chi Feb 14, 2017 11:28
[2017-02-14 12:00] VITALS: BP 140/50
--- NOTE | 2017-02-14 15:36 | Pulmonology Progress Note ---
Assessment/Plan Assessment/Plan 1. Questionable underlying congestive heart failure. 2. Hypoxemia. 3. Altered mental status. 4. Pneumonia. 5. History of diabetes. 6. Gastroesophageal reflux disease. 7. Sepsis. 8. Enterococcus faecalis bacteremia. PLAN CXR pendign today, unable to see on PAEC troponin negative this am We will check a 2D echo pending Check lower extremity Duplex to rule out DVTpending Nebulizer treatments. May benefit from diuresis. Titrate O2 for saturation greater than 90%. NPO and NG tube. Continue broad-spectrum antibiotics and would repeat cultures Subjective ROS Limited/Unobtainable: Yes Allergies: Coded Allergies: UNABLE TO ASSESS (Unverified , 02/05/17) Subjective remains obtunded on fm tolerating tf no reports of cp nv or bleeding positive uop does not follow commands Objective Last 24 Hour Vital Signs Date Time Temp Pulse Resp B/P (MAP) Pulse Ox O2 Delivery O2 Flow Rate FiO2 02/14/17 12:00 98.0 66 18 140/50 97 02/14/17 11:40 70 20 97 Venturi Mask 14.0 55 02/14/17 11:30 69 20 98 Venturi Mask 14.0 55 02/14/17 08:00 74 20 99 Venturi Mask 14.0 55 02/14/17 08:00 97.3 72 18 144/82 98 02/14/17 08:00 Venturi Mask 14.0 02/14/17 07:51 Venturi Mask 55 02/14/17 07:51 76 20 98 Venturi Mask 14.0 55 02/14/17 07:50 98 Venturi Mask 55 02/14/17 07:49 69 20 Venturi Mask 55 02/14/17 04:00 Venturi Mask 14.0 02/14/17 04:00 97.9 73 20 134/69 94 02/14/17 02:50 75 20 96 Venturi Mask 14.0 55 02/14/17 02:37 78 20 95 Venturi Mask 14.0 55 02/14/17 00:00 Venturi Mask 14.0 02/14/17 00:00 98.2 73 20 135/69 93 02/13/17 23:08 68 20 94 Venturi Mask 14.0 55 02/13/17 23:02 73 20 93 Venturi Mask 14.0 55 02/13/17 21:49 Venturi Mask 14.0 02/13/17 20:00 Nasal Cannula 2.0 02/13/17 20:00 98.2 73 20 136/70 92 02/13/17 19:38 68 20 95 Simple Mask 5.0 44 02/13/17 16:00 97.8 76 18 132/79 93 Intake and Output 02/13/17 02/14/17 19:00 07:00 Intake Total 110.0 ml 760.000 ml Balance 110.0 ml 760.000 ml IV Total 110.0 ml 760.000 ml General Appearance: WD/WN Respiratory/Chest: crackles/rales, rhonchi Cardiovascular: normal rate, murmur systolic, edema Abdomen: soft, non tender, no organomegaly Neurologic/Psychiatric: disoriented, unresponsiveness Microbiology Date/Time Source Procedure Growth Status 02/13/17 11:50 Sputum Gram Stain - Final Resulted 02/13/17 11:50 Sputum Sputum Culture Pending Resulted Laboratory Tests 02/13/17 18:24: Arterial Blood pH 7.437, Arterial Blood Partial Pressure CO2 42.7, Arterial Blood Partial Pressure O2 57.0L, Arterial Blood HCO3 28.2H, Arterial Blood Oxygen Saturation 88.4L, Arterial Blood Base Excess 3.5, Rodolfo Test Positive 02/14/17 01:32: Urine Color Yellow, Urine Appearance Clear, Urine pH 6, Urine Specific [place] 1.010, Urine Protein 2+H, Urine Glucose (UA) 3+H, Urine Ketones Negative, Urine Occult Blood 2+H, Urine Nitrite Negative, Urine Bilirubin Negative, Urine Urobilinogen Normal, Urine Leukocyte Esterase Negative, Urine RBC 5-10H, Urine WBC 0-2, Urine Squamous Epithelial Cells Few, Urine Bacteria Few 02/14/17 06:35: White Blood Count 15.9H, Red Blood Count 3.52L, Hemoglobin 11.6L, Hematocrit 34.8L, Mean Corpuscular Volume 99, Mean Corpuscular Hemoglobin 32.9H, Mean Corpuscular Hemoglobin Concent 33.3, Red Cell Distribution Width 12.3, Platelet Count 75#L, Mean Platelet Volume 9.0, Neutrophils (%) (Auto) , Lymphocytes (%) ( Auto) , Monocytes (%) (Auto) , Eosinophils (%) (Auto) , Basophils (%) (Auto) , Differential Total Cells Counted 100, Neutrophils % (Manual) 92H, Lymphocytes % (Manual) 5L, Monocytes % (Manual) 2, Eosinophils % (Manual) 1, Basophils % ( Manual) 0, Band Neutrophils 0, Platelet Estimate DecreasedL, Platelet Morphology Normal, Macrocytosis 1+, Sodium Level 150H, Potassium Level 3.1L, Chloride Level 116H, Carbon Dioxide Level 27, Anion Gap 7, Blood Urea Nitrogen 18, Creatinine 1.1, Estimat Glomerular Filtration Rate , Glucose Level 151H, Calcium Level 7.1L, Troponin I 0.001, Pro-B-Type Natriuretic Peptide 737H Current Medications Medications (Trade) Dose Ordered Sig/Prashant Route PRN Reason Start Time Stop Time Status Last Admin Dose Admin Albuterol/ Ipratropium (Albuterol/ Ipratropium) 3 ml Q4HRT HHN 02/13/17 19:00 02/18/17 18:59 02/14/17 11:29 Dextrose (Dextrose 50%) STAT PRN IV Hypoglycemia 02/12/17 08:15 03/07/17 08:04 Insulin Aspart (NovoLOG) Q6HR SUBQ 02/11/17 12:00 03/07/17 16:29 02/14/17 12:20 Insulin Detemir (Levemir) 12 units BEDTIME SUBQ 02/14/17 21:00 03/16/17 20:59 Metoclopramide HCl (Reglan) 10 mg Q8H PRN GT Nausea & Vomiting 02/13/17 15:45 03/15/17 15:44 Pantoprazole (Protonix) 40 mg DAILY IVP 02/13/17 15:45 03/15/17 15:44 02/14/17 08:48 Piperacillin Sod/ Tazobactam Sod 3.375 gm/Sodium Chloride 110 ml @ 27.5 mls/hr Q8HR IVPB 02/12/17 22:00 02/19/17 21:59 02/14/17 13:41 Potassium Chloride 30 meq/ Dextrose 1,015 ml @ 60 mls/hr [id number] IV 02/14/17 14:00 03/16/17 13:59 02/14/17 14:21 Vancomycin HCl (Vanco rx to dose) 1 ea DAILY PRN MISC Per rx protocol 02/12/17 16:15 03/14/17 16:14 Vancomycin HCl 1 gm/Dextrose 275 ml @ 183.708 mls/hr Q24H IVPB 02/13/17 20:00 02/18/17 19:59 02/13/17 20:23 CHARAN ESCALERA DO Feb 14, 2017 15:36
[2017-02-14 15:46] VITALS: BP 120/66
[2017-02-14 20:00] VITALS: BP 118/66
[2017-02-14] MEDS: Vancomycin 1gm/D5W 275ml IVPB SCH ×2 (20:39)
[2017-02-14] MEDS: Levemir Flexpen SUBQ SCH (20:49)
[2017-02-15] VITALS: BP 129/71
[2017-02-15] MEDS: NovoLOG Insulin Flexpen SUBQ SCH ×4 (00:37→18:00)
[2017-02-15] MEDS: Albuterol/Ipratropium 3ml neb HHN SCH ×5 (03:56→20:09)
[2017-02-15 04:00] VITALS: BP 123/69
[2017-02-15] MEDS: Piperacillin/Tazobactam 3.375 GM in NS 110 ML IVPB SCH ×4 (05:32→23:30)
[2017-02-15 08:00] VITALS: BP 125/64
--- NOTE | 2017-02-15 08:56 | General Progress Note ---
Assessment/Plan Problem List: (1) Severe sepsis ICD Codes: A41.9 - Sepsis, unspecified organism; R65.20 - Severe sepsis without septic shock SNOMED: 44736425 (2) Dehydration ICD Codes: E86.0 - Dehydration SNOMED: 84035580 (3) Hydronephrosis ICD Codes: N13.30 - Unspecified hydronephrosis SNOMED: 08130688 (4) Uremia ICD Codes: N19 - Unspecified kidney failure SNOMED: 96940564 (5) Acute kidney injury ICD Codes: N17.9 - Acute kidney failure, unspecified SNOMED: 25748152 (6) Mass of right ovary ICD Codes: N83.9 - Noninflammatory disorder of ovary, fallopian tube and broad ligament, unspecified SNOMED: 270808575 (7) Altered mental status ICD Codes: R41.82 - Altered mental status, unspecified SNOMED: 892192708 (8) Hypernatremia ICD Codes: E87.0 - Hyperosmolality and hypernatremia SNOMED: 55443366 (9) Thrombocytopenia ICD Codes: D69.6 - Thrombocytopenia, unspecified SNOMED: 243708404 (10) Aspiration pneumonia ICD Codes: J69.0 - Pneumonitis due to inhalation of food and vomit SNOMED: 496933563 Assessment/Plan remains confused, ct brain no acute cva, hydrate,rx sepsis, , levemir, ng feed , ampicillen for enterococcal sepsis hypotonic fluis+water,hit for thrombocytopenia 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, now asp pneumonia, broaden atb, hhn,high residual 02/13 and npo,restart feed 02/14 monitor glu low Sat on high flow oxygen, doing poorly bioethics consult Subjective ROS Limited/Unobtainable: Yes Allergies: Coded Allergies: UNABLE TO ASSESS (Unverified , 02/05/17) Subjective confused pulled out ng Objective Last 24 Hour Vital Signs Date Time Temp Pulse Resp B/P (MAP) Pulse Ox O2 Delivery O2 Flow Rate FiO2 02/15/17 08:33 Venturi Mask 14.0 55 02/15/17 08:32 Venturi Mask 14.0 55 02/15/17 04:10 76 20 95 Venturi Mask 12.0 50 02/15/17 04:00 97.3 71 20 123/69 100 Venturi Mask 14.0 02/15/17 03:56 71 22 97 Venturi Mask 14.0 55 02/15/17 03:56 55 02/15/17 00:00 98.1 80 20 129/71 100 Venturi Mask 14.0 02/14/17 23:45 68 20 99 Venturi Mask 14.0 55 02/14/17 23:30 64 18 97 Venturi Mask 14.0 55 02/14/17 23:30 55 02/14/17 20:00 98.1 72 20 118/66 96 Venturi Mask 14.0 02/14/17 18:20 76 22 98 Venturi Mask 14.0 55 02/14/17 18:19 97 Venturi Mask 14.0 55 02/14/17 18:17 Venturi Mask 14.0 55 02/14/17 18:14 76 22 96 Venturi Mask 14.0 55 02/14/17 15:52 74 20 96 Venturi Mask 14.0 55 02/14/17 15:46 98.1 68 20 120/66 95 02/14/17 15:42 70 20 97 Venturi Mask 14.0 55 02/14/17 12:00 98.0 66 18 140/50 97 02/14/17 11:40 70 20 97 Venturi Mask 14.0 55 02/14/17 11:30 69 20 98 Venturi Mask 14.0 55 Intake and Output 02/14/17 02/15/17 19:00 07:00 Intake Total 1297.5 ml 1180.04 ml Output Total 800 ml 600 ml Balance 497.5 ml 580.04 ml Free Water 400 ml 200 ml IV Total 717.5 ml 650.04 ml Tube Feeding 180 ml 330 ml Output Urine Total 800 ml 600 ml # Bowel Movements 3 Height (Feet): 5 Height (Inches): 2.00 Weight (Pounds): 147 General Appearance: lethargic EENT: normal ENT inspection Neck: normal alignment Cardiovascular: regular rhythm Respiratory/Chest: rhonchi - bilaterally Abdomen: non tender Extremities: no calf tenderness Edema: moderate edema Neurologic: unresponsive BENOIT GIORDANO Feb 15, 2017 08:56
--- NOTE | 2017-02-15 09:09 | Pulmonology Progress Note ---
Assessment/Plan Assessment/Plan 1. Questionable underlying congestive heart failure. 2. Hypoxemia. 3. Altered mental status. 4. Pneumonia. 5. History of diabetes. 6. Gastroesophageal reflux disease. 7. Sepsis. 8. Enterococcus faecalis bacteremia. PLAN CXR shows bilateral infiltrates troponin negative this am 2D echo pending Check lower extremity Duplex to rule out DVTpending Nebulizer treatments. May benefit from diuresis. Titrate O2 for saturation greater than 90%. NPO and NG tube. Continue broad-spectrum antibiotics and would repeat cultures Subjective Interval Events: None Constitutional: Reports: no symptoms HEENT: Repors: no symptoms Respiratory: Reports: shortness of breath Cardiovascular: Reports: no symptoms Allergies: Coded Allergies: UNABLE TO ASSESS (Unverified , 02/05/17) Objective Last 24 Hour Vital Signs Date Time Temp Pulse Resp B/P (MAP) Pulse Ox O2 Delivery O2 Flow Rate FiO2 02/15/17 08:33 Venturi Mask 14.0 55 02/15/17 08:32 Venturi Mask 14.0 55 02/15/17 04:10 76 20 95 Venturi Mask 12.0 50 02/15/17 04:00 97.3 71 20 123/69 100 Venturi Mask 14.0 02/15/17 03:56 71 22 97 Venturi Mask 14.0 55 02/15/17 03:56 55 02/15/17 00:00 98.1 80 20 129/71 100 Venturi Mask 14.0 02/14/17 23:45 68 20 99 Venturi Mask 14.0 55 02/14/17 23:30 64 18 97 Venturi Mask 14.0 55 02/14/17 23:30 55 02/14/17 20:00 98.1 72 20 118/66 96 Venturi Mask 14.0 02/14/17 18:20 76 22 98 Venturi Mask 14.0 55 02/14/17 18:19 97 Venturi Mask 14.0 55 02/14/17 18:17 Venturi Mask 14.0 55 02/14/17 18:14 76 22 96 Venturi Mask 14.0 55 02/14/17 15:52 74 20 96 Venturi Mask 14.0 55 02/14/17 15:46 98.1 68 20 120/66 95 02/14/17 15:42 70 20 97 Venturi Mask 14.0 55 02/14/17 12:00 98.0 66 18 140/50 97 02/14/17 11:40 70 20 97 Venturi Mask 14.0 55 02/14/17 11:30 69 20 98 Venturi Mask 14.0 55 Intake and Output 02/14/17 02/15/17 19:00 07:00 Intake Total 1297.5 ml 1180.04 ml Output Total 800 ml 600 ml Balance 497.5 ml 580.04 ml Free Water 400 ml 200 ml IV Total 717.5 ml 650.04 ml Tube Feeding 180 ml 330 ml Output Urine Total 800 ml 600 ml # Bowel Movements 3 General Appearance: no acute distress HEENT: normocephalic Respiratory/Chest: chest wall non-tender, lungs clear Cardiovascular: normal peripheral pulses, normal rate Microbiology Date/Time Source Procedure Growth Status 02/13/17 11:50 Nasal Aspirate MRSA Culture - Final NO METHICILLIN RESISTANT STAPH AUREUS... Complete 02/13/17 11:50 Sputum Gram Stain - Final Resulted 02/13/17 11:50 Sputum Culture - Preliminary YEAST Resulted Current Medications Medications (Trade) Dose Ordered Sig/Prashatn Route PRN Reason Start Time Stop Time Status Last Admin Dose Admin Albuterol/ Ipratropium (Albuterol/ Ipratropium) 3 ml Q4HRT HHN 02/13/17 19:00 02/18/17 18:59 02/15/17 03:56 Dextrose (Dextrose 50%) STAT PRN IV Hypoglycemia 02/12/17 08:15 03/07/17 08:04 Insulin Aspart (NovoLOG) Q6HR SUBQ 02/11/17 12:00 03/07/17 16:29 02/15/17 05:39 Insulin Detemir (Levemir) 12 units BEDTIME SUBQ 02/14/17 21:00 03/16/17 20:59 02/14/17 20:49 Metoclopramide HCl (Reglan) 10 mg Q8H PRN GT Nausea & Vomiting 02/13/17 15:45 03/15/17 15:44 Pantoprazole (Protonix) 40 mg DAILY IVP 02/13/17 15:45 03/15/17 15:44 02/14/17 08:48 Piperacillin Sod/ Tazobactam Sod 3.375 gm/Sodium Chloride 110 ml @ 27.5 mls/hr Q8HR IVPB 02/12/17 22:00 02/19/17 21:59 02/15/17 05:32 Potassium Chloride 30 meq/ Dextrose 1,015 ml @ 60 mls/hr [id number] IV 02/14/17 14:00 03/16/17 13:59 02/14/17 14:21 Vancomycin HCl (Vanco rx to dose) 1 ea DAILY PRN MISC Per rx protocol 02/12/17 16:15 03/14/17 16:14 Vancomycin HCl 1 gm/Dextrose 275 ml @ 183.708 mls/hr Q24H IVPB 02/13/17 20:00 02/18/17 19:59 02/14/17 20:39 Ace Bueno MD Feb 15, 2017 09:09
[2017-02-15] MEDS: Pantoprazole Inj IVP SCH (09:24)
--- NOTE | 2017-02-15 11:47 | Wound Care Consultation ---
Wound Assessment Wound Assessment : Wound Present on Admission: Yes New Wound: No Status Change of Wound: No Wound Location Body Site Modif: left, lower Wound Location Body Site: back Wound Type: pressure ulcer Anali Test: Does not Anali Pressure Ulcer Stage: Unstageable Wound Thickness: Full Thickness Wound Length: 10.0 Wound Width: 8.0 Wound Depth: utd Percent of Wound Ben Arnold/Red: 60 Percent of Wound Bed Yellow/Wh: 30 Percent of Wound Purple/Maroon: 10 Wound Drainage Description: Serosanguineous Wound Drainage Amount: Moderate Wound Drainage Odor: None/Absent Tissue Surrounding Wound: Erythemic Wound General Appearance: Reddened - yellow,purple/maroon, Draining Wound Comment #1 Left lower back DTI pressure ulcer. fully Revealing as unstageable pressure ulcer. Cont same wound care ordered and recommendations NABEEL MARTINEZ RN Feb 15, 2017 11:47
[2017-02-15 12:00] VITALS: BP 125/65
[2017-02-15 16:30] VITALS: BP 129/68
[2017-02-15 20:00] VITALS: BP 135/70
[2017-02-15 21:04] LABS: BASOPHILS % (AUTO) 0.9 % (0.0-2.0); EOSINOPHILS % (AUTO) 1.9 % (0.0-3.0); HEMATOCRIT 33.3 % (37.0-47.0); HEMOGLOBIN 10.7 G/DL (12.0-16.0); LYMPHOCYTES % (AUTO) 11.2 % (20.0-45.0); MEAN CORPUSCULAR VOLUME 98 FL (80-99); MONOCYTES % (AUTO) 4.2 % (1.0-10.0); NEUTROPHILS % (AUTO) 81.8 % (45.0-75.0); PLATELET COUNT 151 K/UL (150-450); RED BLOOD COUNT 3.39 M/UL (4.20-5.40); RED CELL DISTRIBUTION WIDTH 11.6 % (11.6-14.8)
[2017-02-15] MEDS: Levemir Flexpen SUBQ SCH (21:11)
[2017-02-15 21:17] LABS: ANION GAP 7 mmol/L (5-15); BLOOD UREA NITROGEN 12 mg/dL (7-18); CALCIUM 7.2 MG/DL (8.5-10.1); CARBON DIOXIDE 27 MMOL/L (21-32); CHLORIDE 113 MMOL/L (98-107); CREATININE 0.8 MG/DL (0.55-1.30); POTASSIUM 3.2 MMOL/L (3.5-5.1); SODIUM 147 MMOL/L (136-145)
[2017-02-15] MEDS: Vancomycin 1gm/D5W 275ml IVPB SCH ×2 (21:33)
--- NOTE | 2017-02-15 21:47 | Diagnostic Imaging Report ---
Indication: Abdominal pain Comparison: February 09, 2017 Single view of the abdomen obtained Findings: NG tube remains in good position. No mass or free air identified on this single view. Bowel gas pattern is nonspecific. IMPRESSION: No change. NG tube in good position
--- NOTE | 2017-02-15 21:47 | Diagnostic Imaging Report ---
Indication: Dyspnea Comparison: 02/12/2017 A single view chest radiograph was obtained. Findings: Basilar opacities are present with low lung volumes and cardiomegaly. Findings are not dissimilar from the last exam. NG tube again noted. IMPRESSION: Basilar and perihilar parenchymal infiltrates versus pulmonary edema. Please correlate clinically
--- NOTE | 2017-02-15 21:49 | Cardiology Report ---
APPROVED REPORT EXAM: Two-dimensional and M-mode echocardiogram with Doppler and color Doppler. INDICATION Congestive Heart Failure M-Mode DIMENSIONS IVSd1.1 (0.7-1.1cm)Left Atrium (MM)3.4 (1.6-4.0cm) LVDd2.9 (3.5-5.6cm)Aortic Root2.9 (2.0-3.7cm) PWd1.0 (0.7-1.1cm)Aortic Cusp Exc.1.7 (1.5-2.0cm) LVDs2.1 (2.5-4.0cm) PWs1.3 cm Normal left ventricular chamber size, systolic function and wall motion. Left ventricular ejection fraction estimated to be 55 %. Borderline left ventricular hypertrophy. Possible moderate pleural effusion. All other cardiac chamber sizes are within normal limits. Left atrial size at upper limits of normal. Mild focal aortic valve sclerosis with adequate cusp excursion. Thickened mitral valve leaflets with normal excursion. Mitral annulus and aortic root calcification. Pulmonic valve not well visualized. Normal tricuspid valve structure. IVC at normal size with physiologic collapse. A color flow and spectral Doppler study was performed and revealed: Trace aortic regurgitation. No mitral regurgitation. Mitral inflow indicates normal left ventricular diastolic function. Trace tricuspid regurgitation. Tricuspid systolic velocities suggests peak right ventricular systolic pressure of 27 mmHg. No pulmonic regurgitation present.
[2017-02-16] VITALS: BP 117/66
[2017-02-16] MEDS: Albuterol/Ipratropium 3ml neb HHN SCH ×7 (00:15→23:55)
[2017-02-16] MEDS: NovoLOG Insulin Flexpen SUBQ SCH ×5 (00:20→23:39)
[2017-02-16 04:00] VITALS: BP 130/67
[2017-02-16] MEDS: Piperacillin/Tazobactam 3.375 GM in NS 110 ML IVPB SCH ×3 (06:30→21:23)
[2017-02-16 07:38] LABS: ANION GAP 8 mmol/L (5-15); BLOOD UREA NITROGEN 10 mg/dL (7-18); CALCIUM 7.3 MG/DL (8.5-10.1); CARBON DIOXIDE 25 MMOL/L (21-32); CHLORIDE 112 MMOL/L (98-107); CREATININE 0.7 MG/DL (0.55-1.30); POTASSIUM 3.3 MMOL/L (3.5-5.1); SODIUM 145 MMOL/L (136-145)
[2017-02-16 08:00] VITALS: BP 142/79
[2017-02-16] MEDS: Pantoprazole Inj IVP SCH (09:11)
--- NOTE | 2017-02-16 10:06 | Pulmonology Progress Note ---
Assessment/Plan Assessment/Plan 1. Suspect congestive heart failure. ECHO noted; has normal LVEF 2. Hypoxemia. 3. Altered mental status. 4. Pneumonia. 5. History of diabetes. 6. Gastroesophageal reflux disease. 7. Sepsis. 8. Enterococcus faecalis bacteremia. PLAN CXR shows bilateral infiltrates; will add Lasix troponin negative this am 2D echo noted Check lower extremity Duplex to rule out DVT pending Nebulizer treatments. Titrate O2 for saturation greater than 90%. NPO and NG tube. Continue broad-spectrum antibiotics Subjective Interval Events: More awake; edematous upper extremeties Constitutional: Reports: no symptoms HEENT: Repors: no symptoms Respiratory: Reports: dry cough, shortness of breath Cardiovascular: Reports: no symptoms Gastrointestinal/Abdominal: Reports: no symptoms Allergies: Coded Allergies: UNABLE TO ASSESS (Unverified , 02/05/17) Objective Last 24 Hour Vital Signs Date Time Temp Pulse Resp B/P (MAP) Pulse Ox O2 Delivery O2 Flow Rate FiO2 02/16/17 08:15 79 20 99 Venturi Mask 10.0 45 02/16/17 08:14 98 Venturi Mask 10.0 45 02/16/17 08:14 Venturi Mask 10.0 45 02/16/17 08:07 75 20 99 Venturi Mask 12.0 50 02/16/17 08:00 97.5 75 21 142/79 97 02/16/17 04:00 98.1 75 18 130/67 98 Venturi Mask 02/16/17 03:28 73 20 99 Venturi Mask 12.0 50 02/16/17 03:20 72 18 97 Venturi Mask 12.0 50 02/16/17 00:00 97.8 78 20 117/66 97 Venturi Mask 02/15/17 23:14 79 18 99 Venturi Mask 12.0 50 02/15/17 23:06 71 22 97 Venturi Mask 12.0 50 02/15/17 20:00 97.0 72 18 135/70 97 Venturi Mask 02/15/17 19:22 78 16 99 Venturi Mask 12.0 50 02/15/17 19:07 78 18 97 Venturi Mask 12.0 50 02/15/17 19:04 Venturi Mask 12.0 50 02/15/17 19:04 97 Venturi Mask 12.0 50 02/15/17 16:30 98.0 69 18 129/68 100 Venturi Mask 1/8/18 15:14 74 18 97 Venturi Mask 12.0 50 02/15/17 15:13 71 16 97 Venturi Mask 12.0 50 02/15/17 12:00 97.0 76 20 125/65 100 02/15/17 11:33 69 20 97 Venturi Mask 12.0 50 02/15/17 11:21 66 16 98 Venturi Mask 12.0 50 Intake and Output 02/15/17 02/16/17 19:00 07:00 Intake Total 360 ml 680.0 ml Output Total 300 ml 450 ml Balance 60 ml 230.0 ml IV Total 350.0 ml Tube Feeding 360 ml 330 ml Output Urine Total 300 ml 450 ml # Bowel Movements 1 General Appearance: no acute distress HEENT: normocephalic Respiratory/Chest: chest wall non-tender, decreased breath sounds, crackles/ rales Cardiovascular: normal peripheral pulses, normal rate, regular rhythm Abdomen: normal bowel sounds, soft, non tender Microbiology Date/Time Source Procedure Growth Status 02/13/17 11:50 Nasal Aspirate MRSA Culture - Final NO METHICILLIN RESISTANT STAPH AUREUS... Complete 02/13/17 11:50 Sputum Gram Stain - Final Resulted 02/13/17 11:50 Sputum Culture - Preliminary YEAST YEAST#2 Resulted Laboratory Tests 02/15/17 19:55: White Blood Count 8.0, Red Blood Count 3.39L, Hemoglobin 10.7L, Hematocrit 33.3L , Mean Corpuscular Volume 98, Mean Corpuscular Hemoglobin 31.6H, Mean Corpuscular Hemoglobin Concent 32.1, Red Cell Distribution Width 11.6, Platelet Count 151, Mean Platelet Volume 9.7, Neutrophils (%) (Auto) 81.8H, Lymphocytes ( %) (Auto) 11.2L, Monocytes (%) (Auto) 4.2, Eosinophils (%) (Auto) 1.9, Basophils (%) (Auto) 0.9, Sodium Level 147H, Potassium Level 3.2L, Chloride Level 113H, Carbon Dioxide Level 27, Anion Gap 7, Blood Urea Nitrogen 12, Creatinine 0.8, Estimat Glomerular Filtration Rate , Glucose Level 168H, Calcium Level 7.2L, Vancomycin Level Trough 8.9 02/16/17 05:40: Sodium Level 145, Potassium Level 3.3L, Chloride Level 112H, Carbon Dioxide Level 25, Anion Gap 8, Blood Urea Nitrogen 10, Creatinine 0.7, Estimat Glomerular Filtration Rate , Glucose Level 130H, Calcium Level 7.3L Current Medications Medications (Trade) Dose Ordered Sig/Prashant Route PRN Reason Start Time Stop Time Status Last Admin Dose Admin Albuterol/ Ipratropium (Albuterol/ Ipratropium) 3 ml Q4HRT HHN 02/13/17 19:00 02/18/17 18:59 02/16/17 08:06 Dextrose (Dextrose 50%) STAT PRN IV Hypoglycemia 02/12/17 08:15 03/07/17 08:04 Insulin Aspart (NovoLOG) Q6HR SUBQ 02/11/17 12:00 03/07/17 16:29 02/16/17 06:29 Insulin Detemir (Levemir) 12 units BEDTIME SUBQ 02/14/17 21:00 03/16/17 20:59 02/15/17 21:11 Metoclopramide HCl (Reglan) 10 mg Q8H PRN GT Nausea & Vomiting 02/13/17 15:45 03/15/17 15:44 Pantoprazole (Protonix) 40 mg DAILY IVP 02/13/17 15:45 03/15/17 15:44 02/16/17 09:11 Piperacillin Sod/ Tazobactam Sod 3.375 gm/Sodium Chloride 110 ml @ 27.5 mls/hr Q8HR IVPB 02/12/17 22:00 02/19/17 21:59 02/16/17 06:30 Potassium Chloride 30 meq/ Dextrose 1,015 ml @ 60 mls/hr [id number] IV 02/14/17 14:00 03/16/17 13:59 02/15/17 21:10 Vancomycin HCl (Vanco rx to dose) 1 ea DAILY PRN MISC Per rx protocol 02/12/17 16:15 03/14/17 16:14 Vancomycin HCl/ Dextrose 250 ml @ 166.667 mls/hr Q24H IVPB 02/16/17 18:00 02/21/17 17:59 Ace Bueno MD Feb 16, 2017 10:06
[2017-02-16 12:00] VITALS: BP 117/69
[2017-02-16 16:00] VITALS: BP 126/72
[2017-02-16] MEDS: Vancomycin 1250mg/D5W 250ml IVPB SCH (18:14)
--- NOTE | 2017-02-16 19:31 | General Progress Note ---
Assessment/Plan Problem List: (1) Severe sepsis ICD Codes: A41.9 - Sepsis, unspecified organism; R65.20 - Severe sepsis without septic shock SNOMED: 52723933 (2) Dehydration ICD Codes: E86.0 - Dehydration SNOMED: 96452103 (3) Hydronephrosis ICD Codes: N13.30 - Unspecified hydronephrosis SNOMED: 89213481 (4) Uremia ICD Codes: N19 - Unspecified kidney failure SNOMED: 59146411 (5) Acute kidney injury ICD Codes: N17.9 - Acute kidney failure, unspecified SNOMED: 36952131 (6) Mass of right ovary ICD Codes: N83.9 - Noninflammatory disorder of ovary, fallopian tube and broad ligament, unspecified SNOMED: 668507548 (7) Altered mental status ICD Codes: R41.82 - Altered mental status, unspecified SNOMED: 485322139 (8) Hypernatremia ICD Codes: E87.0 - Hyperosmolality and hypernatremia SNOMED: 02597219 (9) Thrombocytopenia ICD Codes: D69.6 - Thrombocytopenia, unspecified SNOMED: 509594805 (10) Aspiration pneumonia ICD Codes: J69.0 - Pneumonitis due to inhalation of food and vomit SNOMED: 025873462 Assessment/Plan remains confused, ct brain no acute cva, hydrate,rx sepsis, , levemir, ng feed , ampicillen for enterococcal sepsis hypotonic fluis+water,hit for thrombocytopenia 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, now asp pneumonia, broaden atb, hhn,high residual 02/13 and npo,restart feed 02/14 monitor glu low Sat on high flow oxygen, tolerates feed nowdoing poorly bioethics consult Subjective ROS Limited/Unobtainable: Yes Allergies: Coded Allergies: UNABLE TO ASSESS (Unverified , 02/05/17) Subjective confused pulled out ng Objective Last 24 Hour Vital Signs Date Time Temp Pulse Resp B/P (MAP) Pulse Ox O2 Delivery O2 Flow Rate FiO2 02/16/17 16:00 96.8 79 21 126/72 96 02/16/17 15:46 80 18 99 Venturi Mask 10.0 45 02/16/17 15:34 78 18 97 Venturi Mask 10.0 45 02/16/17 12:00 96.8 79 20 117/69 96 02/16/17 11:26 79 18 99 Venturi Mask 10.0 45 02/16/17 11:18 77 18 98 Venturi Mask 10.0 45 02/16/17 08:15 79 20 99 Venturi Mask 10.0 45 02/16/17 08:14 98 Venturi Mask 10.0 45 02/16/17 08:14 Venturi Mask 10.0 45 02/16/17 08:07 75 20 99 Venturi Mask 12.0 50 02/16/17 08:00 97.5 75 21 142/79 97 02/16/17 04:00 98.1 75 18 130/67 98 Venturi Mask 02/16/17 03:28 73 20 99 Venturi Mask 12.0 50 02/16/17 03:20 72 18 97 Venturi Mask 12.0 50 02/16/17 00:00 97.8 78 20 117/66 97 Venturi Mask 02/15/17 23:14 79 18 99 Venturi Mask 12.0 50 02/15/17 23:06 71 22 97 Venturi Mask 12.0 50 02/15/17 20:00 97.0 72 18 135/70 97 Venturi Mask Intake and Output 02/15/17 02/16/17 19:00 07:00 Intake Total 360 ml 680.0 ml Output Total 300 ml 450 ml Balance 60 ml 230.0 ml IV Total 350.0 ml Tube Feeding 360 ml 330 ml Output Urine Total 300 ml 450 ml # Bowel Movements 1 Laboratory Tests 02/15/17 19:55: White Blood Count 8.0, Red Blood Count 3.39L, Hemoglobin 10.7L, Hematocrit 33.3L , Mean Corpuscular Volume 98, Mean Corpuscular Hemoglobin 31.6H, Mean Corpuscular Hemoglobin Concent 32.1, Red Cell Distribution Width 11.6, Platelet Count 151, Mean Platelet Volume 9.7, Neutrophils (%) (Auto) 81.8H, Lymphocytes ( %) (Auto) 11.2L, Monocytes (%) (Auto) 4.2, Eosinophils (%) (Auto) 1.9, Basophils (%) (Auto) 0.9, Sodium Level 147H, Potassium Level 3.2L, Chloride Level 113H, Carbon Dioxide Level 27, Anion Gap 7, Blood Urea Nitrogen 12, Creatinine 0.8, Estimat Glomerular Filtration Rate , Glucose Level 168H, Calcium Level 7.2L, Vancomycin Level Trough 8.9 02/16/17 05:40: Sodium Level 145, Potassium Level 3.3L, Chloride Level 112H, Carbon Dioxide Level 25, Anion Gap 8, Blood Urea Nitrogen 10, Creatinine 0.7, Estimat Glomerular Filtration Rate , Glucose Level 130H, Calcium Level 7.3L Height (Feet): 5 Height (Inches): 2.00 Weight (Pounds): 150 General Appearance: confused, mild distress EENT: normal ENT inspection Neck: normal alignment Cardiovascular: normal rate, regular rhythm Respiratory/Chest: rhonchi - bilaterally Abdomen: non tender, soft Extremities: no calf tenderness Edema: moderate edema Neurologic: unresponsive BENOIT GIORDANO Feb 16, 2017 19:31
[2017-02-16 20:00] VITALS: BP 123/73
[2017-02-16] MEDS: Levemir Flexpen SUBQ SCH (21:18)
[2017-02-17] VITALS: BP_SYST 119; BP_SYST 152; BP_DIAS 67; BP_DIAS 71
[2017-02-17] MEDS: Albuterol/Ipratropium 3ml neb HHN SCH ×6 (03:33→22:59)
[2017-02-17 04:10] VITALS: BP 135/76
[2017-02-17] MEDS: NovoLOG Insulin Flexpen SUBQ SCH ×3 (05:23→17:46)
[2017-02-17] MEDS: Piperacillin/Tazobactam 3.375 GM in NS 110 ML IVPB SCH ×3 (05:23→22:08)
[2017-02-17 08:15] VITALS: BP 127/67
--- NOTE | 2017-02-17 08:31 | Pulmonology Progress Note ---
Assessment/Plan Assessment/Plan 1. Suspect congestive heart failure. ECHO noted; has normal LVEF 2. Hypoxemia. 3. Altered mental status. 4. Pneumonia. 5. History of diabetes. 6. Gastroesophageal reflux disease. 7. Sepsis. 8. Enterococcus faecalis bacteremia. PLAN CXR shows bilateral infiltrates; will continue Lasix; renal function stable 2D echo noted Nebulizer treatments. Titrate O2 for saturation greater than 90%. NPO and NG tube. Continue broad-spectrum antibiotics Subjective Interval Events: Looking better; on O2 via face mask; net I/O is -2Liters Constitutional: Reports: no symptoms HEENT: Repors: no symptoms Respiratory: Reports: no symptoms Cardiovascular: Reports: no symptoms Gastrointestinal/Abdominal: Reports: no symptoms Genitourinary: Reports: no symptoms Allergies: Coded Allergies: UNABLE TO ASSESS (Unverified , 02/05/17) Objective Last 24 Hour Vital Signs Date Time Temp Pulse Resp B/P (MAP) Pulse Ox O2 Delivery O2 Flow Rate FiO2 02/17/17 07:22 74 20 99 Venturi Mask 8.0 40 02/17/17 07:13 72 20 99 Venturi Mask 10.0 45 02/17/17 07:13 Venturi Mask 10.0 45 02/17/17 07:13 100 Venturi Mask 10.0 45 02/17/17 04:10 97.9 70 20 135/76 96 Venturi Mask 02/17/17 03:38 85 18 99 Venturi Mask 10.0 45 02/17/17 03:34 68 18 98 Venturi Mask 10.0 45 02/17/17 00:03 75 18 99 Venturi Mask 10.0 45 02/17/17 00:00 91 Venturi Mask 9.0 02/17/17 00:00 97.7 72 18 119/67 91 02/16/17 23:54 73 18 96 Venturi Mask 10.0 45 02/16/17 20:16 95 Venturi Mask 10.0 45 02/16/17 20:16 Venturi Mask 10.0 45 02/16/17 20:16 71 18 95 Venturi Mask 10.0 45 02/16/17 20:00 98.0 71 18 123/73 99 02/16/17 20:00 99 Venturi Mask 10.0 02/16/17 16:00 96.8 79 21 126/72 96 02/16/17 15:46 80 18 99 Venturi Mask 10.0 45 02/16/17 15:34 78 18 97 Venturi Mask 10.0 45 02/16/17 12:00 96.8 79 20 117/69 96 02/16/17 11:26 79 18 99 Venturi Mask 10.0 45 02/16/17 11:18 77 18 98 Venturi Mask 10.0 45 Intake and Output 02/16/17 02/17/17 19:00 07:00 Intake Total 30 ml 747.500 ml Output Total 2700 ml Balance -2670 ml 747.500 ml IV Total 387.500 ml Tube Feeding 30 ml 360 ml Output Urine Total 2700 ml General Appearance: no acute distress HEENT: normocephalic Respiratory/Chest: chest wall non-tender, decreased breath sounds Cardiovascular: normal peripheral pulses, normal rate Abdomen: normal bowel sounds Current Medications Medications (Trade) Dose Ordered Sig/Prashant Route PRN Reason Start Time Stop Time Status Last Admin Dose Admin Albuterol/ Ipratropium (Albuterol/ Ipratropium) 3 ml Q4HRT HHN 02/13/17 19:00 02/18/17 18:59 02/17/17 07:13 Dextrose (Dextrose 50%) STAT PRN IV Hypoglycemia 02/12/17 08:15 03/07/17 08:04 Furosemide (Lasix) 40 mg DAILY IV 02/16/17 11:00 03/18/17 10:59 02/16/17 10:51 Insulin Aspart (NovoLOG) Q6HR SUBQ 02/11/17 12:00 03/07/17 16:29 02/16/17 23:39 Insulin Detemir (Levemir) 12 units BEDTIME SUBQ 02/14/17 21:00 03/16/17 20:59 02/16/17 21:18 Metoclopramide HCl (Reglan) 10 mg Q8H PRN GT Nausea & Vomiting 02/13/17 15:45 03/15/17 15:44 Pantoprazole (Protonix) 40 mg DAILY IVP 02/13/17 15:45 03/15/17 15:44 02/16/17 09:11 Piperacillin Sod/ Tazobactam Sod 3.375 gm/Sodium Chloride 110 ml @ 27.5 mls/hr Q8HR IVPB 02/12/17 22:00 02/19/17 21:59 02/17/17 05:23 Vancomycin HCl (Vanco rx to dose) 1 ea DAILY PRN MISC Per rx protocol 02/12/17 16:15 03/14/17 16:14 Vancomycin HCl/ Dextrose 250 ml @ 166.667 mls/hr Q24H IVPB 02/16/17 18:00 02/21/17 17:59 02/16/17 18:14 Ace Bueno MD Feb 17, 2017 08:31
--- NOTE | 2017-02-17 09:01 | General Progress Note ---
Assessment/Plan Problem List: (1) Severe sepsis ICD Codes: A41.9 - Sepsis, unspecified organism; R65.20 - Severe sepsis without septic shock SNOMED: 36378271 (2) Dehydration ICD Codes: E86.0 - Dehydration SNOMED: 42441337 (3) Hydronephrosis ICD Codes: N13.30 - Unspecified hydronephrosis SNOMED: 47531418 (4) Uremia ICD Codes: N19 - Unspecified kidney failure SNOMED: 18515215 (5) Acute kidney injury ICD Codes: N17.9 - Acute kidney failure, unspecified SNOMED: 48388502 (6) Mass of right ovary ICD Codes: N83.9 - Noninflammatory disorder of ovary, fallopian tube and broad ligament, unspecified SNOMED: 686872313 (7) Altered mental status ICD Codes: R41.82 - Altered mental status, unspecified SNOMED: 706669764 (8) Hypernatremia ICD Codes: E87.0 - Hyperosmolality and hypernatremia SNOMED: 24835222 (9) Thrombocytopenia ICD Codes: D69.6 - Thrombocytopenia, unspecified SNOMED: 903924004 (10) Aspiration pneumonia ICD Codes: J69.0 - Pneumonitis due to inhalation of food and vomit SNOMED: 420904509 Assessment/Plan remains confused, ct brain no acute cva, hydrate,rx sepsis, , levemir, ng feed , ampicillen for enterococcal sepsis hypotonic fluis+water,hit for thrombocytopenia reduce iv 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, now asp pneumonia, broaden atb, hhn,high residual 02/13 and npo,restart feed 02/14 monitor glu low Sat on high flow oxygen, tolerates feed nowdoing poorly bioethics consult Subjective ROS Limited/Unobtainable: Yes Allergies: Coded Allergies: UNABLE TO ASSESS (Unverified , 02/05/17) Subjective confused pulled out ng Objective Last 24 Hour Vital Signs Date Time Temp Pulse Resp B/P (MAP) Pulse Ox O2 Delivery O2 Flow Rate FiO2 02/17/17 08:15 97.9 79 21 127/67 96 02/17/17 07:22 74 20 99 Venturi Mask 8.0 40 02/17/17 07:13 72 20 99 Venturi Mask 10.0 45 02/17/17 07:13 Venturi Mask 10.0 45 02/17/17 07:13 100 Venturi Mask 10.0 45 02/17/17 04:10 97.9 70 20 135/76 96 Venturi Mask 02/17/17 03:38 85 18 99 Venturi Mask 10.0 45 02/17/17 03:34 68 18 98 Venturi Mask 10.0 45 02/17/17 00:03 75 18 99 Venturi Mask 10.0 45 02/17/17 00:00 91 Venturi Mask 9.0 02/17/17 00:00 97.7 72 18 119/67 91 02/16/17 23:54 73 18 96 Venturi Mask 10.0 45 02/16/17 20:16 95 Venturi Mask 10.0 45 02/16/17 20:16 Venturi Mask 10.0 45 02/16/17 20:16 71 18 95 Venturi Mask 10.0 45 02/16/17 20:00 98.0 71 18 123/73 99 02/16/17 20:00 99 Venturi Mask 10.0 02/16/17 16:00 96.8 79 21 126/72 96 02/16/17 15:46 80 18 99 Venturi Mask 10.0 45 02/16/17 15:34 78 18 97 Venturi Mask 10.0 45 02/16/17 12:00 96.8 79 20 117/69 96 02/16/17 11:26 79 18 99 Venturi Mask 10.0 45 02/16/17 11:18 77 18 98 Venturi Mask 10.0 45 Intake and Output 02/16/17 02/17/17 19:00 07:00 Intake Total 30 ml 747.500 ml Output Total 2700 ml Balance -2670 ml 747.500 ml IV Total 387.500 ml Tube Feeding 30 ml 360 ml Output Urine Total 2700 ml Height (Feet): 5 Height (Inches): 2.00 Weight (Pounds): 146 General Appearance: mild distress EENT: normal ENT inspection Neck: normal alignment Cardiovascular: regular rhythm Respiratory/Chest: rhonchi - bilaterally Abdomen: non tender Edema: moderate edema Neurologic: unresponsive BENOIT GIORDANO Feb 17, 2017 09:01
[2017-02-17] MEDS: Pantoprazole Inj IVP SCH (09:09)
[2017-02-17 11:54] VITALS: BP 110/60
--- NOTE | 2017-02-17 14:44 | General Progress Note ---
Progress Note Progress Note Bioethics Committee The Committee met at the request of the attending ohysician regarding whether a G tube for feeding would be appropriate. She is unrepresented however the Committee obtained information from ." Ashanti who has know the patient for over 20 years and considers herself a "sister-in law." Ashanti states that Erika has been alcoholic in the past, is really more like 53 years old and that she has been taking Slovenian classes even in the last year. She states that the patient has a son and daughter who live in [place]. The patient speaks but not intelligibly to [place]ian speakers. Under the circumstances it seems reasonable to support her with G tube feedings or NG feeding until she is able to eat without risk of aspiration. It also seems reasonable to do diagnostic studies including biopsy to assess the etiology of her pelvic mass. The Committee will be available to reconsult should circumstances warrant. Alfonso Maurer MD Material Processor, Bioethics Committee ALFONSO MAURER Feb 17, 2017 14:44
[2017-02-17] MEDS ORDERED: Tubing IV Secondary IV ONE (15:27)
[2017-02-17 16:00] VITALS: BP 130/75
[2017-02-17] MEDS: Vancomycin 1250mg/D5W 250ml IVPB SCH (17:46)
[2017-02-17 20:21] VITALS: BP 128/80
[2017-02-17] MEDS: Levemir Flexpen SUBQ SCH (21:42)
[2017-02-18] MEDS: NovoLOG Insulin Flexpen SUBQ SCH ×4 (00:03→18:00)
[2017-02-18 00:11] VITALS: BP 127/76
[2017-02-18] MEDS: Albuterol/Ipratropium 3ml neb HHN SCH ×4 (03:45→15:07)
[2017-02-18 04:18] VITALS: BP 134/75
[2017-02-18] MEDS: Piperacillin/Tazobactam 3.375 GM in NS 110 ML IVPB SCH ×3 (05:33→21:15)
[2017-02-18 07:36] LABS: BASOPHILS % (AUTO) 0.7 % (0.0-2.0); HEMATOCRIT 33.3 % (37.0-47.0); HEMOGLOBIN 11.4 G/DL (12.0-16.0); LYMPHOCYTES % (AUTO) 12.9 % (20.0-45.0); MEAN CORPUSCULAR VOLUME 97 FL (80-99); MONOCYTES % (AUTO) 6.4 % (1.0-10.0); NEUTROPHILS % (AUTO) 77.1 % (45.0-75.0); PLATELET COUNT 240 K/UL (150-450); RED BLOOD COUNT 3.43 M/UL (4.20-5.40); RED CELL DISTRIBUTION WIDTH 12.2 % (11.6-14.8); WHITE BLOOD COUNT 7.9 K/UL (4.8-10.8)
[2017-02-18 07:57] LABS: ANION GAP 7 mmol/L (5-15); BLOOD UREA NITROGEN 9 mg/dL (7-18); CALCIUM 8.6 MG/DL (8.5-10.1); CARBON DIOXIDE 31 MMOL/L (21-32); CHLORIDE 109 MMOL/L (98-107); CREATININE 0.8 MG/DL (0.55-1.30); POTASSIUM 2.9 MMOL/L (3.5-5.1); SODIUM 147 MMOL/L (136-145)
[2017-02-18 08:11] VITALS: BP 131/77
[2017-02-18] MEDS: Pantoprazole Inj IVP SCH (08:54)
--- NOTE | 2017-02-18 09:21 | General Progress Note ---
Assessment/Plan Problem List: (1) Severe sepsis ICD Codes: A41.9 - Sepsis, unspecified organism; R65.20 - Severe sepsis without septic shock SNOMED: 50797414 (2) Dehydration ICD Codes: E86.0 - Dehydration SNOMED: 92130900 (3) Hydronephrosis ICD Codes: N13.30 - Unspecified hydronephrosis SNOMED: 07054971 (4) Uremia ICD Codes: N19 - Unspecified kidney failure SNOMED: 88546372 (5) Acute kidney injury ICD Codes: N17.9 - Acute kidney failure, unspecified SNOMED: 30514916 (6) Mass of right ovary ICD Codes: N83.9 - Noninflammatory disorder of ovary, fallopian tube and broad ligament, unspecified SNOMED: 690931680 (7) Altered mental status ICD Codes: R41.82 - Altered mental status, unspecified SNOMED: 359953897 (8) Hypernatremia ICD Codes: E87.0 - Hyperosmolality and hypernatremia SNOMED: 90489427 (9) Thrombocytopenia ICD Codes: D69.6 - Thrombocytopenia, unspecified SNOMED: 138634053 (10) Aspiration pneumonia ICD Codes: J69.0 - Pneumonitis due to inhalation of food and vomit SNOMED: 093097291 Assessment/Plan remains confused, ct brain no acute cva, hydrate,rx sepsis, , levemir, ng feed , ampicillen for enterococcal sepsis hypotonic fluis+water,hit for thrombocytopenia reduce iv 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, now asp pneumonia, broaden atb, hhn,high residual 02/13 and npo,restart feed 02/14 monitor glu low Sat on high flow oxygen, tolerates feed nowdoing poorly bioethics consult, reeval reduce insulin,kcl Subjective ROS Limited/Unobtainable: Yes Allergies: Coded Allergies: UNABLE TO ASSESS (Unverified , 02/05/17) Subjective confused pulled out ng Objective Last 24 Hour Vital Signs Date Time Temp Pulse Resp B/P (MAP) Pulse Ox O2 Delivery O2 Flow Rate FiO2 02/18/17 08:11 98.7 70 20 131/77 95 Room Air 02/18/17 07:24 77 18 99 Room Air 02/18/17 06:48 Venturi Mask 8.0 40 02/18/17 06:48 68 18 97 Room Air 02/18/17 06:44 98 Room Air 21 02/18/17 04:18 97.2 66 17 134/75 100 02/18/17 03:52 66 18 100 Room Air 02/18/17 03:45 68 18 99 Room Air 02/18/17 00:11 92.1 76 18 127/76 100 02/17/17 23:05 28 02/17/17 23:05 75 18 99 Nasal Cannula 2.0 28 02/17/17 22:59 72 18 99 Venturi Mask 8.0 40 02/17/17 20:21 98.0 74 17 128/80 99 02/17/17 20:03 72 18 100 Venturi Mask 8.0 40 02/17/17 20:02 40 02/17/17 19:58 100 Venturi Mask 8.0 40 02/17/17 19:57 Venturi Mask 8.0 40 02/17/17 19:56 74 17 95 Venturi Mask 8.0 40 02/17/17 16:00 40 02/17/17 16:00 97.7 78 18 130/75 100 02/17/17 16:00 70 19 98 Venturi Mask 8.0 40 02/17/17 15:57 73 17 98 Venturi Mask 8.0 40 02/17/17 11:54 98.7 69 18 110/60 99 Nasal Cannula 8.0 02/17/17 11:10 73 24 98 Venturi Mask 8.0 40 02/17/17 11:00 71 18 98 Venturi Mask 8.0 40 Intake and Output 02/17/17 02/18/17 19:00 07:00 Intake Total 1319.167 ml 1053.333 ml Output Total 2000 ml 600 ml Balance -680.833 ml 453.333 ml Free Water 600 ml 450 ml IV Total 359.167 ml 303.333 ml Tube Feeding 360 ml 300 ml Output Urine Total 2000 ml 600 ml # Bowel Movements 2 Laboratory Tests 02/18/17 06:35: White Blood Count 7.9, Red Blood Count 3.43L, Hemoglobin 11.4L, Hematocrit 33.3L , Mean Corpuscular Volume 97, Mean Corpuscular Hemoglobin 33.1H, Mean Corpuscular Hemoglobin Concent 34.1, Red Cell Distribution Width 12.2, Platelet Count 240, Mean Platelet Volume 8.8, Neutrophils (%) (Auto) 77.1H, Lymphocytes ( %) (Auto) 12.9L, Monocytes (%) (Auto) 6.4, Eosinophils (%) (Auto) 3.0, Basophils (%) (Auto) 0.7, Sodium Level 147H, Potassium Level 2.9L, Chloride Level 109H, Carbon Dioxide Level 31, Anion Gap 7, Blood Urea Nitrogen 9, Creatinine 0.8, Estimat Glomerular Filtration Rate , Glucose Level 108H, Calcium Level 8.6 Height (Feet): 5 Height (Inches): 2.00 Weight (Pounds): 130 General Appearance: no apparent distress, confused EENT: normal ENT inspection Neck: normal alignment Cardiovascular: normal rate Respiratory/Chest: rhonchi - bilaterally Abdomen: non tender, soft Edema: moderate edema Neurologic: disoriented BENOIT GIORDANO Feb 18, 2017 09:21
[2017-02-18 11:50] VITALS: BP 117/69
--- NOTE | 2017-02-18 14:03 | Pulmonology Progress Note ---
Assessment/Plan Assessment/Plan 1. Suspect congestive heart failure. ECHO noted; has normal LVEF 2. Hypoxemia. 3. Altered mental status. 4. Pneumonia. 5. History of diabetes. 6. Gastroesophageal reflux disease. 7. Sepsis. 8. Enterococcus faecalis bacteremia. PLAN CXR shows bilateral infiltrates; no longer on Lasix; renal function stable 2D echo noted Nebulizer treatments. Titrate O2 for saturation greater than 90%. NPO and NG tube. Continue broad-spectrum antibiotics Subjective Interval Events: unchanged. Remains on face mask oxygen. Constitutional: Reports: no symptoms HEENT: Repors: no symptoms Respiratory: Reports: no symptoms Cardiovascular: Reports: no symptoms Gastrointestinal/Abdominal: Reports: no symptoms Allergies: Coded Allergies: UNABLE TO ASSESS (Unverified , 02/05/17) Objective Last 24 Hour Vital Signs Date Time Temp Pulse Resp B/P (MAP) Pulse Ox O2 Delivery O2 Flow Rate FiO2 02/18/17 11:50 97.8 73 21 117/69 97 Room Air 02/18/17 11:21 74 18 98 Room Air 02/18/17 11:10 68 18 98 Room Air 02/18/17 08:11 98.7 70 20 131/77 95 Room Air 02/18/17 07:24 77 18 99 Room Air 02/18/17 06:48 Venturi Mask 8.0 40 02/18/17 06:48 68 18 97 Room Air 02/18/17 06:44 98 Room Air 21 02/18/17 04:18 97.2 66 17 134/75 100 02/18/17 03:52 66 18 100 Room Air 02/18/17 03:45 68 18 99 Room Air 02/18/17 00:11 92.1 76 18 127/76 100 02/17/17 23:05 28 02/17/17 23:05 75 18 99 Nasal Cannula 2.0 28 02/17/17 22:59 72 18 99 Venturi Mask 8.0 40 02/17/17 20:21 98.0 74 17 128/80 99 02/17/17 20:03 72 18 100 Venturi Mask 8.0 40 02/17/17 20:02 40 02/17/17 19:58 100 Venturi Mask 8.0 40 02/17/17 19:57 Venturi Mask 8.0 40 02/17/17 19:56 74 17 95 Venturi Mask 8.0 40 02/17/17 16:00 40 02/17/17 16:00 97.7 78 18 130/75 100 02/17/17 16:00 70 19 98 Venturi Mask 8.0 40 02/17/17 15:57 73 17 98 Venturi Mask 8.0 40 Intake and Output 02/17/17 02/18/17 19:00 07:00 Intake Total 1319.167 ml 1053.333 ml Output Total 2000 ml 600 ml Balance -680.833 ml 453.333 ml Free Water 600 ml 450 ml IV Total 359.167 ml 303.333 ml Tube Feeding 360 ml 300 ml Output Urine Total 2000 ml 600 ml # Bowel Movements 2 General Appearance: no acute distress HEENT: normocephalic Respiratory/Chest: chest wall non-tender, decreased breath sounds Cardiovascular: normal peripheral pulses, normal rate Laboratory Tests 02/18/17 06:35: White Blood Count 7.9, Red Blood Count 3.43L, Hemoglobin 11.4L, Hematocrit 33.3L , Mean Corpuscular Volume 97, Mean Corpuscular Hemoglobin 33.1H, Mean Corpuscular Hemoglobin Concent 34.1, Red Cell Distribution Width 12.2, Platelet Count 240, Mean Platelet Volume 8.8, Neutrophils (%) (Auto) 77.1H, Lymphocytes ( %) (Auto) 12.9L, Monocytes (%) (Auto) 6.4, Eosinophils (%) (Auto) 3.0, Basophils (%) (Auto) 0.7, Sodium Level 147H, Potassium Level 2.9L, Chloride Level 109H, Carbon Dioxide Level 31, Anion Gap 7, Blood Urea Nitrogen 9, Creatinine 0.8, Estimat Glomerular Filtration Rate , Glucose Level 108H, Calcium Level 8.6 Current Medications Medications (Trade) Dose Ordered Sig/Prashant Route PRN Reason Start Time Stop Time Status Last Admin Dose Admin Albuterol/ Ipratropium (Albuterol/ Ipratropium) 3 ml Q4HRT HHN 02/13/17 19:00 02/18/17 18:59 02/18/17 11:09 Dextrose (Dextrose 50%) STAT PRN IV Hypoglycemia 02/12/17 08:15 03/07/17 08:04 02/18/17 05:00 Insulin Aspart (NovoLOG) Q6HR SUBQ 02/11/17 12:00 03/07/17 16:29 02/18/17 00:03 Insulin Detemir (Levemir) 8 units BEDTIME SUBQ 02/18/17 21:00 03/20/17 20:59 Metoclopramide HCl (Reglan) 10 mg Q8H PRN GT Nausea & Vomiting 02/13/17 15:45 03/15/17 15:44 Pantoprazole (Protonix) 40 mg DAILY IVP 02/13/17 15:45 03/15/17 15:44 02/18/17 08:54 Piperacillin Sod/ Tazobactam Sod 3.375 gm/Sodium Chloride 110 ml @ 27.5 mls/hr Q8HR IVPB 02/12/17 22:00 02/19/17 21:59 02/18/17 05:33 Potassium Chloride (K-Dur) 40 meq TWICE A DAY ORAL 02/18/17 10:00 03/20/17 09:59 02/18/17 10:34 Vancomycin HCl (Vanco rx to dose) 1 ea DAILY PRN MISC Per rx protocol 02/12/17 16:15 03/14/17 16:14 Vancomycin HCl/ Dextrose 250 ml @ 166.667 mls/hr Q24H IVPB 02/16/17 18:00 02/21/17 17:59 02/17/17 17:46 Ace Bueno MD Feb 18, 2017 14:03
[2017-02-18 15:58] VITALS: BP 98/60
--- NOTE | 2017-02-18 18:04 | GI Initial Consult Note ---
Vee Stock N.PCaroline 02/18/17 1804: History of Present Illness General Date patient seen: Feb 18, 2017 Time patient seen: 17:57 Reason for Hospitalization: Altered Level of Consciousness Referring physician: BENOIT GIORDANO Reason for Consultation: PEG EVALUATION Present Illness HPI Patient is a 70-year-old female brought in by EMS after increased level of consciousness. Patient noted be in increased confusion. She had been making incomprehensible sounds. History is markedly limited by patient's mental status. The patient was reportedly found in her apartment. She has a known past medical history. GI consulted for PEG evaluation. HPI noted above. ROS limited, AMS. Pt seen on floor, awake alert NAD with no active s/sx of N/V/D. ST evaluation reviewed. Bioethics consult reviewed. PCP has agreed to have G-Tube place for patient for quality of life. NGT removed by patient. Labs reviewed, anemia noted. Unknown history of endoscopic / colonoscopies. Allergies: Coded Allergies: UNABLE TO ASSESS (Unverified , 02/05/17) Patient History Limited by: medical condition History Provided By: Medical Record [facility] Narrative Past Medical History Deferred: Pt Cognitively Impaired Review of Systems All Other Systems: limited Physical Exam Vital Signs Date Time Temp Pulse Resp B/P (MAP) Pulse Ox O2 Delivery O2 Flow Rate FiO2 02/14/17 07:49 69 20 Venturi Mask 55 02/14/17 07:50 98 02/14/17 07:51 14.0 02/14/17 08:00 97.3 144/82 Sp02 EP Interpretation: reviewed Labs Laboratory Tests Test 02/18/17 06:35 02/18/17 17:20 White Blood Count 7.9 K/UL (4.8-10.8) Red Blood Count 3.43 M/UL (4.20-5.40) L Hemoglobin 11.4 G/DL (12.0-16.0) L Hematocrit 33.3 % (37.0-47.0) L Mean Corpuscular Volume 97 FL (80-99) Mean Corpuscular Hemoglobin 33.1 PG (27.0-31.0) H Mean Corpuscular Hemoglobin Concent 34.1 G/DL (32.0-36.0) Red Cell Distribution Width 12.2 % (11.6-14.8) Platelet Count 240 K/UL (150-450) Mean Platelet Volume 8.8 FL (6.5-10.1) Neutrophils (%) (Auto) 77.1 % (45.0-75.0) H Lymphocytes (%) (Auto) 12.9 % (20.0-45.0) L Monocytes (%) (Auto) 6.4 % (1.0-10.0) Eosinophils (%) (Auto) 3.0 % (0.0-3.0) Basophils (%) (Auto) 0.7 % (0.0-2.0) Sodium Level 147 MMOL/L (136-145) H Potassium Level 2.9 MMOL/L (3.5-5.1) L Chloride Level 109 MMOL/L (98-107) H Carbon Dioxide Level 31 MMOL/L (21-32) Anion Gap 7 mmol/L (5-15) Blood Urea Nitrogen 9 mg/dL (7-18) Creatinine 0.8 MG/DL (0.55-1.30) Estimat Glomerular Filtration Rate mL/min (>60) Glucose Level 108 MG/DL (74-106) H Calcium Level 8.6 MG/DL (8.5-10.1) Vancomycin Level Trough Pending General Appearance: no apparent distress, alert Head: normocephalic EENT: normal ENT inspection Neck: supple Respiratory: no respiratory distress Cardiovascular: normal rate Gastrointestinal: soft Rectal: deferred Skin: normal inspection, normal color, no rash, warm/dry Lymphatic: normal inspection, no adenopathy Current Medications Current Medications Medications (Trade) Dose Ordered Sig/Prashant Route PRN Reason Start Time Stop Time Status Last Admin Dose Admin Albuterol/ Ipratropium (Albuterol/ Ipratropium) 3 ml Q4HRT HHN 02/13/17 19:00 02/18/17 18:59 02/18/17 15:07 Dextrose 1,000 ml @ 50 mls/hr Q20H IV 02/18/17 17:00 03/20/17 16:59 02/18/17 16:55 Dextrose (Dextrose 50%) STAT PRN IV Hypoglycemia 02/12/17 08:15 03/07/17 08:04 02/18/17 05:00 Insulin Aspart (NovoLOG) Q6HR SUBQ 02/11/17 12:00 03/07/17 16:29 02/18/17 00:03 Insulin Detemir (Levemir) 8 units BEDTIME SUBQ 02/18/17 21:00 03/20/17 20:59 Metoclopramide HCl (Reglan) 10 mg Q8H PRN GT Nausea & Vomiting 02/13/17 15:45 03/15/17 15:44 Pantoprazole (Protonix) 40 mg DAILY IVP 02/13/17 15:45 03/15/17 15:44 02/18/17 08:54 Piperacillin Sod/ Tazobactam Sod 3.375 gm/Sodium Chloride 110 ml @ 27.5 mls/hr Q8HR IVPB 02/12/17 22:00 02/19/17 21:59 02/18/17 15:35 Potassium Chloride (K-Dur) 40 meq TWICE A DAY ORAL 02/18/17 10:00 03/20/17 09:59 02/18/17 10:34 Vancomycin HCl (Vanco rx to dose) 1 ea DAILY PRN MISC Per rx protocol 02/12/17 16:15 03/14/17 16:14 Vancomycin HCl/ Dextrose 250 ml @ 166.667 mls/hr Q24H IVPB 02/16/17 18:00 02/21/17 17:59 02/17/17 17:46 GI: Plan Problems: (1) Dysphagia (2) Dehydration (3) Severe sepsis (4) Altered mental status Plan ST noted reviewed Bioethics notes reviewed PEG scheduled for tomorrow. - NPO + IVFs - hold blood thinners tonight. anemia work up monitor H&H, prn transfusions bowel regime ppi fu labs Discussed with Dr. Waters. Thank you for this patient referral, we will follow. ALINE WATERS 02/22/17 1015: History of Present Illness General Reason for Hospitalization: Altered Level of Consciousness Present Illness Allergies: Coded Allergies: UNABLE TO ASSESS (Unverified , 02/05/17) GI: Plan Plan The patient was seen and examined at bedside and all new and available data was reviewed in the patients chart. I agree with the above findings, impression and plan. (Patient seen earlier today. Signature stamp does not reflect patient encounter time.). - MD Dayami Vaughan,[facility] Feb 18, 2017 18:04 ALINE WATERS Feb 22, 2017 10:15
[2017-02-18 20:00] VITALS: BP 103/68
[2017-02-18] MEDS: Levemir Flexpen SUBQ SCH (21:21)
[2017-02-19] VITALS (11 sets, daily range): BP systolic 103–130; BP diastolic 60–72
[2017-02-19] MEDS ORDERED: Vancomycin 1gm/D5W 275ml IVPB SCH ×2 (02:00)
[2017-02-19] MEDS: Piperacillin/Tazobactam 3.375 GM in NS 110 ML IVPB SCH ×2 (05:50→14:00)
[2017-02-19] MEDS: NovoLOG Insulin Flexpen SUBQ SCH ×4 (06:00→18:00)
--- NOTE | 2017-02-19 07:05 | Anethesia Preoperative Eval ---
Anesthesia Pre-op PMH/ROS General Date of Evaluation: Feb 19, 2017 Time of Evaluation: 07:04 Anesthesiologist: blanca ASA Score: ASA 3 Mallampati Score Class I : Soft palate, uvula, fauces, pillars visible Class II: Soft palate, uvula, fauces visible Class III: Soft palate, base of uvula visible Class IV: Only hard plate visible Mallampati Classification: Class II Surgeon: jimbo Diagnosis: dysphagia Surgical Procedure: egd/peg Anesthesia History: none Allergies: Coded Allergies: UNABLE TO ASSESS (Unverified , 02/05/17) Medications: see eMAR Past Medical History Gastrointestinal/Genitourinary: Reports: other - dysphagia Neurologic/Psychiatric: Reports: other - altered mental status Anesthesia Pre-op Phys. Exam Physician Exam Last Vital Signs Date Time Temp Pulse Resp B/P (MAP) Pulse Ox O2 Delivery O2 Flow Rate FiO2 02/19/17 04:00 97.3 64 20 109/68 100 02/19/17 04:00 Nasal Cannula 2.0 02/18/17 20:39 28 Constitutional: NAD Cardiovascular: RRR Respiratory: CTA Gastrointestinal: S/NT/ND Airway Exam Mallampati Score: Class II MO: limited Neck: decreased rom to lateral rom TMD: 2fb ROM: limited Anesthesia Pre-op A/P Labs Labs Test 02/18/17 06:35 02/18/17 17:20 02/19/17 05:45 White Blood Count 7.9 K/UL (4.8-10.8) 5.1 K/UL (4.8-10.8) Red Blood Count 3.43 M/UL (4.20-5.40) 3.60 M/UL (4.20-5.40) Hemoglobin 11.4 G/DL (12.0-16.0) 12.2 G/DL (12.0-16.0) Hematocrit 33.3 % (37.0-47.0) 34.9 % (37.0-47.0) Mean Corpuscular Volume 97 FL (80-99) 97 FL (80-99) Mean Corpuscular Hemoglobin 33.1 PG (27.0-31.0) 34.0 PG (27.0-31.0) Mean Corpuscular Hemoglobin Concent 34.1 G/DL (32.0-36.0) 35.1 G/DL (32.0-36.0) Red Cell Distribution Width 12.2 % (11.6-14.8) 12.1 % (11.6-14.8) Platelet Count 240 K/UL (150-450) 265 K/UL (150-450) Mean Platelet Volume 8.8 FL (6.5-10.1) 8.8 FL (6.5-10.1) Neutrophils (%) (Auto) 77.1 % (45.0-75.0) 69.9 % (45.0-75.0) Lymphocytes (%) (Auto) 12.9 % (20.0-45.0) 19.1 % (20.0-45.0) Monocytes (%) (Auto) 6.4 % (1.0-10.0) 4.8 % (1.0-10.0) Eosinophils (%) (Auto) 3.0 % (0.0-3.0) 4.9 % (0.0-3.0) Basophils (%) (Auto) 0.7 % (0.0-2.0) 1.2 % (0.0-2.0) Sodium Level 147 MMOL/L (136-145) 145 MMOL/L (136-145) Potassium Level 2.9 MMOL/L (3.5-5.1) 3.5 MMOL/L (3.5-5.1) Chloride Level 109 MMOL/L (98-107) 109 MMOL/L (98-107) Carbon Dioxide Level 31 MMOL/L (21-32) 32 MMOL/L (21-32) Anion Gap 7 mmol/L (5-15) 4 mmol/L (5-15) Blood Urea Nitrogen 9 mg/dL (7-18) 8 mg/dL (7-18) Creatinine 0.8 MG/DL (0.55-1.30) 0.7 MG/DL (0.55-1.30) Estimat Glomerular Filtration Rate mL/min (>60) mL/min (>60) Glucose Level 108 MG/DL (74-106) 85 MG/DL (74-106) Calcium Level 8.6 MG/DL (8.5-10.1) 8.6 MG/DL (8.5-10.1) Vancomycin Level Trough 21.3 ug/mL (5.0-12.0) Prothrombin Time 9.4 SEC (9.30-11.50) Prothromb Time International Ratio 0.9 (0.9-1.1) Risk Assessment & Plan Assessment: [email or web address] Plan: mac Status Change Before Surgery: No Pre-Antibiotics Drug: KP Sommer Feb 19, 2017 07:05
[2017-02-19 07:45] LABS: BASOPHILS % (AUTO) 1.2 % (0.0-2.0); EOSINOPHILS % (AUTO) 4.9 % (0.0-3.0); HEMATOCRIT 34.9 % (37.0-47.0); HEMOGLOBIN 12.2 G/DL (12.0-16.0); LYMPHOCYTES % (AUTO) 19.1 % (20.0-45.0); MEAN CORPUSCULAR VOLUME 97 FL (80-99); MONOCYTES % (AUTO) 4.8 % (1.0-10.0); NEUTROPHILS % (AUTO) 69.9 % (45.0-75.0); PLATELET COUNT 265 K/UL (150-450); RED CELL DISTRIBUTION WIDTH 12.1 % (11.6-14.8); WHITE BLOOD COUNT 5.1 K/UL (4.8-10.8)
[2017-02-19 07:46] LABS: ANION GAP 4 mmol/L (5-15); BLOOD UREA NITROGEN 8 mg/dL (7-18); CALCIUM 8.6 MG/DL (8.5-10.1); CARBON DIOXIDE 32 MMOL/L (21-32); CHLORIDE 109 MMOL/L (98-107); CREATININE 0.7 MG/DL (0.55-1.30); POTASSIUM 3.5 MMOL/L (3.5-5.1); SODIUM 145 MMOL/L (136-145)
[2017-02-19 07:51] LABS: INR 0.9 (0.9-1.1)
[2017-02-19] MEDS ORDERED: Propofol 200mg/20ml IV ONE (08:00)
[2017-02-19] MEDS ORDERED: NS 275ml ONE (08:00)
[2017-02-19] MEDS ORDERED: Lidocaine 1% MPF 10mg/ml 5ml ONE (08:00)
--- NOTE | 2017-02-19 08:55 | General Progress Note ---
Assessment/Plan Problem List: (1) Severe sepsis ICD Codes: A41.9 - Sepsis, unspecified organism; R65.20 - Severe sepsis without septic shock SNOMED: 84492839 (2) Dehydration ICD Codes: E86.0 - Dehydration SNOMED: 98702353 (3) Hydronephrosis ICD Codes: N13.30 - Unspecified hydronephrosis SNOMED: 39955573 (4) Uremia ICD Codes: N19 - Unspecified kidney failure SNOMED: 48719479 (5) Acute kidney injury ICD Codes: N17.9 - Acute kidney failure, unspecified SNOMED: 37711636 (6) Mass of right ovary ICD Codes: N83.9 - Noninflammatory disorder of ovary, fallopian tube and broad ligament, unspecified SNOMED: 020339156 (7) Altered mental status ICD Codes: R41.82 - Altered mental status, unspecified SNOMED: 638383476 (8) Hypernatremia ICD Codes: E87.0 - Hyperosmolality and hypernatremia SNOMED: 84893268 (9) Thrombocytopenia ICD Codes: D69.6 - Thrombocytopenia, unspecified SNOMED: 324413272 (10) Aspiration pneumonia ICD Codes: J69.0 - Pneumonitis due to inhalation of food and vomit SNOMED: 120578035 Assessment/Plan remains confused, ct brain no acute cva, hydrate,rx sepsis, , levemir, ng feed , ampicillen for enterococcal sepsis hypotonic fluis+water,hit for thrombocytopenia 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, now asp pneumonia, broaden atb, hhn,high residual 02/13 and npo,restart feed 02/14 monitor glu low Sat on high flow oxygen,better, tolerates feed nowdoing poorly bioethics consult,st reeval reduce insulin,kcl per bioethics to get peg, unable to sign, dc rod, dcf plan Subjective ROS Limited/Unobtainable: Yes Allergies: Coded Allergies: UNABLE TO ASSESS (Unverified , 02/05/17) Subjective confused pulled out ng Objective Last 24 Hour Vital Signs Date Time Temp Pulse Resp B/P (MAP) Pulse Ox O2 Delivery O2 Flow Rate FiO2 02/19/17 07:19 Nasal Cannula 2.0 28 02/19/17 07:19 97 Nasal Cannula 2.0 28 02/19/17 04:00 97.3 64 20 109/68 100 02/19/17 04:00 100 Nasal Cannula 2.0 02/19/17 00:00 100 Nasal Cannula 2.0 02/19/17 00:00 96.5 70 21 109/63 100 02/18/17 20:39 Nasal Cannula 2.0 28 02/18/17 20:35 96 Nasal Cannula 2.0 28 02/18/17 20:00 100 Nasal Cannula 2.0 02/18/17 20:00 96.3 73 22 103/68 100 02/18/17 15:58 97.9 79 21 98/60 97 Nasal Cannula 2.0 02/18/17 15:22 74 18 98 Nasal Cannula 2.0 28 02/18/17 15:08 74 18 99 Nasal Cannula 4.0 02/18/17 11:50 97.8 73 21 117/69 97 Room Air 02/18/17 11:21 74 18 98 Room Air 02/18/17 11:10 68 18 98 Room Air Intake and Output 02/18/17 02/19/17 19:00 07:00 Intake Total 462.5 ml 990.000 ml Output Total 2200 ml 500 ml Balance -1737.5 ml 490.000 ml Free Water 200 ml IV Total 82.5 ml 990.000 ml Tube Feeding 180 ml Output Urine Total 2200 ml 500 ml # Bowel Movements 1 Laboratory Tests 02/18/17 17:20: Vancomycin Level Trough 21.3H 02/19/17 05:45: White Blood Count 5.1, Red Blood Count 3.60L, Hemoglobin 12.2, Hematocrit 34.9L , Mean Corpuscular Volume 97, Mean Corpuscular Hemoglobin 34.0H, Mean Corpuscular Hemoglobin Concent 35.1, Red Cell Distribution Width 12.1, Platelet Count 265, Mean Platelet Volume 8.8, Neutrophils (%) (Auto) 69.9, Lymphocytes (% ) (Auto) 19.1L, Monocytes (%) (Auto) 4.8, Eosinophils (%) (Auto) 4.9H, Basophils (%) (Auto) 1.2, Prothrombin Time 9.4, Prothromb Time International Ratio 0.9, Sodium Level 145, Potassium Level 3.5, Chloride Level 109H, Carbon Dioxide Level 32, Anion Gap 4L, Blood Urea Nitrogen 8, Creatinine 0.7, Estimat Glomerular Filtration Rate , Glucose Level 85, Calcium Level 8.6 Height (Feet): 5 Height (Inches): 5.00 Weight (Pounds): 125 General Appearance: lethargic, confused EENT: normal ENT inspection Neck: supple Cardiovascular: normal rate, regular rhythm Respiratory/Chest: rhonchi - bilaterally Abdomen: non tender Edema: moderate edema Neurologic: disoriented Skin: other - sacral decub BENOIT GIORDANO Feb 19, 2017 08:55
[2017-02-19] MEDS: Pantoprazole Inj IVP SCH (09:15)
[2017-02-19] MEDS ORDERED: Glucagon 1mg Inj IM ONE (12:40)
[2017-02-19] MEDS ORDERED: Atropine Inj 1mg/10ml Syr IV PRN (13:00)
[2017-02-19] MEDS ORDERED: DiphenhydrAMINE 50mg/ml Inj IVP PRN (13:00)
[2017-02-19] MEDS ORDERED: fentaNYL 100 mcg/2 mL IV PRN (13:00)
[2017-02-19] MEDS ORDERED: Midazolam 2mg/2ml Inj IVP PRN (13:00)
[2017-02-19] MEDS ORDERED: NS 500ML IV ONE (14:30)
--- NOTE | 2017-02-19 14:36 | Endoscopy Procedure Note ---
Endoscopy Procedure Note Indication for Procedure: DYSPHAGIA Procedures Performed: EGD, PEG Operative Findings/Diagnosis: SAME Specimen: none Pt Tolerated Procedure Well: Yes Estimated Blood Loss: none Anesthesiologist: CHARLOTTE Anesthesia: MAC Implant(s) used?: No 50 yrs or older w/o bx or poly: Not Applicable 10yrs. F/U not recommended: Not Applicable ALINE WATERS Feb 19, 2017 14:36
--- NOTE | 2017-02-19 15:22 | Immediate Post-Op Evaluation ---
Immediate Post-Op Evalulation Immediate Post-Op Evalulation Procedure: egd/peg Date of Evaluation: Feb 19, 2017 Time of Evaluation: 15:14 IV Fluids: 0.9ns 150ml Blood Products: none Estimated Blood Loss: negligible Blood Pressure Systolic: 112 Blood Pressure Diastolic: 67 Pulse Rate: 58 Respiratory Rate: 18 O2 Sat by Pulse Oximetry: 99 Temperature (Fahrenheit): 96.5 Pain Score (1-10): 0 Nausea: No Vomiting: No Complications none Patient Status: awake, reacts, patent Hydration Status: adequate Drug: see KP MAYES Feb 19, 2017 15:22
--- NOTE | 2017-02-19 15:24 | 48 Hour Post Anesthesia Eval ---
Post Anesthesia Evaluation Procedure: egd/peg Date of Evaluation: Feb 19, 2017 Time of Evaluation: 15:16 Blood Pressure Systolic: 109 0: 64 Pulse Rate: 58 Respiratory Rate: 18 Temperature (Fahrenheit): 96.5 O2 Sat by Pulse Oximetry: 99 Airway: patent Nausea: No Vomiting: No Pain Intensity: 0 Hydration Status: adequate Cardiopulmonary Status: stable Mental Status/LOC: patient returned to baseline Post-Anesthesia Complications: none Follow-up care needed: N/A KP PRADHAN Feb 19, 2017 15:24
[2017-02-19 16:09] LABS: APPEARANCE,URINE CLEAR; BILIRUBIN, URINE NEGATIVE (NEGATIVE); COLOR,URINE PALE YELLOW; GLUCOSE, URINE (UA) NEGATIVE (NEGATIVE); KETONES,URINE NEGATIVE (NEGATIVE); LEUKOCYTE ESTERASE ,URINE 1+ (NEGATIVE); NITRITE,URINE NEGATIVE (NEGATIVE); PH,URINE 9 (4.5-8.0); PROTEIN,URINE NEGATIVE (NEGATIVE); UROBILINOGEN,URINE NORMAL MG/DL (0.0-1.0)
--- NOTE | 2017-02-19 18:17 | Diagnostic Imaging Report ---
Indication: Cough Comparison: 02/14/2017 A single view chest radiograph was obtained. Findings: Heart size and mediastinal contours are stable. There is increasing interstitial opacification/edema with increased haziness of the left lower and right mid/lower lungs. No pneumothorax. IMPRESSION: Increased interstitial edema/opacification with increasing left basilar opacities.
[2017-02-19] MEDS: Levemir Flexpen SUBQ SCH (21:00)
--- NOTE | 2017-02-19 21:30 | Procedure Note ---
DATE OF PROCEDURE: 02/19/2017 SURGEON: Dennys Howard M.D. REFERRING PHYSICIAN: Shamar Vega M.D. PROCEDURE: Upper endoscopy with PEG placement. ANESTHESIA: Per Dr. Garcia. INSTRUMENT: Olympus adult flexible upper endoscope. INDICATION: Dysphagia. The procedure, risks, benefits, and possible consequences, including hemorrhage, aspiration, perforation and infection, and alternative treatments, were explained to the patient/legal guardian by Dr. Dennys Howard and the patient/legal guardian understood and accepted these risks. DESCRIPTION OF PROCEDURE: After informed consent was obtained and the patient was adequately sedated, Olympus upper endoscope was advanced from mouth into second portion of the duodenum and retroflexion was performed in the stomach. Then, under endoscopic guidance, under sterile condition, a 20-Bel[place] pull type of G-tube was successfully placed in the epigastric area. The distance from the tip of the tube to skin was less than 3 cm in size. The patient tolerated the procedure very well without any complication. SUMMARY OF FINDINGS: Status post successful PEG placement. RECOMMENDATIONS: 1. Abdominal binder. 2. Elevate the head of the bed at all times. 3. G-tube flush. 4. G-tube care. 5. Start tube feeding later today. I want to thank Dr. Vega for this kind referral. Dennys Howard M.D. DR: Mirian JOB#: [id number] CC: Shamar Vega M.D.; Fax#: [phone]
[2017-02-20] VITALS: BP 116/69
[2017-02-20 04:00] VITALS: BP 115/71
[2017-02-20] MEDS: NovoLOG Insulin Flexpen SUBQ SCH ×4 (05:28→17:26)
[2017-02-20 07:14] LABS: BASOPHILS % (AUTO) 0.9 % (0.0-2.0); HEMATOCRIT 39.7 % (37.0-47.0); HEMOGLOBIN 13.2 G/DL (12.0-16.0); LYMPHOCYTES % (AUTO) 19.6 % (20.0-45.0); MEAN CORPUSCULAR VOLUME 101 FL (80-99); MONOCYTES % (AUTO) 8.9 % (1.0-10.0); NEUTROPHILS % (AUTO) 66.5 % (45.0-75.0); PLATELET COUNT 310 K/UL (150-450); RED BLOOD COUNT 3.92 M/UL (4.20-5.40); RED CELL DISTRIBUTION WIDTH 12.8 % (11.6-14.8); WHITE BLOOD COUNT 5.4 K/UL (4.8-10.8)
[2017-02-20 07:36] LABS: ANION GAP 6 mmol/L (5-15); BLOOD UREA NITROGEN 10 mg/dL (7-18); CALCIUM 8.8 MG/DL (8.5-10.1); CARBON DIOXIDE 29 MMOL/L (21-32); CHLORIDE 108 MMOL/L (98-107); CREATININE 0.7 MG/DL (0.55-1.30); POTASSIUM 4.1 MMOL/L (3.5-5.1); SODIUM 143 MMOL/L (136-145)
[2017-02-20 08:00] VITALS: BP 127/69
[2017-02-20 12:00] VITALS: BP 119/73
--- NOTE | 2017-02-20 12:27 | General Progress Note ---
Assessment/Plan Problem List: (1) Severe sepsis ICD Codes: A41.9 - Sepsis, unspecified organism; R65.20 - Severe sepsis without septic shock SNOMED: 53281369 (2) Dehydration ICD Codes: E86.0 - Dehydration SNOMED: 87715653 (3) Hydronephrosis ICD Codes: N13.30 - Unspecified hydronephrosis SNOMED: 87128099 (4) Uremia ICD Codes: N19 - Unspecified kidney failure SNOMED: 02654527 (5) Acute kidney injury ICD Codes: N17.9 - Acute kidney failure, unspecified SNOMED: 92931523 (6) Mass of right ovary ICD Codes: N83.9 - Noninflammatory disorder of ovary, fallopian tube and broad ligament, unspecified SNOMED: 889561945 (7) Altered mental status ICD Codes: R41.82 - Altered mental status, unspecified SNOMED: 193736711 (8) Hypernatremia ICD Codes: E87.0 - Hyperosmolality and hypernatremia SNOMED: 09112584 (9) Thrombocytopenia ICD Codes: D69.6 - Thrombocytopenia, unspecified SNOMED: 511490428 (10) Aspiration pneumonia ICD Codes: J69.0 - Pneumonitis due to inhalation of food and vomit SNOMED: 332517589 Assessment/Plan remains confused, ct brain no acute cva, hydrate,rx sepsis, , levemir, ng feed , ampicillen for enterococcal sepsis hypotonic fluis+water,hit for thrombocytopenia 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, now asp pneumonia, broaden atb, hhn,high residual / and npo,restart feed 02/14 monitor glu low Sat on high flow oxygen,better, tolerates feed nowdoing poorly bioethics consult,st reeval reduce insulin,kcl per bioethics to get peg, unable to sign, dc rod, dc plan Subjective ROS Limited/Unobtainable: Yes Allergies: Coded Allergies: UNABLE TO ASSESS (Unverified , 02/05/17) Subjective confused pulled out ng Objective Last 24 Hour Vital Signs Date Time Temp Pulse Resp B/P (MAP) Pulse Ox O2 Delivery O2 Flow Rate FiO2 02/20/17 12:00 97.0 78 20 119/73 100 02/20/17 08:00 97.5 78 20 127/69 97 02/20/17 04:00 97.4 86 18 115/71 96 Nasal Cannula 2.0 02/20/17 00:00 98.0 72 18 116/69 98 Nasal Cannula 2.0 02/19/17 21:59 Nasal Cannula 2.0 28 02/19/17 21:59 96 Nasal Cannula 2.0 28 02/19/17 20:59 75 20 Venturi Mask 55 02/19/17 20:00 97.1 60 18 125/70 97 Nasal Cannula 2.0 02/19/17 16:00 96.0 59 20 130/69 98 02/19/17 15:30 58 14 103/60 96 Room Air 02/19/17 15:24 58 18 99 02/19/17 15:22 58 18 99 02/19/17 15:20 56 14 109/66 99 Nasal Cannula 4.0 02/19/17 15:10 56 18 103/66 98 Nasal Cannula 4.0 02/19/17 15:05 56 16 107/64 93 Nasal Cannula 4.0 02/19/17 15:02 96.9 55 14 112/67 93 Nasal Cannula 4.0 Intake and Output 02/19/17 02/20/17 19:00 07:00 Intake Total 410 ml 1290 ml Output Total 400 ml Balance 10 ml 1290 ml Free Water 200 ml 600 ml IV Total 150 ml Tube Feeding 60 ml 690 ml Output Urine Total 400 ml # Voids 2 # Bowel Movements 5 Laboratory Tests 02/20/17 05:40: White Blood Count 5.4, Red Blood Count 3.92L, Hemoglobin 13.2, Hematocrit 39.7, Mean Corpuscular Volume 101H, Mean Corpuscular Hemoglobin 33.7H, Mean Corpuscular Hemoglobin Concent 33.3, Red Cell Distribution Width 12.8, Platelet Count 310, Mean Platelet Volume 8.0, Neutrophils (%) (Auto) 66.5, Lymphocytes (% ) (Auto) 19.6L, Monocytes (%) (Auto) 8.9, Eosinophils (%) (Auto) 4.0H, Basophils (%) (Auto) 0.9, Sodium Level 143, Potassium Level 4.1, Chloride Level 108H, Carbon Dioxide Level 29, Anion Gap 6, Blood Urea Nitrogen 10, Creatinine 0.7, Estimat Glomerular Filtration Rate , Glucose Level 126H, Calcium Level 8.8 Height (Feet): 5 Height (Inches): 5.00 Weight (Pounds): 135 General Appearance: no apparent distress, confused EENT: normal ENT inspection Neck: supple Cardiovascular: regular rhythm Respiratory/Chest: lungs clear Abdomen: no organomegaly Edema: mild edema Neurologic: disoriented BENOIT GIORDANO Feb 20, 2017 12:27
[2017-02-20] MEDS ORDERED: Furosemide 40mg tab GT ONE (13:00)
[2017-02-20] MEDS ORDERED: NS 275ml ONE (15:18)
[2017-02-20] MEDS ORDERED: Tubing IV Secondary IV ONE (15:18)
[2017-02-20 15:48] VITALS: BP 133/74
[2017-02-20] MEDS ORDERED: D5 1/2NS 1000ml IV ONE (18:28)
[2017-02-20] MEDS ORDERED: Sterile Water Irrig 1000ml IRRIG ONE (18:28)
[2017-02-20 20:00] VITALS: BP 117/70
[2017-02-20] MEDS: Levemir Flexpen SUBQ SCH (20:52)
[2017-02-21] VITALS: BP 123/56
[2017-02-21] MEDS: NovoLOG Insulin Flexpen SUBQ SCH ×5 (00:04→23:59)
[2017-02-21 04:00] VITALS: BP 138/77
[2017-02-21 08:00] VITALS: BP 128/78
[2017-02-21 12:06] VITALS: BP 135/74
--- NOTE | 2017-02-21 13:49 | General Progress Note ---
Assessment/Plan Problem List: (1) Severe sepsis ICD Codes: A41.9 - Sepsis, unspecified organism; R65.20 - Severe sepsis without septic shock SNOMED: 08162748 (2) Dehydration ICD Codes: E86.0 - Dehydration SNOMED: 17016304 (3) Hydronephrosis ICD Codes: N13.30 - Unspecified hydronephrosis SNOMED: 67114768 (4) Uremia ICD Codes: N19 - Unspecified kidney failure SNOMED: 75077499 (5) Acute kidney injury ICD Codes: N17.9 - Acute kidney failure, unspecified SNOMED: 22479894 (6) Mass of right ovary ICD Codes: N83.9 - Noninflammatory disorder of ovary, fallopian tube and broad ligament, unspecified SNOMED: 260299808 (7) Altered mental status ICD Codes: R41.82 - Altered mental status, unspecified SNOMED: 031949138 (8) Hypernatremia ICD Codes: E87.0 - Hyperosmolality and hypernatremia SNOMED: 64716926 (9) Thrombocytopenia ICD Codes: D69.6 - Thrombocytopenia, unspecified SNOMED: 367311715 (10) Aspiration pneumonia ICD Codes: J69.0 - Pneumonitis due to inhalation of food and vomit SNOMED: 689686260 Assessment/Plan remains confused, ct brain no acute cva, hydrate,rx sepsis, , levemir, ng feed , ampicillen for enterococcal sepsis hypotonic fluis+water,hit for thrombocytopenia 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, now asp pneumonia, broaden atb, hhn,high residual / and npo,restart feed 02/14 monitor glu low Sat on high flow oxygen,better, tolerates feed nowdoing poorly bioethics consult,st reeval reduce insulin,kcl per bioethics to get peg, unable to sign, dc rod, dc plan Subjective ROS Limited/Unobtainable: Yes Allergies: Coded Allergies: UNABLE TO ASSESS (Unverified , 02/05/17) Subjective confused pulled out ng Objective Last 24 Hour Vital Signs Date Time Temp Pulse Resp B/P (MAP) Pulse Ox O2 Delivery O2 Flow Rate FiO2 02/21/17 12:06 98.2 92 22 135/74 95 Nasal Cannula 2.0 02/21/17 08:00 97.8 88 20 128/78 96 Nasal Cannula 2.0 02/21/17 04:00 98.0 84 18 138/77 95 Nasal Cannula 2.0 02/21/17 00:00 97.5 68 17 123/56 97 Nasal Cannula 2.0 02/20/17 20:30 Nasal Cannula 2.0 28 02/20/17 20:30 98 Nasal Cannula 2.0 28 02/20/17 20:00 97.7 87 18 117/70 98 Nasal Cannula 2.0 02/20/17 15:48 97.7 75 20 133/74 98 Intake and Output 02/20/17 02/21/17 19:00 07:00 Intake Total 560 ml 840 ml Output Total 1500 ml 1000 ml Balance -940 ml -160 ml Intake Oral 0 ml Free Water 200 ml 180 ml Tube Feeding 360 ml 660 ml Output Urine Total 1500 ml 1000 ml # Voids 2 # Bowel Movements 3 Height (Feet): 5 Height (Inches): 5.00 Weight (Pounds): 132 General Appearance: no apparent distress, alert, confused EENT: normal ENT inspection Neck: normal alignment Cardiovascular: normal rate, regular rhythm Respiratory/Chest: lungs clear Abdomen: non tender, soft Edema: mild edema Neurologic: disoriented BENOIT GIORDANO Feb 21, 2017 13:49
[2017-02-21 16:00] VITALS: BP 152/86
[2017-02-21] MEDS: Acetaminophen 650mg/20.3ml GT PRN (17:28)
[2017-02-21] MEDS: Levofloxacin 500mg tab ORAL SCH (17:28)
[2017-02-21 20:00] VITALS: BP 154/86
[2017-02-21] MEDS: metroNIDAZOLE 500mg tab GT SCH (21:09)
[2017-02-21] MEDS: Enoxaparin Sodium 300mg/3ml vial SUBQ SCH (21:10)
[2017-02-21] MEDS: Levemir Flexpen SUBQ SCH (21:10)
[2017-02-22] VITALS: BP 158/86
[2017-02-22 03:58] VITALS: BP 161/86
[2017-02-22] MEDS: NovoLOG Insulin Flexpen SUBQ SCH ×4 (06:03→23:26)
[2017-02-22] MEDS: metroNIDAZOLE 500mg tab GT SCH ×3 (06:07→21:24)
[2017-02-22 07:47] LABS: BASOPHILS % (AUTO) 0.6 % (0.0-2.0); EOSINOPHILS % (AUTO) 1.8 % (0.0-3.0); HEMATOCRIT 34.1 % (37.0-47.0); HEMOGLOBIN 11.6 G/DL (12.0-16.0); MEAN CORPUSCULAR VOLUME 96 FL (80-99); MONOCYTES % (AUTO) 7.6 % (1.0-10.0); PLATELET COUNT 355 K/UL (150-450); RED BLOOD COUNT 3.53 M/UL (4.20-5.40); RED CELL DISTRIBUTION WIDTH 12.4 % (11.6-14.8)
[2017-02-22 08:00] VITALS: BP 118/76
--- NOTE | 2017-02-22 08:23 | Diagnostic Imaging Report ---
Indication: Dyspnea Comparison: 02/19/2017 A single view chest radiograph was obtained. Findings: There is a lucency under the right hemidiaphragm concerning for pneumoperitoneum. This could be from recent procedure versus perforation of hollow viscus. Clinical correlation recommended. A gastrostomy tube is noted. Heart size and mediastinal contours are stable. Persistent patchy bilateral airspace opacities with slight improved aeration of the right lower lung compared to the prior exam. No pneumothorax. No acute osseous abnormality seen. IMPRESSION: Lucency under the right hemidiaphragm concerning for pneumoperitoneum, possibly related to recent procedure (interval placement of gastrostomy tube) versus perforation of hollow viscus. Clinical correlation and follow-up exam recommended. Persistent patchy bilateral airspace opacities with slight improved aeration of the right lower lung compared to the prior exam. This corresponds with the [facility] preliminary report, results transmitted at 18:31 as documented in the preliminary report. Findings also discussed with patient's treating nurse on 4 E. at 8:15 AM on 02/22/2017.
[2017-02-22 08:26] LABS: ANION GAP 8 mmol/L (5-15); BLOOD UREA NITROGEN 12 mg/dL (7-18); CALCIUM 8.9 MG/DL (8.5-10.1); CARBON DIOXIDE 27 MMOL/L (21-32); CHLORIDE 109 MMOL/L (98-107); CREATININE 0.8 MG/DL (0.55-1.30); POTASSIUM 4.1 MMOL/L (3.5-5.1); SODIUM 144 MMOL/L (136-145)
[2017-02-22] MEDS: Levofloxacin 500mg tab ORAL SCH (09:09)
--- NOTE | 2017-02-22 10:52 | GI Progress Note ---
Assessment/Plan Problems: (1) Dehydration ICD Codes: E86.0 - Dehydration SNOMED: 06283847 (2) Severe sepsis ICD Codes: A41.9 - Sepsis, unspecified organism; R65.20 - Severe sepsis without septic shock SNOMED: 30063851 (3) Dysphagia ICD Codes: R13.10 - Dysphagia, unspecified SNOMED: 77459476, 373101839 Status: stable Status Narrative Discussed with Dr. Howard. Assessment/Plan SUMMARY OF FINDINGS: Status post successful PEG placement. RECOMMENDATIONS: 1. Abdominal binder. 2. Elevate the head of the bed at all times. 3. G-tube flush. 4. G-tube care. 5. GTFs per RD fu labs Subjective Subjective limited Objective Last 24 Hour Vital Signs Date Time Temp Pulse Resp B/P (MAP) Pulse Ox O2 Delivery O2 Flow Rate FiO2 02/22/17 08:00 99.0 76 16 118/76 98 02/22/17 03:58 99.3 94 16 161/86 100 02/22/17 00:00 99.1 95 18 158/86 96 02/21/17 20:00 97.9 94 16 154/86 96 02/21/17 19:00 97 Nasal Cannula 2.0 28 02/21/17 19:00 Nasal Cannula 2.0 28 02/21/17 17:58 99.0 02/21/17 16:00 100.5 101 26 152/86 95 Nasal Cannula 2.0 02/21/17 12:06 98.2 92 22 135/74 95 Nasal Cannula 2.0 Intake and Output 02/21/17 02/22/17 18:59 06:59 Intake Total 900 ml 870 ml Output Total 500 ml 500 ml Balance 400 ml 370 ml Free Water 180 ml 150 ml Tube Feeding 720 ml 720 ml Output Urine Total 500 ml 500 ml # Bowel Movements 3 Laboratory Tests Test 02/22/17 06:30 White Blood Count 9.0 K/UL (4.8-10.8) Red Blood Count 3.53 M/UL (4.20-5.40) L Hemoglobin 11.6 G/DL (12.0-16.0) L Hematocrit 34.1 % (37.0-47.0) L Mean Corpuscular Volume 96 FL (80-99) Mean Corpuscular Hemoglobin 32.9 PG (27.0-31.0) H Mean Corpuscular Hemoglobin Concent 34.1 G/DL (32.0-36.0) Red Cell Distribution Width 12.4 % (11.6-14.8) Platelet Count 355 K/UL (150-450) Mean Platelet Volume 7.0 FL (6.5-10.1) Neutrophils (%) (Auto) 78.0 % (45.0-75.0) H Lymphocytes (%) (Auto) 12.0 % (20.0-45.0) L Monocytes (%) (Auto) 7.6 % (1.0-10.0) Eosinophils (%) (Auto) 1.8 % (0.0-3.0) Basophils (%) (Auto) 0.6 % (0.0-2.0) Sodium Level 144 MMOL/L (136-145) Potassium Level 4.1 MMOL/L (3.5-5.1) Chloride Level 109 MMOL/L (98-107) H Carbon Dioxide Level 27 MMOL/L (21-32) Anion Gap 8 mmol/L (5-15) Blood Urea Nitrogen 12 mg/dL (7-18) Creatinine 0.8 MG/DL (0.55-1.30) Estimat Glomerular Filtration Rate mL/min (>60) Glucose Level 158 MG/DL (74-106) H Calcium Level 8.9 MG/DL (8.5-10.1) Microbiology Date/Time Source Procedure Growth Status 02/21/17 18:00 Indwelling Cath Urine Culture - Preliminary NO GROWTH Resulted Height (Feet): 5 Height (Inches): 5.00 Weight (Pounds): 127 General Appearance: no apparent distress Cardiovascular: normal rate Respiratory/Chest: normal breath sounds, no respiratory distress, other - 2LNC Abdominal Exam: normal bowel sounds, non tender, soft, GT site - c/d/i Extremities: non-tender Vee Stock N.P. Feb 22, 2017 10:52
[2017-02-22] MEDS: Enoxaparin Sodium 300mg/3ml vial SUBQ SCH ×2 (11:36→21:19)
[2017-02-22] MEDS: Acetaminophen 650mg/20.3ml GT PRN (11:39)
--- NOTE | 2017-02-22 15:26 | General Progress Note ---
Assessment/Plan Problem List: (1) Severe sepsis ICD Codes: A41.9 - Sepsis, unspecified organism; R65.20 - Severe sepsis without septic shock SNOMED: 23415990 (2) Dehydration ICD Codes: E86.0 - Dehydration SNOMED: 26567504 (3) Hydronephrosis ICD Codes: N13.30 - Unspecified hydronephrosis SNOMED: 35576938 (4) Uremia ICD Codes: N19 - Unspecified kidney failure SNOMED: 74533526 (5) Acute kidney injury ICD Codes: N17.9 - Acute kidney failure, unspecified SNOMED: 55914529 (6) Mass of right ovary ICD Codes: N83.9 - Noninflammatory disorder of ovary, fallopian tube and broad ligament, unspecified SNOMED: 114053454 (7) Altered mental status ICD Codes: R41.82 - Altered mental status, unspecified SNOMED: 093813281 (8) Hypernatremia ICD Codes: E87.0 - Hyperosmolality and hypernatremia SNOMED: 08012614 (9) Thrombocytopenia ICD Codes: D69.6 - Thrombocytopenia, unspecified SNOMED: 765765639 (10) Aspiration pneumonia ICD Codes: J69.0 - Pneumonitis due to inhalation of food and vomit SNOMED: 718527673 Assessment/Plan remains confused, ct brain no acute cva, hydrate,rx sepsis, , levemir, ng feed , ampicillen for enterococcal sepsis hypotonic fluis+water,hit for thrombocytopenia reduce iv 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, now asp pneumonia, broaden atb, hhn,high residual / and npo,restart feed 02/14 monitor glu low Sat on high flow oxygen,better, tolerates feed nowdoing poorly bioethics consult,st reeval reduce insulin,kcl per bioethics to get peg, unable to sign, dc rod, dc plan-=-now with peg, antibiotics gt for pneumonia, dvt on lovenox Subjective ROS Limited/Unobtainable: Yes Allergies: Coded Allergies: UNABLE TO ASSESS (Unverified , 02/05/17) Subjective confused pulled out ng Objective Last 24 Hour Vital Signs Date Time Temp Pulse Resp B/P (MAP) Pulse Ox O2 Delivery O2 Flow Rate FiO2 02/22/17 13:08 99.0 02/22/17 08:00 99.0 76 16 118/76 98 02/22/17 07:00 Nasal Cannula 2.0 28 02/22/17 07:00 98 Nasal Cannula 2.0 28 02/22/17 03:58 99.3 94 16 161/86 100 02/22/17 00:00 99.1 95 18 158/86 96 02/21/17 20:00 97.9 94 16 154/86 96 02/21/17 19:00 97 Nasal Cannula 2.0 28 02/21/17 19:00 Nasal Cannula 2.0 28 02/21/17 16:00 100.5 101 26 152/86 95 Nasal Cannula 2.0 Intake and Output 02/21/17 02/22/17 19:00 07:00 Intake Total 900 ml 870 ml Output Total 500 ml 500 ml Balance 400 ml 370 ml Free Water 180 ml 150 ml Tube Feeding 720 ml 720 ml Output Urine Total 500 ml 500 ml # Bowel Movements 3 Laboratory Tests 02/22/17 06:30: White Blood Count 9.0, Red Blood Count 3.53L, Hemoglobin 11.6L, Hematocrit 34.1L , Mean Corpuscular Volume 96, Mean Corpuscular Hemoglobin 32.9H, Mean Corpuscular Hemoglobin Concent 34.1, Red Cell Distribution Width 12.4, Platelet Count 355, Mean Platelet Volume 7.0, Neutrophils (%) (Auto) 78.0H, Lymphocytes ( %) (Auto) 12.0L, Monocytes (%) (Auto) 7.6, Eosinophils (%) (Auto) 1.8, Basophils (%) (Auto) 0.6, Sodium Level 144, Potassium Level 4.1, Chloride Level 109H, Carbon Dioxide Level 27, Anion Gap 8, Blood Urea Nitrogen 12, Creatinine 0.8, Estimat Glomerular Filtration Rate , Glucose Level 158H, Calcium Level 8.9 Height (Feet): 5 Height (Inches): 5.00 Weight (Pounds): 127 General Appearance: lethargic EENT: normal ENT inspection Neck: normal alignment Cardiovascular: normal rate, regular rhythm Respiratory/Chest: rhonchi - bilaterally Abdomen: non tender, soft Edema: trace edema Neurologic: disoriented BENOIT GIORDANO Feb 22, 2017 15:26
--- NOTE | 2017-02-22 16:07 | Wound Care Consultation ---
Wound Assessment Wound Assessment #1: Wound Number: 1 Wound Present on Admission: Yes New Wound: No Status Change of Wound: No Wound Location Body Site Modif: left, lower Wound Location Body Site: back Wound Type: pressure ulcer Anali Test: Does not Anali Pressure Ulcer Stage: Unstageable Wound Thickness: Full Thickness Wound Length: 10.0 Wound Width: 8.0 Wound Depth: utd Percent of Wound Bed Yellow/Wh: 20 Percent of Wound Black/Brown: 80 Other Colors Identified: redness to surrounding skin has improved. Wound Drainage Description: Serosanguineous Wound Drainage Amount: Moderate Wound Drainage Odor: None/Absent Tissue Surrounding Wound: Intact Wound General Appearance: Draining, Necrotic - yellow/brown wound bed Wound Assessment #2: Wound Number: 2 Wound Present on Admission: Yes New Wound: No Status Change of Wound: Yes - reappearing Wound Location Body Site Modif: left, right, upper Wound Location Body Site: back Wound Type: pressure ulcer - scattered reappearing Anali Test: Does not Anali Pressure Ulcer Stage: Deep Tissue Injury - suspected Percent of Wound [place]/Red: 100 - deep red Wound Drainage Amount: None Wound Drainage Odor: None/Absent Tissue Surrounding Wound: Erythemic Wound General Appearance: Reddened Wound Assessment #3: Wound Number: 3 Wound Present on Admission: No New Wound: Yes Status Change of Wound: No Wound Location Body Site Modif: mid Wound Location Body Site: sacral Wound Type: pressure ulcer Anali Test: Does not Anali Pressure Ulcer Stage: Deep Tissue Injury - linear Wound Thickness: Full Thickness Wound Length: 5.0 Wound Width: 0.5 Wound Depth: utd Percent of Wound Purple/Maroon: 100 Wound Drainage Amount: None Wound Drainage Odor: None/Absent Tissue Surrounding Wound: Erythemic Wound General Appearance: Reddened - maroon Wound Assessment #4: Wound Number: 4 Wound Present on Admission: No - has history left heel stage 1 on admission Wound Location Body Site Modif: left Wound Location Body Site: heel Wound Type: pressure ulcer Anali Test: Does not Anali Pressure Ulcer Stage: Deep Tissue Injury - suspected Wound Thickness: Full Thickness Wound Length: 2.0 Wound Width: 2.0 Wound Depth: utd Percent of Wound [place]/Red: 100 - deep red Wound Drainage Amount: None Wound Drainage Odor: None/Absent Tissue Surrounding Wound: Erythemic Wound General Appearance: Reddened Wound Assessment #5: Wound Number: 5 Wound Present on Admission: Yes New Wound: No Status Change of Wound: No Wound Location Body Site Modif: right Wound Location Body Site: ear - at 02 cannula site Wound Type: pressure ulcer Anali Test: Does not Anali Pressure Ulcer Stage: I Wound Length: 0.5 Wound Width: 0.5 Percent of Wound [place]/Red: 100 Wound Drainage Amount: None Wound Drainage Odor: None/Absent Tissue Surrounding Wound: Intact Wound General Appearance: Reddened Wound Comment reassessment #1 Left lower back DTI pressure ulcer.fully Revealing as unstageable pressure ulcer - noted improving to surrounding tissue however wound bed is necrotic #2 Left and right upper back scattered sDTI pressure ulcer. Skin intact. reappearing #3 Left heel suspected deep tissue injury, pt has history of stage 1 to site. #4 Left buttock stage I pressure ulcer. Resolved #5 Right heel stage I pressure ulcer. Resolved #6 Chemical burn on perineal area. Good progress noted at this time. #7 Right trochanter DTI pressure ulcer. Resolved. #8 Mid sacral deep tissue injury, (linear) #9 right top of ear stage 1 redness - provide cushion to area around 02 cannula Recommendation -Local wound care per protocol -Keep clean and dry -Turn and reposition -Optimize nutrition -Offload both heels -Heel protector on both heels -Low air loss mattress -Assess and f/u accordingly for any changes JASON DELUNA Feb 22, 2017 16:07
[2017-02-22 16:15] VITALS: BP 149/84
[2017-02-22 20:00] VITALS: BP 145/83
[2017-02-22] MEDS: Levemir Flexpen SUBQ SCH (21:22)
[2017-02-23] VITALS: BP 154/88
[2017-02-23 04:00] VITALS: BP 160/91
[2017-02-23] MEDS: NovoLOG Insulin Flexpen SUBQ SCH ×3 (06:00→18:00)
[2017-02-23] MEDS: metroNIDAZOLE 500mg tab GT SCH ×3 (06:12→21:00)
[2017-02-23 07:18] LABS: BASOPHILS % (AUTO) 1.2 % (0.0-2.0); EOSINOPHILS % (AUTO) 7.7 % (0.0-3.0); HEMATOCRIT 33.9 % (37.0-47.0); HEMOGLOBIN 11.3 G/DL (12.0-16.0); LYMPHOCYTES % (AUTO) 12.9 % (20.0-45.0); MEAN CORPUSCULAR VOLUME 97 FL (80-99); MONOCYTES % (AUTO) 8.7 % (1.0-10.0); NEUTROPHILS % (AUTO) 69.5 % (45.0-75.0); PLATELET COUNT 302 K/UL (150-450); WHITE BLOOD COUNT 9.9 K/UL (4.8-10.8)
[2017-02-23 07:48] LABS: ANION GAP 8 mmol/L (5-15); BLOOD UREA NITROGEN 11 mg/dL (7-18); CALCIUM 8.9 MG/DL (8.5-10.1); CARBON DIOXIDE 27 MMOL/L (21-32); CHLORIDE 109 MMOL/L (98-107); CREATININE 0.8 MG/DL (0.55-1.30); SODIUM 144 MMOL/L (136-145)
[2017-02-23 07:56] VITALS: BP 144/84
[2017-02-23] MEDS: Levofloxacin 500mg tab ORAL SCH (09:18)
[2017-02-23] MEDS: Enoxaparin Sodium 300mg/3ml vial SUBQ SCH (09:41)
[2017-02-23 11:50] VITALS: BP 129/99
--- NOTE | 2017-02-23 13:26 | General Progress Note ---
Assessment/Plan Problem List: (1) Severe sepsis ICD Codes: A41.9 - Sepsis, unspecified organism; R65.20 - Severe sepsis without septic shock SNOMED: 82957979 (2) Dehydration ICD Codes: E86.0 - Dehydration SNOMED: 67188493 (3) Hydronephrosis ICD Codes: N13.30 - Unspecified hydronephrosis SNOMED: 38157416 (4) Uremia ICD Codes: N19 - Unspecified kidney failure SNOMED: 32699470 (5) Acute kidney injury ICD Codes: N17.9 - Acute kidney failure, unspecified SNOMED: 49839975 (6) Mass of right ovary ICD Codes: N83.9 - Noninflammatory disorder of ovary, fallopian tube and broad ligament, unspecified SNOMED: 027618685 (7) Altered mental status ICD Codes: R41.82 - Altered mental status, unspecified SNOMED: 229236783 (8) Hypernatremia ICD Codes: E87.0 - Hyperosmolality and hypernatremia SNOMED: 15203810 (9) Thrombocytopenia ICD Codes: D69.6 - Thrombocytopenia, unspecified SNOMED: 719308259 (10) Aspiration pneumonia ICD Codes: J69.0 - Pneumonitis due to inhalation of food and vomit SNOMED: 402700218 Assessment/Plan remains confused, ct brain no acute cva, hydrate,rx sepsis, , levemir, ng feed , ampicillen for enterococcal sepsis hypotonic fluis+water,hit for thrombocytopenia reduce iv 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, now asp pneumonia, broaden atb, hhn,high residual 02/13 and npo,restart feed 02/14 monitor glu low Sat on high flow oxygen,better, tolerates feed nowdoing poorly bioethics consult,st reeval reduce insulin,kcl per bioethics to get peg, unable to sign, dc rod, dc plan-=-now with peg, antibiotics gt for pneumonia, dvt on lovenox Subjective ROS Limited/Unobtainable: Yes Allergies: Coded Allergies: UNABLE TO ASSESS (Unverified , 02/05/17) Subjective confused pulled out ng Objective Last 24 Hour Vital Signs Date Time Temp Pulse Resp B/P (MAP) Pulse Ox O2 Delivery O2 Flow Rate FiO2 02/23/17 11:50 98.6 77 18 129/99 96 Nasal Cannula 2.0 02/23/17 07:56 98.1 76 20 144/84 96 Nasal Cannula 2.0 02/23/17 04:00 98.1 73 19 160/91 100 02/23/17 00:00 98.2 77 20 154/88 100 02/22/17 20:00 97.2 86 19 145/83 96 02/22/17 16:15 98.3 94 21 149/84 97 Nasal Cannula 2.0 Intake and Output 02/22/17 02/23/17 19:00 07:00 Intake Total 480 ml 860 ml Output Total 1600 ml Balance 480 ml -740 ml Free Water 200 ml Tube Feeding 480 ml 660 ml Output Urine Total 1600 ml # Bowel Movements 3 Laboratory Tests 02/23/17 06:30: White Blood Count 9.9, Red Blood Count 3.50L, Hemoglobin 11.3L, Hematocrit 33.9L , Mean Corpuscular Volume 97, Mean Corpuscular Hemoglobin 32.3H, Mean Corpuscular Hemoglobin Concent 33.3, Red Cell Distribution Width 12.0, Platelet Count 302, Mean Platelet Volume 7.0, Neutrophils (%) (Auto) 69.5, Lymphocytes (% ) (Auto) 12.9L, Monocytes (%) (Auto) 8.7, Eosinophils (%) (Auto) 7.7H, Basophils (%) (Auto) 1.2, Sodium Level 144, Potassium Level 4.0, Chloride Level 109H, Carbon Dioxide Level 27, Anion Gap 8, Blood Urea Nitrogen 11, Creatinine 0.8, Estimat Glomerular Filtration Rate > 60, Glucose Level 97, Calcium Level 8.9 Height (Feet): 5 Height (Inches): 5.00 Weight (Pounds): 125 General Appearance: alert, confused EENT: normal ENT inspection Neck: normal alignment Cardiovascular: normal rate, regular rhythm Respiratory/Chest: lungs clear Abdomen: non tender, soft Extremities: no calf tenderness Edema: trace edema Neurologic: disoriented BENOIT GIORDANO Feb 23, 2017 13:26
[2017-02-23 16:00] VITALS: BP 138/82
--- NOTE | 2017-02-23 16:16 | GI Progress Note ---
Assessment/Plan Problems: (1) Dehydration ICD Codes: E86.0 - Dehydration SNOMED: 32861627 (2) Severe sepsis ICD Codes: A41.9 - Sepsis, unspecified organism; R65.20 - Severe sepsis without septic shock SNOMED: 34092396 (3) Dysphagia ICD Codes: R13.10 - Dysphagia, unspecified SNOMED: 87111902, 593907330 Status: stable, unchanged Status Narrative Discussed with Dr. Howard. Assessment/Plan SUMMARY OF FINDINGS: Status post successful PEG placement. RECOMMENDATIONS: okay for DC per GI standpoint 1. Abdominal binder. 2. Elevate the head of the bed at all times. 3. G-tube flush. 4. G-tube care. 5. GTFs per RD fu labs Subjective Subjective limited Objective Last 24 Hour Vital Signs Date Time Temp Pulse Resp B/P (MAP) Pulse Ox O2 Delivery O2 Flow Rate FiO2 02/23/17 11:50 98.6 77 18 129/99 96 Nasal Cannula 2.0 02/23/17 07:56 98.1 76 20 144/84 96 Nasal Cannula 2.0 02/23/17 04:00 98.1 73 19 160/91 100 02/23/17 00:00 98.2 77 20 154/88 100 02/22/17 20:00 97.2 86 19 145/83 96 Intake and Output 02/22/17 02/23/17 19:00 07:00 Intake Total 480 ml 890 ml Output Total 1600 ml Balance 480 ml -710 ml Free Water 200 ml Tube Feeding 480 ml 690 ml Output Urine Total 1600 ml # Bowel Movements 3 Laboratory Tests Test 02/23/17 06:30 White Blood Count 9.9 K/UL (4.8-10.8) Red Blood Count 3.50 M/UL (4.20-5.40) L Hemoglobin 11.3 G/DL (12.0-16.0) L Hematocrit 33.9 % (37.0-47.0) L Mean Corpuscular Volume 97 FL (80-99) Mean Corpuscular Hemoglobin 32.3 PG (27.0-31.0) H Mean Corpuscular Hemoglobin Concent 33.3 G/DL (32.0-36.0) Red Cell Distribution Width 12.0 % (11.6-14.8) Platelet Count 302 K/UL (150-450) Mean Platelet Volume 7.0 FL (6.5-10.1) Neutrophils (%) (Auto) 69.5 % (45.0-75.0) Lymphocytes (%) (Auto) 12.9 % (20.0-45.0) L Monocytes (%) (Auto) 8.7 % (1.0-10.0) Eosinophils (%) (Auto) 7.7 % (0.0-3.0) H Basophils (%) (Auto) 1.2 % (0.0-2.0) Sodium Level 144 MMOL/L (136-145) Potassium Level 4.0 MMOL/L (3.5-5.1) Chloride Level 109 MMOL/L (98-107) H Carbon Dioxide Level 27 MMOL/L (21-32) Anion Gap 8 mmol/L (5-15) Blood Urea Nitrogen 11 mg/dL (7-18) Creatinine 0.8 MG/DL (0.55-1.30) Estimat Glomerular Filtration Rate > 60 mL/min (>60) Glucose Level 97 MG/DL (74-106) Calcium Level 8.9 MG/DL (8.5-10.1) Height (Feet): 5 Height (Inches): 5.00 Weight (Pounds): 125 General Appearance: alert, confused Cardiovascular: normal rate Respiratory/Chest: normal breath sounds, no respiratory distress Abdominal Exam: normal bowel sounds, non tender, soft, GT site - c/d/i Extremities: normal range of motion, non-tender Vee Stock N.P. Feb 23, 2017 16:16
[2017-02-23 20:00] VITALS: BP 146/82
[2017-02-23] MEDS: Enoxaparin 60mg Inj SUBQ SCH (20:46)
[2017-02-23] MEDS: Levemir Flexpen SUBQ SCH (20:47)
[2017-02-24] VITALS: BP 147/81
[2017-02-24 04:00] VITALS: BP 130/73
[2017-02-24] MEDS: metroNIDAZOLE 500mg tab GT SCH ×3 (05:08→21:07)
[2017-02-24] MEDS: NovoLOG Insulin Flexpen SUBQ SCH ×5 (05:23→23:20)
[2017-02-24 08:00] VITALS: BP 142/80
[2017-02-24 08:12] LABS: BASOPHILS % (AUTO) 0.8 % (0.0-2.0); EOSINOPHILS % (AUTO) 8.6 % (0.0-3.0); HEMATOCRIT 32.3 % (37.0-47.0); LYMPHOCYTES % (AUTO) 16.3 % (20.0-45.0); MEAN CORPUSCULAR VOLUME 94 FL (80-99); MONOCYTES % (AUTO) 8.1 % (1.0-10.0); NEUTROPHILS % (AUTO) 66.2 % (45.0-75.0); PLATELET COUNT 292 K/UL (150-450); RED BLOOD COUNT 3.42 M/UL (4.20-5.40); RED CELL DISTRIBUTION WIDTH 11.9 % (11.6-14.8); WHITE BLOOD COUNT 10.1 K/UL (4.8-10.8)
[2017-02-24 08:15] LABS: ANION GAP 4 mmol/L (5-15); BLOOD UREA NITROGEN 9 mg/dL (7-18); CALCIUM 8.5 MG/DL (8.5-10.1); CARBON DIOXIDE 30 MMOL/L (21-32); CHLORIDE 109 MMOL/L (98-107); CREATININE 0.7 MG/DL (0.55-1.30); POTASSIUM 3.3 MMOL/L (3.5-5.1); SODIUM 143 MMOL/L (136-145)
[2017-02-24] MEDS: Levofloxacin 500mg tab ORAL SCH (09:09)
[2017-02-24] MEDS: Enoxaparin 60mg Inj SUBQ SCH ×2 (09:10→20:30)
--- NOTE | 2017-02-24 10:57 | GI Progress Note ---
Assessment/Plan Problems: (1) Dehydration ICD Codes: E86.0 - Dehydration SNOMED: 34916958 (2) Severe sepsis ICD Codes: A41.9 - Sepsis, unspecified organism; R65.20 - Severe sepsis without septic shock SNOMED: 23084589 (3) Dysphagia ICD Codes: R13.10 - Dysphagia, unspecified SNOMED: 08907953, 483345747 Status: stable Status Narrative Discussed with Dr. Howard. Assessment/Plan SUMMARY OF FINDINGS: Status post successful PEG placement. RECOMMENDATIONS: okay for DC per GI standpoint 1. Abdominal binder. 2. Elevate the head of the bed at all times. 3. G-tube flush. 4. G-tube care. 5. GTFs per RD fu labs Subjective Subjective limited Objective Last 24 Hour Vital Signs Date Time Temp Pulse Resp B/P (MAP) Pulse Ox O2 Delivery O2 Flow Rate FiO2 02/24/17 08:00 97.3 66 20 142/80 100 02/24/17 04:00 99.0 69 20 130/73 97 02/24/17 04:00 97 Nasal Cannula 2.0 02/24/17 00:00 99 Nasal Cannula 2.0 02/24/17 00:00 97.2 69 20 147/81 99 02/23/17 20:00 94 Nasal Cannula 2.0 02/23/17 20:00 99.1 77 19 146/82 94 02/23/17 19:00 97 Nasal Cannula 2.0 28 02/23/17 19:00 Nasal Cannula 2.0 28 02/23/17 16:00 98.0 73 18 138/82 98 02/23/17 11:50 98.6 77 18 129/99 96 Nasal Cannula 2.0 Intake and Output 02/23/17 02/24/17 19:00 07:00 Intake Total 560 ml 330 ml Output Total 500 ml Balance 60 ml 330 ml Free Water 200 ml Tube Feeding 360 ml 330 ml Output Urine Total 500 ml # Bowel Movements 1 2 Laboratory Tests Test 02/24/17 07:03 White Blood Count 10.1 K/UL (4.8-10.8) Red Blood Count 3.42 M/UL (4.20-5.40) L Hemoglobin 11.0 G/DL (12.0-16.0) L Hematocrit 32.3 % (37.0-47.0) L Mean Corpuscular Volume 94 FL (80-99) Mean Corpuscular Hemoglobin 32.2 PG (27.0-31.0) H Mean Corpuscular Hemoglobin Concent 34.1 G/DL (32.0-36.0) Red Cell Distribution Width 11.9 % (11.6-14.8) Platelet Count 292 K/UL (150-450) Mean Platelet Volume 7.1 FL (6.5-10.1) Neutrophils (%) (Auto) 66.2 % (45.0-75.0) Lymphocytes (%) (Auto) 16.3 % (20.0-45.0) L Monocytes (%) (Auto) 8.1 % (1.0-10.0) Eosinophils (%) (Auto) 8.6 % (0.0-3.0) H Basophils (%) (Auto) 0.8 % (0.0-2.0) Sodium Level 143 MMOL/L (136-145) Potassium Level 3.3 MMOL/L (3.5-5.1) L Chloride Level 109 MMOL/L (98-107) H Carbon Dioxide Level 30 MMOL/L (21-32) Anion Gap 4 mmol/L (5-15) L Blood Urea Nitrogen 9 mg/dL (7-18) Creatinine 0.7 MG/DL (0.55-1.30) Estimat Glomerular Filtration Rate > 60 mL/min (>60) Glucose Level 89 MG/DL (74-106) Calcium Level 8.5 MG/DL (8.5-10.1) Height (Feet): 5 Height (Inches): 5.00 Weight (Pounds): 125 General Appearance: no apparent distress, alert, confused Cardiovascular: normal rate Respiratory/Chest: lungs clear, normal breath sounds Abdominal Exam: site - c/d/i Vee Stock N.P. Feb 24, 2017 10:57
[2017-02-24 12:00] VITALS: BP 122/68
--- NOTE | 2017-02-24 15:23 | Diagnostic Imaging Report ---
Indication: Dysphasia Procedure and findings: Real-time fluoroscopic imaging performed in a lateral projection in conjunction with the speech pathologist evaluation. Variable consistencies of barium given per mouth. Findings: Significant abnormalities of both oral and pharyngeal phases of swallowing are demonstrated. Total fluoroscopic time 200 seconds. There is a trace aspiration demonstrated with thin liquids. Abnormal video swallow. Please refer to speech pathology evaluation for more information.
[2017-02-24 16:00] VITALS: BP 139/76
--- NOTE | 2017-02-24 16:53 | General Progress Note ---
Assessment/Plan Problem List: (1) Severe sepsis ICD Codes: A41.9 - Sepsis, unspecified organism; R65.20 - Severe sepsis without septic shock SNOMED: 24281269 (2) Dehydration ICD Codes: E86.0 - Dehydration SNOMED: 78984586 (3) Hydronephrosis ICD Codes: N13.30 - Unspecified hydronephrosis SNOMED: 57774939 (4) Uremia ICD Codes: N19 - Unspecified kidney failure SNOMED: 12110898 (5) Acute kidney injury ICD Codes: N17.9 - Acute kidney failure, unspecified SNOMED: 53496117 (6) Mass of right ovary ICD Codes: N83.9 - Noninflammatory disorder of ovary, fallopian tube and broad ligament, unspecified SNOMED: 720083911 (7) Altered mental status ICD Codes: R41.82 - Altered mental status, unspecified SNOMED: 732483090 (8) Hypernatremia ICD Codes: E87.0 - Hyperosmolality and hypernatremia SNOMED: 21754458 (9) Thrombocytopenia ICD Codes: D69.6 - Thrombocytopenia, unspecified SNOMED: 713947275 (10) Aspiration pneumonia ICD Codes: J69.0 - Pneumonitis due to inhalation of food and vomit SNOMED: 576058716 Assessment/Plan remains confused, ct brain no acute cva, hydrate,rx sepsis, , levemir, ng feed , ampicillen for enterococcal sepsis hypotonic fluis+water,hit for thrombocytopenia reduce iv 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, now asp pneumonia, broaden atb, hhn,high residual / and npo,restart feed / monitor glu low Sat on high flow oxygen,better, tolerates feed nowdoing poorly bioethics consult,st reeval reduce insulin,kcl per bioethics to get peg, unable to sign, dc rod, dc plan-=-now with peg, antibiotics gt for pneumonia, dvt on lovenox, check ammonia Subjective ROS Limited/Unobtainable: Yes Allergies: Coded Allergies: UNABLE TO ASSESS (Unverified , 02/05/17) Subjective confused pulled out ng Objective Last 24 Hour Vital Signs Date Time Temp Pulse Resp B/P (MAP) Pulse Ox O2 Delivery O2 Flow Rate FiO2 02/24/17 16:00 97.2 63 20 139/76 99 02/24/17 12:00 97.0 62 20 122/68 100 02/24/17 08:00 97.3 66 20 142/80 100 02/24/17 04:00 99.0 69 20 130/73 97 02/24/17 04:00 97 Nasal Cannula 2.0 02/24/17 00:00 99 Nasal Cannula 2.0 02/24/17 00:00 97.2 69 20 147/81 99 02/23/17 20:00 94 Nasal Cannula 2.0 02/23/17 20:00 99.1 77 19 146/82 94 02/23/17 19:00 97 Nasal Cannula 2.0 28 02/23/17 19:00 Nasal Cannula 2.0 28 Intake and Output 02/23/17 02/24/17 19:00 07:00 Intake Total 560 ml 330 ml Output Total 500 ml Balance 60 ml 330 ml Free Water 200 ml Tube Feeding 360 ml 330 ml Output Urine Total 500 ml # Bowel Movements 1 2 Laboratory Tests 02/24/17 07:03: White Blood Count 10.1, Red Blood Count 3.42L, Hemoglobin 11.0L, Hematocrit 32.3L, Mean Corpuscular Volume 94, Mean Corpuscular Hemoglobin 32.2H, Mean Corpuscular Hemoglobin Concent 34.1, Red Cell Distribution Width 11.9, Platelet Count 292, Mean Platelet Volume 7.1, Neutrophils (%) (Auto) 66.2, Lymphocytes (% ) (Auto) 16.3L, Monocytes (%) (Auto) 8.1, Eosinophils (%) (Auto) 8.6H, Basophils (%) (Auto) 0.8, Sodium Level 143, Potassium Level 3.3L, Chloride Level 109H, Carbon Dioxide Level 30, Anion Gap 4L, Blood Urea Nitrogen 9, Creatinine 0.7, Estimat Glomerular Filtration Rate > 60, Glucose Level 89, Calcium Level 8.5 Height (Feet): 5 Height (Inches): 5.00 Weight (Pounds): 125 General Appearance: no apparent distress, lethargic, confused EENT: normal ENT inspection Neck: normal alignment Cardiovascular: normal rate, regular rhythm Respiratory/Chest: lungs clear Abdomen: non tender Edema: trace edema Neurologic: disoriented BENOIT GIORDANO Feb 24, 2017 16:53
[2017-02-24 20:00] VITALS: BP 123/75
[2017-02-24] MEDS: Levemir Flexpen SUBQ SCH (20:30)
[2017-02-25] VITALS: BP 127/76
[2017-02-25 04:00] VITALS: BP 117/66
[2017-02-25] MEDS: metroNIDAZOLE 500mg tab GT SCH ×3 (05:21→21:13)
[2017-02-25] MEDS: NovoLOG Insulin Flexpen SUBQ SCH ×4 (05:22→23:44)
[2017-02-25 08:00] VITALS: BP 131/74
[2017-02-25 08:04] LABS: BASOPHILS % (AUTO) 1.6 % (0.0-2.0); EOSINOPHILS % (AUTO) 7.9 % (0.0-3.0); HEMATOCRIT 31.5 % (37.0-47.0); HEMOGLOBIN 10.7 G/DL (12.0-16.0); LYMPHOCYTES % (AUTO) 20.2 % (20.0-45.0); MEAN CORPUSCULAR VOLUME 95 FL (80-99); MONOCYTES % (AUTO) 8.9 % (1.0-10.0); NEUTROPHILS % (AUTO) 61.4 % (45.0-75.0); PLATELET COUNT 294 K/UL (150-450); WHITE BLOOD COUNT 8.6 K/UL (4.8-10.8)
[2017-02-25 08:34] LABS: ANION GAP 8 mmol/L (5-15); BLOOD UREA NITROGEN 9 mg/dL (7-18); CALCIUM 8.6 MG/DL (8.5-10.1); CARBON DIOXIDE 27 MMOL/L (21-32); CHLORIDE 110 MMOL/L (98-107); CREATININE 0.8 MG/DL (0.55-1.30); POTASSIUM 3.2 MMOL/L (3.5-5.1); SODIUM 145 MMOL/L (136-145)
[2017-02-25] MEDS: Levofloxacin 500mg tab ORAL SCH (08:35)
[2017-02-25] MEDS: Enoxaparin 60mg Inj SUBQ SCH ×2 (08:38→20:06)
--- NOTE | 2017-02-25 11:46 | GI Progress Note ---
Assessment/Plan Problems: (1) Dehydration ICD Codes: E86.0 - Dehydration SNOMED: 36498593 (2) Severe sepsis ICD Codes: A41.9 - Sepsis, unspecified organism; R65.20 - Severe sepsis without septic shock SNOMED: 36358796 (3) Dysphagia ICD Codes: R13.10 - Dysphagia, unspecified SNOMED: 90042595, 525576139 Status: stable Status Narrative Discussed with Dr. Howard. Assessment/Plan SUMMARY OF FINDINGS: Status post successful PEG placement. RECOMMENDATIONS: okay for DC per GI standpoint 1. Abdominal binder. 2. Elevate the head of the bed at all times. 3. G-tube flush. 4. G-tube care. 5. GTFs per RD fu labs Subjective Subjective limited Objective Last 24 Hour Vital Signs Date Time Temp Pulse Resp B/P (MAP) Pulse Ox O2 Delivery O2 Flow Rate FiO2 02/25/17 08:00 98.4 70 20 131/74 97 02/25/17 04:00 98.2 67 20 117/66 95 02/25/17 00:00 98.1 69 20 127/76 96 02/24/17 20:00 97.7 69 20 123/75 96 02/24/17 16:00 97.2 63 20 139/76 99 02/24/17 12:00 97.0 62 20 122/68 100 Intake and Output 02/24/17 02/25/17 19:00 07:00 Intake Total 330 ml 450 ml Output Total 350 ml Balance -20 ml 450 ml Intake Oral 0 ml Free Water 120 ml Tube Feeding 330 ml 330 ml Output Urine Total 350 ml # Voids 4 # Bowel Movements 4 1 Laboratory Tests Test 02/25/17 06:15 White Blood Count 8.6 K/UL (4.8-10.8) Red Blood Count 3.30 M/UL (4.20-5.40) L Hemoglobin 10.7 G/DL (12.0-16.0) L Hematocrit 31.5 % (37.0-47.0) L Mean Corpuscular Volume 95 FL (80-99) Mean Corpuscular Hemoglobin 32.4 PG (27.0-31.0) H Mean Corpuscular Hemoglobin Concent 34.0 G/DL (32.0-36.0) Red Cell Distribution Width 12.0 % (11.6-14.8) Platelet Count 294 K/UL (150-450) Mean Platelet Volume 7.2 FL (6.5-10.1) Neutrophils (%) (Auto) 61.4 % (45.0-75.0) Lymphocytes (%) (Auto) 20.2 % (20.0-45.0) Monocytes (%) (Auto) 8.9 % (1.0-10.0) Eosinophils (%) (Auto) 7.9 % (0.0-3.0) H Basophils (%) (Auto) 1.6 % (0.0-2.0) Sodium Level 145 MMOL/L (136-145) Potassium Level 3.2 MMOL/L (3.5-5.1) L Chloride Level 110 MMOL/L (98-107) H Carbon Dioxide Level 27 MMOL/L (21-32) Anion Gap 8 mmol/L (5-15) Blood Urea Nitrogen 9 mg/dL (7-18) Creatinine 0.8 MG/DL (0.55-1.30) Estimat Glomerular Filtration Rate > 60 mL/min (>60) Glucose Level 77 MG/DL (74-106) Calcium Level 8.6 MG/DL (8.5-10.1) Ammonia 35 umol/L (11-32) H Height (Feet): 5 Height (Inches): 5.00 Weight (Pounds): 127 General Appearance: no apparent distress Cardiovascular: normal rate Respiratory/Chest: normal breath sounds Abdominal Exam: GT site - c/d/i Genitourinary/Rectal: normal rectal exam Extremities: non-tender Vee Stock N.PCaroline Feb 25, 2017 11:46
[2017-02-25 12:00] VITALS: BP 118/68
[2017-02-25 16:08] VITALS: BP 122/75
--- NOTE | 2017-02-25 17:25 | General Progress Note ---
Assessment/Plan Assessment/Plan 1) Severe sepsis ICD Codes: A41.9 - Sepsis, unspecified organism; R65.20 - Severe sepsis without septic shock SNOMED: 70972342 (2) Dehydration ICD Codes: E86.0 - Dehydration SNOMED: 29735240 (3) Hydronephrosis ICD Codes: N13.30 - Unspecified hydronephrosis SNOMED: 75876663 (4) Uremia ICD Codes: N19 - Unspecified kidney failure SNOMED: 40119826 (5) Acute kidney injury ICD Codes: N17.9 - Acute kidney failure, unspecified SNOMED: 39413503 (6) Mass of right ovary ICD Codes: N83.9 - Noninflammatory disorder of ovary, fallopian tube and broad ligament, unspecified SNOMED: 829663523 (7) Altered mental status ICD Codes: R41.82 - Altered mental status, unspecified SNOMED: 726550147 (8) Hypernatremia ICD Codes: E87.0 - Hyperosmolality and hypernatremia SNOMED: 57247176 (9) Thrombocytopenia ICD Codes: D69.6 - Thrombocytopenia, unspecified SNOMED: 627604753 (10) Aspiration pneumonia ICD Codes: J69.0 - Pneumonitis due to inhalation of food and vomit SNOMED: 261690435 Plan: Awaiting disposition Replete K+ Subjective Allergies: Coded Allergies: UNABLE TO ASSESS (Unverified , 02/05/17) Subjective She is non verbal, no distress, Objective Last 24 Hour Vital Signs Date Time Temp Pulse Resp B/P (MAP) Pulse Ox O2 Delivery O2 Flow Rate FiO2 02/25/17 16:08 97.5 74 19 122/75 100 02/25/17 12:00 98.1 70 20 118/68 96 02/25/17 08:00 98.4 70 20 131/74 97 02/25/17 04:00 98.2 67 20 117/66 95 02/25/17 00:00 98.1 69 20 127/76 96 02/24/17 20:00 97.7 69 20 123/75 96 Intake and Output 02/24/17 02/25/17 19:00 07:00 Intake Total 330 ml 450 ml Output Total 350 ml Balance -20 ml 450 ml Intake Oral 0 ml Free Water 120 ml Tube Feeding 330 ml 330 ml Output Urine Total 350 ml # Voids 4 # Bowel Movements 4 1 Laboratory Tests 02/25/17 06:15: White Blood Count 8.6, Red Blood Count 3.30L, Hemoglobin 10.7L, Hematocrit 31.5L , Mean Corpuscular Volume 95, Mean Corpuscular Hemoglobin 32.4H, Mean Corpuscular Hemoglobin Concent 34.0, Red Cell Distribution Width 12.0, Platelet Count 294, Mean Platelet Volume 7.2, Neutrophils (%) (Auto) 61.4, Lymphocytes (% ) (Auto) 20.2, Monocytes (%) (Auto) 8.9, Eosinophils (%) (Auto) 7.9H, Basophils (%) (Auto) 1.6, Sodium Level 145, Potassium Level 3.2L, Chloride Level 110H, Carbon Dioxide Level 27, Anion Gap 8, Blood Urea Nitrogen 9, Creatinine 0.8, Estimat Glomerular Filtration Rate > 60, Glucose Level 77, Calcium Level 8.6, Ammonia 35H Height (Feet): 5 Height (Inches): 5.00 Weight (Pounds): 127 General Appearance: WD/WN, no apparent distress EENT: PERRL/EOMI Neck: non-tender, normal alignment Respiratory/Chest: chest wall non-tender, no respiratory distress, rhonchi - bilaterally Abdomen: soft, other - GT in place Edema: mild edema Neurologic: disoriented, other - L facial droop ALEE GOULD Feb 25, 2017 17:25
[2017-02-25 20:00] VITALS: BP 108/65
[2017-02-25] MEDS: Levemir Flexpen SUBQ SCH (20:08)
[2017-02-26] VITALS: BP_SYST 115; BP_SYST 119; BP_DIAS 54; BP_DIAS 65
[2017-02-26 04:00] VITALS: BP 130/78
[2017-02-26] MEDS: NovoLOG Insulin Flexpen SUBQ SCH ×3 (05:24→16:58)
[2017-02-26] MEDS: metroNIDAZOLE 500mg tab GT SCH ×3 (05:31→21:44)
[2017-02-26 08:11] LABS: BASOPHILS % (AUTO) 1.1 % (0.0-2.0); EOSINOPHILS % (AUTO) 5.9 % (0.0-3.0); HEMATOCRIT 31.6 % (37.0-47.0); HEMOGLOBIN 10.5 G/DL (12.0-16.0); LYMPHOCYTES % (AUTO) 23.3 % (20.0-45.0); MEAN CORPUSCULAR VOLUME 96 FL (80-99); MONOCYTES % (AUTO) 8.5 % (1.0-10.0); NEUTROPHILS % (AUTO) 61.2 % (45.0-75.0); PLATELET COUNT 292 K/UL (150-450); RED BLOOD COUNT 3.29 M/UL (4.20-5.40); RED CELL DISTRIBUTION WIDTH 12.4 % (11.6-14.8); WHITE BLOOD COUNT 8.4 K/UL (4.8-10.8)
[2017-02-26 08:15] VITALS: BP 124/71
[2017-02-26] MEDS: Levofloxacin 500mg tab ORAL SCH (08:19)
[2017-02-26 08:22] LABS: ANION GAP 6 mmol/L (5-15); BLOOD UREA NITROGEN 7 mg/dL (7-18); CALCIUM 8.6 MG/DL (8.5-10.1); CARBON DIOXIDE 26 MMOL/L (21-32); CHLORIDE 114 MMOL/L (98-107); CREATININE 0.7 MG/DL (0.55-1.30); POTASSIUM 3.6 MMOL/L (3.5-5.1); SODIUM 146 MMOL/L (136-145)
[2017-02-26] MEDS: Enoxaparin 60mg Inj SUBQ SCH ×2 (08:22→21:44)
--- NOTE | 2017-02-26 10:58 | GI Progress Note ---
Assessment/Plan Problems: (1) Dehydration ICD Codes: E86.0 - Dehydration SNOMED: 43332006 (2) Severe sepsis ICD Codes: A41.9 - Sepsis, unspecified organism; R65.20 - Severe sepsis without septic shock SNOMED: 65812337 (3) Dysphagia ICD Codes: R13.10 - Dysphagia, unspecified SNOMED: 38522057, 442598643 Status: stable Status Narrative Discussed with Dr. Howard. Assessment/Plan SUMMARY OF FINDINGS: Status post successful PEG placement. RECOMMENDATIONS: okay for DC per GI standpoint 1. Abdominal binder. 2. Elevate the head of the bed at all times. 3. G-tube flush. 4. G-tube care. 5. GTFs per RD fu labs Subjective Subjective limited Objective Last 24 Hour Vital Signs Date Time Temp Pulse Resp B/P (MAP) Pulse Ox O2 Delivery O2 Flow Rate FiO2 02/26/17 08:15 97.7 64 21 124/71 97 Nasal Cannula 2.0 02/26/17 04:00 97.7 63 18 130/78 98 Nasal Cannula 2.0 02/26/17 00:00 98.1 61 18 115/65 97 Nasal Cannula 2.0 02/25/17 20:00 97.9 70 20 108/65 97 02/25/17 16:08 97.5 74 19 122/75 100 02/25/17 12:00 98.1 70 20 118/68 96 Intake and Output 02/25/17 02/26/17 19:00 07:00 Intake Total 390 ml 530 ml Output Total 600 ml Balance -210 ml 530 ml Intake Oral 0 ml Free Water 30 ml 20 ml Tube Feeding 360 ml 390 ml Blood Product 120 ml Output Urine Total 600 ml # Bowel Movements 3 Laboratory Tests Test 02/26/17 06:20 White Blood Count 8.4 K/UL (4.8-10.8) Red Blood Count 3.29 M/UL (4.20-5.40) L Hemoglobin 10.5 G/DL (12.0-16.0) L Hematocrit 31.6 % (37.0-47.0) L Mean Corpuscular Volume 96 FL (80-99) Mean Corpuscular Hemoglobin 32.0 PG (27.0-31.0) H Mean Corpuscular Hemoglobin Concent 33.3 G/DL (32.0-36.0) Red Cell Distribution Width 12.4 % (11.6-14.8) Platelet Count 292 K/UL (150-450) Mean Platelet Volume 6.8 FL (6.5-10.1) Neutrophils (%) (Auto) 61.2 % (45.0-75.0) Lymphocytes (%) (Auto) 23.3 % (20.0-45.0) Monocytes (%) (Auto) 8.5 % (1.0-10.0) Eosinophils (%) (Auto) 5.9 % (0.0-3.0) H Basophils (%) (Auto) 1.1 % (0.0-2.0) Sodium Level 146 MMOL/L (136-145) H Potassium Level 3.6 MMOL/L (3.5-5.1) Chloride Level 114 MMOL/L (98-107) H Carbon Dioxide Level 26 MMOL/L (21-32) Anion Gap 6 mmol/L (5-15) Blood Urea Nitrogen 7 mg/dL (7-18) Creatinine 0.7 MG/DL (0.55-1.30) Estimat Glomerular Filtration Rate > 60 mL/min (>60) Glucose Level 101 MG/DL (74-106) Calcium Level 8.6 MG/DL (8.5-10.1) Height (Feet): 5 Height (Inches): 5.00 Weight (Pounds): 126 General Appearance: Vee Pope N.P. Feb 26, 2017 10:58
[2017-02-26 11:52] VITALS: BP 119/67
[2017-02-26 16:00] VITALS: BP 122/70
--- NOTE | 2017-02-26 16:20 | General Progress Note ---
Assessment/Plan Assessment/Plan 1) Severe sepsis ICD Codes: A41.9 - Sepsis, unspecified organism; R65.20 - Severe sepsis without septic shock SNOMED: 40212440 (2) Dehydration ICD Codes: E86.0 - Dehydration SNOMED: 01389901 (3) Hydronephrosis ICD Codes: N13.30 - Unspecified hydronephrosis SNOMED: 71208991 (4) Uremia ICD Codes: N19 - Unspecified kidney failure SNOMED: 71952359 (5) Acute kidney injury ICD Codes: N17.9 - Acute kidney failure, unspecified SNOMED: 94546674 (6) Mass of right ovary ICD Codes: N83.9 - Noninflammatory disorder of ovary, fallopian tube and broad ligament, unspecified SNOMED: 228426245 (7) Altered mental status ICD Codes: R41.82 - Altered mental status, unspecified SNOMED: 402059702 (8) Hypernatremia ICD Codes: E87.0 - Hyperosmolality and hypernatremia SNOMED: 29335261 (9) Thrombocytopenia ICD Codes: D69.6 - Thrombocytopenia, unspecified SNOMED: 157495020 (10) Aspiration pneumonia ICD Codes: J69.0 - Pneumonitis due to inhalation of food and vomit SNOMED: 610613137 Plan: Awaiting disposition Replete K+ Subjective Allergies: Coded Allergies: UNABLE TO ASSESS (Unverified , 02/05/17) Subjective She is non verbal, no distress, no new change Objective Last 24 Hour Vital Signs Date Time Temp Pulse Resp B/P (MAP) Pulse Ox O2 Delivery O2 Flow Rate FiO2 02/26/17 16:00 97.7 69 18 122/70 02/26/17 11:52 97.7 68 20 119/67 99 Nasal Cannula 2.0 02/26/17 08:15 97.7 64 21 124/71 97 Nasal Cannula 2.0 02/26/17 04:00 97.7 63 18 130/78 98 Nasal Cannula 2.0 02/26/17 00:00 98.1 61 18 115/65 97 Nasal Cannula 2.0 02/25/17 20:00 97.9 70 20 108/65 97 Intake and Output 02/25/17 02/26/17 19:00 07:00 Intake Total 390 ml 530 ml Output Total 600 ml Balance -210 ml 530 ml Intake Oral 0 ml Free Water 30 ml 20 ml Tube Feeding 360 ml 390 ml Blood Product 120 ml Output Urine Total 600 ml # Bowel Movements 3 Laboratory Tests 02/26/17 06:20: White Blood Count 8.4, Red Blood Count 3.29L, Hemoglobin 10.5L, Hematocrit 31.6L , Mean Corpuscular Volume 96, Mean Corpuscular Hemoglobin 32.0H, Mean Corpuscular Hemoglobin Concent 33.3, Red Cell Distribution Width 12.4, Platelet Count 292, Mean Platelet Volume 6.8, Neutrophils (%) (Auto) 61.2, Lymphocytes (% ) (Auto) 23.3, Monocytes (%) (Auto) 8.5, Eosinophils (%) (Auto) 5.9H, Basophils (%) (Auto) 1.1, Sodium Level 146H, Potassium Level 3.6, Chloride Level 114H, Carbon Dioxide Level 26, Anion Gap 6, Blood Urea Nitrogen 7, Creatinine 0.7, Estimat Glomerular Filtration Rate > 60, Glucose Level 101, Calcium Level 8.6 Height (Feet): 5 Height (Inches): 5.00 Weight (Pounds): 126 General Appearance: WD/WN EENT: PERRL/EOMI Neck: non-tender, normal alignment Cardiovascular: normal rate, regular rhythm, no JVD Respiratory/Chest: lungs clear Abdomen: non tender, soft Neurologic: disoriented ALEE GOULD Feb 26, 2017 16:20
[2017-02-26 20:00] VITALS: BP 123/69
[2017-02-26] MEDS ORDERED: Sterile Water Irrig 1000ml IRRIG ONE (20:03)
[2017-02-26] MEDS: Levemir Flexpen SUBQ SCH (21:43)
[2017-02-27] VITALS (7 sets, daily range): BP systolic 108–151; BP diastolic 64–103
[2017-02-27] MEDS: NovoLOG Insulin Flexpen SUBQ SCH ×4 (06:00→18:00)
[2017-02-27] MEDS: metroNIDAZOLE 500mg tab GT SCH ×3 (06:23→22:17)
[2017-02-27 07:54] LABS: BASOPHILS % (AUTO) 1.3 % (0.0-2.0); EOSINOPHILS % (AUTO) 5.1 % (0.0-3.0); HEMATOCRIT 33.3 % (37.0-47.0); HEMOGLOBIN 11.1 G/DL (12.0-16.0); LYMPHOCYTES % (AUTO) 24.3 % (20.0-45.0); MEAN CORPUSCULAR VOLUME 96 FL (80-99); MONOCYTES % (AUTO) 7.3 % (1.0-10.0); PLATELET COUNT 320 K/UL (150-450); RED BLOOD COUNT 3.48 M/UL (4.20-5.40); RED CELL DISTRIBUTION WIDTH 12.2 % (11.6-14.8); WHITE BLOOD COUNT 8.2 K/UL (4.8-10.8)
[2017-02-27 08:40] LABS: ANION GAP 9 mmol/L (5-15); BLOOD UREA NITROGEN 6 mg/dL (7-18); CALCIUM 8.8 MG/DL (8.5-10.1); CARBON DIOXIDE 25 MMOL/L (21-32); CHLORIDE 111 MMOL/L (98-107); CREATININE 0.7 MG/DL (0.55-1.30); POTASSIUM 3.6 MMOL/L (3.5-5.1); SODIUM 145 MMOL/L (136-145)
[2017-02-27] MEDS: Levofloxacin 500mg tab ORAL SCH (09:47)
[2017-02-27] MEDS: Enoxaparin 60mg Inj SUBQ SCH ×2 (09:49→22:18)
--- NOTE | 2017-02-27 12:35 | General Progress Note ---
Assessment/Plan Assessment/Plan 1) Severe sepsis ICD Codes: A41.9 - Sepsis, unspecified organism; R65.20 - Severe sepsis without septic shock SNOMED: 81810695 (2) Dehydration ICD Codes: E86.0 - Dehydration SNOMED: 26377770 (3) Hydronephrosis ICD Codes: N13.30 - Unspecified hydronephrosis SNOMED: 76977179 (4) Uremia ICD Codes: N19 - Unspecified kidney failure SNOMED: 84649575 (5) Acute kidney injury ICD Codes: N17.9 - Acute kidney failure, unspecified SNOMED: 85287252 (6) Mass of right ovary ICD Codes: N83.9 - Noninflammatory disorder of ovary, fallopian tube and broad ligament, unspecified SNOMED: 657474772 (7) Altered mental status ICD Codes: R41.82 - Altered mental status, unspecified SNOMED: 885898566 (8) Hypernatremia ICD Codes: E87.0 - Hyperosmolality and hypernatremia SNOMED: 93061614 (9) Thrombocytopenia ICD Codes: D69.6 - Thrombocytopenia, unspecified SNOMED: 958559454 (10) Aspiration pneumonia ICD Codes: J69.0 - Pneumonitis due to inhalation of food and vomit SNOMED: 810661075 Plan: Awaiting disposition Replete K+ Subjective Allergies: Coded Allergies: UNABLE TO ASSESS (Unverified , 02/05/17) Subjective She is non verbal, no distress, no new change Objective Last 24 Hour Vital Signs Date Time Temp Pulse Resp B/P (MAP) Pulse Ox O2 Delivery O2 Flow Rate FiO2 02/27/17 08:00 97.2 64 20 140/74 100 02/27/17 04:00 97.3 64 20 121/75 98 02/27/17 04:00 Nasal Cannula 3.0 02/27/17 00:00 Nasal Cannula 3.0 02/27/17 00:00 97.9 62 20 123/70 96 02/26/17 21:05 77 20 Venturi Mask 55 02/26/17 21:05 Nasal Cannula 2.0 28 02/26/17 21:02 98 Nasal Cannula 2.0 28 02/26/17 20:00 97.7 70 20 123/69 95 02/26/17 20:00 Nasal Cannula 3.0 02/26/17 16:00 97.7 69 18 122/70 Intake and Output 02/26/17 02/27/17 19:00 07:00 Intake Total 250 ml 510 ml Output Total 600 ml Balance 250 ml -90 ml Free Water 220 ml 150 ml Tube Feeding 30 ml 360 ml Output Urine Total 600 ml # Bowel Movements 1 Laboratory Tests 02/27/17 05:19: White Blood Count 8.2, Red Blood Count 3.48L, Hemoglobin 11.1L, Hematocrit 33.3L , Mean Corpuscular Volume 96, Mean Corpuscular Hemoglobin 31.9H, Mean Corpuscular Hemoglobin Concent 33.4, Red Cell Distribution Width 12.2, Platelet Count 320, Mean Platelet Volume 7.1, Neutrophils (%) (Auto) 62.0, Lymphocytes (% ) (Auto) 24.3, Monocytes (%) (Auto) 7.3, Eosinophils (%) (Auto) 5.1H, Basophils (%) (Auto) 1.3, Sodium Level 145, Potassium Level 3.6, Chloride Level 111H, Carbon Dioxide Level 25, Anion Gap 9, Blood Urea Nitrogen 6L, Creatinine 0.7, Estimat Glomerular Filtration Rate > 60, Glucose Level 93, Calcium Level 8.8 Height (Feet): 5 Height (Inches): 5.00 Weight (Pounds): 120 ALEE GOULD Feb 27, 2017 12:35
[2017-02-27] MEDS: Levemir Flexpen SUBQ SCH (22:54)
[2017-02-28] VITALS: BP 120/76
[2017-02-28 04:00] VITALS: BP 135/88
[2017-02-28] MEDS: NovoLOG Insulin Flexpen SUBQ SCH ×4 (06:00→17:44)
[2017-02-28] MEDS: metroNIDAZOLE 500mg tab GT SCH ×2 (06:12→14:53)
[2017-02-28 08:00] VITALS: BP 150/77
[2017-02-28] MEDS: Levofloxacin 500mg tab ORAL SCH (09:33)
[2017-02-28] MEDS: Enoxaparin 60mg Inj SUBQ SCH ×2 (09:34→21:47)
[2017-02-28] MEDS: Acetaminophen 650mg/20.3ml GT PRN ×2 (10:40→14:57)
[2017-02-28 12:00] VITALS: BP 131/63
[2017-02-28 16:15] VITALS: BP_SYST 117; BP_SYST 135; BP_DIAS 66; BP_DIAS 77
--- NOTE | 2017-02-28 17:02 | General Progress Note ---
Assessment/Plan Assessment/Plan 1) Severe sepsis ICD Codes: A41.9 - Sepsis, unspecified organism; R65.20 - Severe sepsis without septic shock SNOMED: 42590825 (2) Dehydration ICD Codes: E86.0 - Dehydration SNOMED: 70550311 (3) Hydronephrosis ICD Codes: N13.30 - Unspecified hydronephrosis SNOMED: 91942800 (4) Uremia ICD Codes: N19 - Unspecified kidney failure SNOMED: 05189417 (5) Acute kidney injury ICD Codes: N17.9 - Acute kidney failure, unspecified SNOMED: 01140650 (6) Mass of right ovary ICD Codes: N83.9 - Noninflammatory disorder of ovary, fallopian tube and broad ligament, unspecified SNOMED: 365620042 (7) Altered mental status ICD Codes: R41.82 - Altered mental status, unspecified SNOMED: 450362962 (8) Hypernatremia ICD Codes: E87.0 - Hyperosmolality and hypernatremia SNOMED: 26056412 (9) Thrombocytopenia ICD Codes: D69.6 - Thrombocytopenia, unspecified SNOMED: 600136957 (10) Aspiration pneumonia ICD Codes: J69.0 - Pneumonitis due to inhalation of food and vomit SNOMED: 916109508 Plan: Awaiting disposition Replete K+ Subjective Allergies: Coded Allergies: UNABLE TO ASSESS (Unverified , 02/05/17) Subjective She is non verbal, no distress, no new change, some agitation yesterday, now sleeping comfortably Objective Last 24 Hour Vital Signs Date Time Temp Pulse Resp B/P (MAP) Pulse Ox O2 Delivery O2 Flow Rate FiO2 02/28/17 16:15 97.6 61 20 135/66 95 Room Air 02/28/17 15:27 97.4 02/28/17 12:00 97.4 63 16 131/63 95 Nasal Cannula 3.0 02/28/17 08:27 Room Air 21 02/28/17 08:27 96 Room Air 21 02/28/17 08:00 97.4 71 20 150/77 96 Nasal Cannula 3.0 02/28/17 04:00 97.5 92 18 135/88 94 02/28/17 00:00 97.9 76 18 120/76 93 02/27/17 20:00 97.2 66 18 108/64 95 Intake and Output 02/27/17 02/28/17 19:00 07:00 Intake Total 810 ml 420 ml Output Total 800 ml Balance 810 ml -380 ml Free Water 450 ml 150 ml Tube Feeding 360 ml 270 ml Output Urine Total 800 ml # Voids 1 # Bowel Movements 1 6 Height (Feet): 5 Height (Inches): 5.00 Weight (Pounds): 127 ALEE GOULD Feb 28, 2017 17:02
[2017-02-28 20:00] VITALS: BP 128/69
[2017-02-28] MEDS: Levemir Flexpen SUBQ SCH (21:48)
[2017-03-01] VITALS (7 sets, daily range): BP systolic 106–155; BP diastolic 36–103
[2017-03-01] MEDS: NovoLOG Insulin Flexpen SUBQ SCH ×4 (06:00→17:39)
[2017-03-01] MEDS: Enoxaparin 60mg Inj SUBQ SCH ×2 (08:56→20:56)
--- NOTE | 2017-03-01 15:55 | GI Progress Note ---
Assessment/Plan Problems: (1) Dehydration ICD Codes: E86.0 - Dehydration SNOMED: 98427927 (2) Severe sepsis ICD Codes: A41.9 - Sepsis, unspecified organism; R65.20 - Severe sepsis without septic shock SNOMED: 80324828 (3) Dysphagia ICD Codes: R13.10 - Dysphagia, unspecified SNOMED: 07586169, 469667077 Status: stable Status Narrative Discussed with Dr. Howard. Assessment/Plan SUMMARY OF FINDINGS: Status post successful PEG placement. RECOMMENDATIONS: okay for DC per GI standpoint 1. Abdominal binder. 2. Elevate the head of the bed at all times. 3. G-tube flush. 4. G-tube care. 5. GTFs per RD fu labs Subjective Subjective limited Objective Last 24 Hour Vital Signs Date Time Temp Pulse Resp B/P (MAP) Pulse Ox O2 Delivery O2 Flow Rate FiO2 03/01/17 11:32 98.2 59 14 128/79 97 Room Air 03/01/17 08:51 Room Air 03/01/17 08:18 97.7 63 16 135/79 93 03/01/17 07:42 Room Air 21 03/01/17 07:42 99 Room Air 21 03/01/17 04:00 97.1 68 18 155/90 90 03/01/17 00:00 98.0 66 19 136/84 96 Room Air 02/28/17 20:00 97.3 60 19 128/69 98 Room Air 02/28/17 16:15 97.6 61 20 135/66 95 Room Air Intake and Output 02/28/17 03/01/17 19:00 07:00 Intake Total 30 ml 580 ml Output Total 300 ml 650 ml Balance -270 ml -70 ml Free Water 250 ml Tube Feeding 30 ml 330 ml Output Urine Total 300 ml 650 ml # Voids 1 # Bowel Movements 1 1 Height (Feet): 5 Height (Inches): 5.00 Weight (Pounds): 120 General Appearance: confused Cardiovascular: normal rate Abdominal Exam: GT site - c/d/i Vee Stock N.P. Mar 01, 2017 15:55
[2017-03-01] MEDS ORDERED: Sterile Water Irrig 1000ml IRRIG ONE (17:10)
[2017-03-01] MEDS: Acetaminophen 650mg/20.3ml GT PRN (17:39)
[2017-03-01] MEDS: Levemir Flexpen SUBQ SCH (20:50)
--- NOTE | 2017-03-01 20:58 | General Progress Note ---
Assessment/Plan Assessment/Plan 1) Severe sepsis ICD Codes: A41.9 - Sepsis, unspecified organism; R65.20 - Severe sepsis without septic shock SNOMED: 95338730 (2) Dehydration ICD Codes: E86.0 - Dehydration SNOMED: 77359631 (3) Hydronephrosis ICD Codes: N13.30 - Unspecified hydronephrosis SNOMED: 74154388 (4) Uremia ICD Codes: N19 - Unspecified kidney failure SNOMED: 53636640 (5) Acute kidney injury ICD Codes: N17.9 - Acute kidney failure, unspecified SNOMED: 43573616 (6) Mass of right ovary ICD Codes: N83.9 - Noninflammatory disorder of ovary, fallopian tube and broad ligament, unspecified SNOMED: 573143380 (7) Altered mental status ICD Codes: R41.82 - Altered mental status, unspecified SNOMED: 225684415 (8) Hypernatremia ICD Codes: E87.0 - Hyperosmolality and hypernatremia SNOMED: 33459595 (9) Thrombocytopenia ICD Codes: D69.6 - Thrombocytopenia, unspecified SNOMED: 229435227 (10) Aspiration pneumonia ICD Codes: J69.0 - Pneumonitis due to inhalation of food and vomit SNOMED: 372006726 Plan: Awaiting disposition Replete K+ Subjective Allergies: Coded Allergies: UNABLE TO ASSESS (Unverified , 02/05/17) Subjective She is non verbal, no distress, no new change Objective Last 24 Hour Vital Signs Date Time Temp Pulse Resp B/P (MAP) Pulse Ox O2 Delivery O2 Flow Rate FiO2 03/01/17 20:39 95 Room Air 21 03/01/17 20:39 72 20 03/01/17 20:39 Room Air 21 03/01/17 20:00 97.0 57 20 134/70 97 Room Air 03/01/17 18:09 97.0 03/01/17 17:15 106/36 Room Air 03/01/17 16:00 97.0 68 20 137/103 93 03/01/17 11:32 98.2 59 14 128/79 97 Room Air 03/01/17 08:51 Room Air 03/01/17 08:18 97.7 63 16 135/79 93 03/01/17 07:42 Room Air 21 03/01/17 07:42 99 Room Air 21 03/01/17 04:00 97.1 68 18 155/90 90 03/01/17 00:00 98.0 66 19 136/84 96 Room Air Intake and Output 02/28/17 03/01/17 19:00 07:00 Intake Total 30 ml 580 ml Output Total 300 ml 650 ml Balance -270 ml -70 ml Free Water 250 ml Tube Feeding 30 ml 330 ml Output Urine Total 300 ml 650 ml # Voids 1 # Bowel Movements 1 1 Height (Feet): 5 Height (Inches): 5.00 Weight (Pounds): 120 General Appearance: WD/WN, no apparent distress EENT: PERRL/EOMI, normal ENT inspection Neck: non-tender, normal alignment, supple Cardiovascular: normal rate, regular rhythm, no JVD Respiratory/Chest: chest wall non-tender Abdomen: non tender, soft Neurologic: disoriented, aphasia ALEE GOULD Mar 01, 2017 20:58
[2017-03-02] VITALS: BP 145/83
[2017-03-02] MEDS: Acetaminophen 650mg/20.3ml GT PRN (03:19)
[2017-03-02 04:00] VITALS: BP 145/78
[2017-03-02] MEDS: NovoLOG Insulin Flexpen SUBQ SCH ×5 (05:36→23:46)
[2017-03-02 07:27] LABS: ANION GAP 7 mmol/L (5-15); BLOOD UREA NITROGEN 8 mg/dL (7-18); CALCIUM 8.8 MG/DL (8.5-10.1); CARBON DIOXIDE 26 MMOL/L (21-32); CHLORIDE 111 MMOL/L (98-107); CREATININE 0.6 MG/DL (0.55-1.30); SODIUM 144 MMOL/L (136-145)
[2017-03-02 07:28] LABS: BASOPHILS % (AUTO) 1.5 % (0.0-2.0); EOSINOPHILS % (AUTO) 2.1 % (0.0-3.0); HEMATOCRIT 36.3 % (37.0-47.0); HEMOGLOBIN 12.3 G/DL (12.0-16.0); LYMPHOCYTES % (AUTO) 21.5 % (20.0-45.0); MEAN CORPUSCULAR VOLUME 94 FL (80-99); MONOCYTES % (AUTO) 6.5 % (1.0-10.0); NEUTROPHILS % (AUTO) 68.5 % (45.0-75.0); PLATELET COUNT 399 K/UL (150-450); RED BLOOD COUNT 3.85 M/UL (4.20-5.40); RED CELL DISTRIBUTION WIDTH 12.2 % (11.6-14.8); WHITE BLOOD COUNT 8.1 K/UL (4.8-10.8)
[2017-03-02 08:29] VITALS: BP 151/86
[2017-03-02] MEDS: Enoxaparin 60mg Inj SUBQ SCH ×2 (09:17→20:22)
--- NOTE | 2017-03-02 10:34 | GI Progress Note ---
Assessment/Plan Problems: (1) Dehydration ICD Codes: E86.0 - Dehydration SNOMED: 51607210 (2) Severe sepsis ICD Codes: A41.9 - Sepsis, unspecified organism; R65.20 - Severe sepsis without septic shock SNOMED: 46496548 (3) Dysphagia ICD Codes: R13.10 - Dysphagia, unspecified SNOMED: 68736009, 215762784 Status: stable Status Narrative Discussed with Dr. Howard. Assessment/Plan SUMMARY OF FINDINGS: Status post successful PEG placement. RECOMMENDATIONS: okay for DC per GI standpoint 1. Abdominal binder. 2. Elevate the head of the bed at all times. 3. G-tube flush. 4. G-tube care. 5. GTFs per RD fu labs Subjective Subjective limited Objective Last 24 Hour Vital Signs Date Time Temp Pulse Resp B/P (MAP) Pulse Ox O2 Delivery O2 Flow Rate FiO2 03/02/17 08:29 97.7 71 20 151/86 98 03/02/17 07:42 Room Air 03/02/17 07:42 98 Room Air 21 03/02/17 04:00 97.2 73 20 145/78 98 Room Air 03/02/17 00:00 96.4 67 20 145/83 96 Room Air 03/01/17 20:39 95 Room Air 21 03/01/17 20:39 72 20 03/01/17 20:39 Room Air 21 03/01/17 20:00 97.0 57 20 134/70 97 Room Air 03/01/17 18:09 97.0 03/01/17 17:15 106/36 Room Air 03/01/17 16:00 97.0 68 20 137/103 93 03/01/17 11:32 98.2 59 14 128/79 97 Room Air Intake and Output 03/01/17 03/02/17 19:00 07:00 Intake Total 550 ml 750 ml Output Total 600 ml 500 ml Balance -50 ml 250 ml Free Water 120 ml 90 ml Tube Feeding 430 ml 660 ml Output Urine Total 600 ml 500 ml # Bowel Movements 2 3 Laboratory Tests Test 03/02/17 05:45 White Blood Count 8.1 K/UL (4.8-10.8) Red Blood Count 3.85 M/UL (4.20-5.40) L Hemoglobin 12.3 G/DL (12.0-16.0) Hematocrit 36.3 % (37.0-47.0) L Mean Corpuscular Volume 94 FL (80-99) Mean Corpuscular Hemoglobin 32.1 PG (27.0-31.0) H Mean Corpuscular Hemoglobin Concent 34.0 G/DL (32.0-36.0) Red Cell Distribution Width 12.2 % (11.6-14.8) Platelet Count 399 K/UL (150-450) Mean Platelet Volume 7.9 FL (6.5-10.1) Neutrophils (%) (Auto) 68.5 % (45.0-75.0) Lymphocytes (%) (Auto) 21.5 % (20.0-45.0) Monocytes (%) (Auto) 6.5 % (1.0-10.0) Eosinophils (%) (Auto) 2.1 % (0.0-3.0) Basophils (%) (Auto) 1.5 % (0.0-2.0) Sodium Level 144 MMOL/L (136-145) Potassium Level 3.0 MMOL/L (3.5-5.1) L Chloride Level 111 MMOL/L (98-107) H Carbon Dioxide Level 26 MMOL/L (21-32) Anion Gap 7 mmol/L (5-15) Blood Urea Nitrogen 8 mg/dL (7-18) Creatinine 0.6 MG/DL (0.55-1.30) Estimat Glomerular Filtration Rate > 60 mL/min (>60) Glucose Level 117 MG/DL (74-106) H Calcium Level 8.8 MG/DL (8.5-10.1) Height (Feet): 5 Height (Inches): 5.00 Weight (Pounds): 125 Abdominal Exam: GT site - c/d/i Vee Stock N.P. Mar 02, 2017 10:34
[2017-03-02 11:41] VITALS: BP 132/74
[2017-03-02 16:01] VITALS: BP 137/83
[2017-03-02 20:00] VITALS: BP 145/85
[2017-03-02] MEDS: Levemir Flexpen SUBQ SCH (20:21)
--- NOTE | 2017-03-02 22:45 | Progress Note ---
DATE: 03/02/2017 SUBJECTIVE: The patient is lying in bed, alert, but nonverbal. Glucose range between 101 and 124. OBJECTIVE: VITAL SIGNS: Stable. LUNGS: Clear. HEART: Regular rate and rhythm. ABDOMEN: Soft. EXTREMITIES: No edema. LABORATORY DATA: Pertinent labs show white count of 8.1, hemoglobin of 12.3, with a potassium of 3, sodium 144, and creatinine 0.6. IMPRESSION: 1. Status post gastrostomy tube. 2. Advanced dementia. 3. Pneumonia, clinically improved. 4. Decubitus, under care. 5. Diabetes, currently on insulin. PLAN: Continue current medications. We will complete her antibiotics. Shamar Vega M.D. DR: TRASHA JOB#: [id number] CC:
[2017-03-03] VITALS (7 sets, daily range): BP systolic 127–162; BP diastolic 65–98
[2017-03-03] MEDS: NovoLOG Insulin Flexpen SUBQ SCH ×3 (05:12→17:22)
[2017-03-03 07:58] LABS: BASOPHILS % (AUTO) 1.3 % (0.0-2.0); EOSINOPHILS % (AUTO) 1.9 % (0.0-3.0); HEMATOCRIT 36.9 % (37.0-47.0); HEMOGLOBIN 12.4 G/DL (12.0-16.0); LYMPHOCYTES % (AUTO) 26.7 % (20.0-45.0); MEAN CORPUSCULAR VOLUME 96 FL (80-99); MONOCYTES % (AUTO) 6.5 % (1.0-10.0); NEUTROPHILS % (AUTO) 63.7 % (45.0-75.0); PLATELET COUNT 404 K/UL (150-450); RED BLOOD COUNT 3.85 M/UL (4.20-5.40); RED CELL DISTRIBUTION WIDTH 12.6 % (11.6-14.8); WHITE BLOOD COUNT 9.1 K/UL (4.8-10.8)
[2017-03-03 08:09] LABS: ANION GAP 9 mmol/L (5-15); BLOOD UREA NITROGEN 9 mg/dL (7-18); CALCIUM 8.5 MG/DL (8.5-10.1); CARBON DIOXIDE 25 MMOL/L (21-32); CHLORIDE 112 MMOL/L (98-107); CREATININE 0.6 MG/DL (0.55-1.30); POTASSIUM 4.1 MMOL/L (3.5-5.1); SODIUM 146 MMOL/L (136-145)
--- NOTE | 2017-03-03 08:09 | General Progress Note ---
Assessment/Plan Problem List: (1) Severe sepsis ICD Codes: A41.9 - Sepsis, unspecified organism; R65.20 - Severe sepsis without septic shock SNOMED: 25537580 (2) Dehydration ICD Codes: E86.0 - Dehydration SNOMED: 62885871 (3) Hydronephrosis ICD Codes: N13.30 - Unspecified hydronephrosis SNOMED: 02660521 (4) Uremia ICD Codes: N19 - Unspecified kidney failure SNOMED: 16781227 (5) Acute kidney injury ICD Codes: N17.9 - Acute kidney failure, unspecified SNOMED: 22431113 (6) Mass of right ovary ICD Codes: N83.9 - Noninflammatory disorder of ovary, fallopian tube and broad ligament, unspecified SNOMED: 108853755 (7) Altered mental status ICD Codes: R41.82 - Altered mental status, unspecified SNOMED: 785925483 (8) Hypernatremia ICD Codes: E87.0 - Hyperosmolality and hypernatremia SNOMED: 13385654 (9) Thrombocytopenia ICD Codes: D69.6 - Thrombocytopenia, unspecified SNOMED: 446976732 (10) Aspiration pneumonia ICD Codes: J69.0 - Pneumonitis due to inhalation of food and vomit SNOMED: 333929362 Assessment/Plan remains confused, gt feed, dc antibiotics oral agents for dm Subjective ROS Limited/Unobtainable: Yes Allergies: Coded Allergies: UNABLE TO ASSESS (Unverified , 02/05/17) Subjective confused pulled out ng Objective Last 24 Hour Vital Signs Date Time Temp Pulse Resp B/P (MAP) Pulse Ox O2 Delivery O2 Flow Rate FiO2 03/03/17 07:49 97.7 98 21 150/75 95 Room Air 03/03/17 04:00 98.1 79 17 134/78 96 03/03/17 00:00 97.3 82 20 154/89 95 03/02/17 20:00 97.5 72 20 145/85 96 03/02/17 19:10 Room Air 21 03/02/17 19:10 96 Room Air 21 03/02/17 16:01 97.9 77 20 137/83 97 03/02/17 11:41 97.3 76 19 132/74 98 03/02/17 11:41 Room Air 03/02/17 08:29 Room Air 03/02/17 08:29 97.7 71 20 151/86 98 Intake and Output 03/02/17 03/03/17 19:00 07:00 Intake Total 780 ml 660 ml Output Total 400 ml 400 ml Balance 380 ml 260 ml Intake Oral 0 ml Free Water 180 ml 60 ml Tube Feeding 600 ml 600 ml Output Urine Total 400 ml 400 ml # Bowel Movements 4 3 Laboratory Tests 03/03/17 07:20: White Blood Count 9.1, Red Blood Count 3.85L, Hemoglobin 12.4, Hematocrit 36.9L , Mean Corpuscular Volume 96, Mean Corpuscular Hemoglobin 32.1H, Mean Corpuscular Hemoglobin Concent 33.5, Red Cell Distribution Width 12.6, Platelet Count 404, Mean Platelet Volume 7.3, Neutrophils (%) (Auto) 63.7, Lymphocytes (% ) (Auto) 26.7, Monocytes (%) (Auto) 6.5, Eosinophils (%) (Auto) 1.9, Basophils ( %) (Auto) 1.3, Sodium Level [Pending], Potassium Level [Pending], Chloride Level [Pending], Carbon Dioxide Level [Pending], Blood Urea Nitrogen [Pending], Creatinine [Pending], Estimat Glomerular Filtration Rate [Pending], Glucose Level [Pending], Calcium Level [Pending] Height (Feet): 5 Height (Inches): 5.00 Weight (Pounds): 126 General Appearance: no apparent distress, alert, confused EENT: normal ENT inspection Neck: normal alignment Cardiovascular: normal rate, regular rhythm Respiratory/Chest: lungs clear Abdomen: non tender, soft Edema: no edema noted Arm (L), no edema noted Arm (R), no edema noted Leg (L), no edema noted Leg (R), no edema noted Pedal (L), no edema noted Pedal (R), no edema noted Generalized Neurologic: disoriented BENOIT GIORDANO Mar 03, 2017 08:09
[2017-03-03] MEDS: metFORMIN 500mg tab GT SCH ×2 (08:54→17:21)
[2017-03-03] MEDS: Enoxaparin 60mg Inj SUBQ SCH ×2 (08:54→21:07)
--- NOTE | 2017-03-03 12:24 | GI Progress Note ---
Assessment/Plan Problems: (1) Dehydration ICD Codes: E86.0 - Dehydration SNOMED: 93587495 (2) Severe sepsis ICD Codes: A41.9 - Sepsis, unspecified organism; R65.20 - Severe sepsis without septic shock SNOMED: 81486662 (3) Dysphagia ICD Codes: R13.10 - Dysphagia, unspecified SNOMED: 26569945, 229102032 Status: stable Status Narrative Discussed with Dr. Howard. Assessment/Plan SUMMARY OF FINDINGS: Status post successful PEG placement. RECOMMENDATIONS: okay for DC per GI standpoint 1. Abdominal binder. 2. Elevate the head of the bed at all times. 3. G-tube flush. 4. G-tube care. 5. GTFs per RD fu labs Subjective Subjective limited Objective Last 24 Hour Vital Signs Date Time Temp Pulse Resp B/P (MAP) Pulse Ox O2 Delivery O2 Flow Rate FiO2 03/03/17 11:48 98.8 94 22 135/72 97 Room Air 03/03/17 07:49 97.7 98 21 150/75 95 Room Air 03/03/17 04:00 98.1 79 17 134/78 96 03/03/17 00:00 97.3 82 20 154/89 95 03/02/17 20:00 97.5 72 20 145/85 96 03/02/17 19:10 Room Air 21 03/02/17 19:10 96 Room Air 21 03/02/17 16:01 97.9 77 20 137/83 97 Intake and Output 03/02/17 03/03/17 19:00 07:00 Intake Total 780 ml 660 ml Output Total 400 ml 400 ml Balance 380 ml 260 ml Intake Oral 0 ml Free Water 180 ml 60 ml Tube Feeding 600 ml 600 ml Output Urine Total 400 ml 400 ml # Bowel Movements 4 3 Laboratory Tests Test 03/03/17 07:20 White Blood Count 9.1 K/UL (4.8-10.8) Red Blood Count 3.85 M/UL (4.20-5.40) L Hemoglobin 12.4 G/DL (12.0-16.0) Hematocrit 36.9 % (37.0-47.0) L Mean Corpuscular Volume 96 FL (80-99) Mean Corpuscular Hemoglobin 32.1 PG (27.0-31.0) H Mean Corpuscular Hemoglobin Concent 33.5 G/DL (32.0-36.0) Red Cell Distribution Width 12.6 % (11.6-14.8) Platelet Count 404 K/UL (150-450) Mean Platelet Volume 7.3 FL (6.5-10.1) Neutrophils (%) (Auto) 63.7 % (45.0-75.0) Lymphocytes (%) (Auto) 26.7 % (20.0-45.0) Monocytes (%) (Auto) 6.5 % (1.0-10.0) Eosinophils (%) (Auto) 1.9 % (0.0-3.0) Basophils (%) (Auto) 1.3 % (0.0-2.0) Sodium Level 146 MMOL/L (136-145) H Potassium Level 4.1 MMOL/L (3.5-5.1) Chloride Level 112 MMOL/L (98-107) H Carbon Dioxide Level 25 MMOL/L (21-32) Anion Gap 9 mmol/L (5-15) Blood Urea Nitrogen 9 mg/dL (7-18) Creatinine 0.6 MG/DL (0.55-1.30) Estimat Glomerular Filtration Rate > 60 mL/min (>60) Glucose Level 120 MG/DL (74-106) H Calcium Level 8.5 MG/DL (8.5-10.1) Height (Feet): 5 Height (Inches): 5.00 Weight (Pounds): 126 General Appearance: alert Cardiovascular: normal rate Abdominal Exam: soft, GT site - c/d/i Vee Stock N.P. Mar 03, 2017 12:24
--- NOTE | 2017-03-03 13:21 | Wound Nurse Progress Note ---
Wound RN Progress Note Wound Consult reassessment- noted good progress upon reassessment , no further deterioration present to wound sites. continue wound care as recommended, continue to turn and reposition and offload affected areas. #1 Left lower back pressure ulcer unstageable noted improving to surrounding tissue however wound bed is necrotic. remains dry. no change in size noted, noted decrease in drainage.no redness present to surrounding tissue #2 Left and right upper back scattered sDTI pressure ulcer. Skin intact- resolved. #3 Left heel suspected deep tissue injury, pt has history of stage 1 to site.- remains as DTI intact dry, resolving #4 Left buttock stage I pressure ulcer. Resolved #5 Right heel stage I pressure ulcer. Resolved #6 Chemical burn on perineal area. Good progress noted at this time. #7 Right trochanter DTI pressure ulcer. Resolved. #8 Mid sacral deep tissue injury, (linear) - site remains as DTI noted decrease in size resolving remains dry skin is intact. no further deterioration present.4.5cmx0.5cm #9 right top of ear stage 1 redness - provide cushion to area around 02 cannula - resolved. #10 perianal chemical burn with erosion.- recommendation- cleanse with soap and water pat dry, apply triad bid and prn if soiled/dislodged. Recommendation -Local wound care per protocol -Keep clean and dry -Turn and reposition -Optimize nutrition -Offload both heels -Heel protector on both heels -Low air loss mattress -Assess and f/u accordingly for any changes JASON DELUNA Mar 03, 2017 13:21
--- NOTE | 2017-03-03 13:29 | Wound Care Consultation ---
Wound Assessment Wound Assessment : Wound Number: 1 Wound Present on Admission: No New Wound: Yes Status Change of Wound: No Wound Location Body Site: perianal Wound Type: chemical burn - with erosion Anali Test: Does not Anali Wound Thickness: Partial Thickness Percent of Wound [place]/Red: 100 - scattered Wound Drainage Amount: None Wound Drainage Odor: None/Absent Tissue Surrounding Wound: Macerated Wound General Appearance: Reddened Wound Comment #1 perianal chemical burn with erosion. recommendation- cleanse with soap and water pat dry, apply triad bid and prn if soiled/dislodged. - keep clean and dry - turn and reposition. -Optimize nutrition. -offload area. -Assess and notify MD for any changes of condition to skin noted. JASON DELUNA Mar 03, 2017 13:29
[2017-03-03] MEDS ORDERED: NS 500ML ONE (17:19)
[2017-03-03] MEDS: Acetaminophen 650mg/20.3ml GT PRN (17:22)
[2017-03-04] VITALS: BP 157/92
[2017-03-04 04:00] VITALS: BP 142/76
[2017-03-04] MEDS: NovoLOG Insulin Flexpen SUBQ SCH ×5 (06:22→23:52)
[2017-03-04 07:55] LABS: BASOPHILS % (AUTO) 0.8 % (0.0-2.0); EOSINOPHILS % (AUTO) 1.2 % (0.0-3.0); HEMATOCRIT 38.2 % (37.0-47.0); HEMOGLOBIN 12.8 G/DL (12.0-16.0); LYMPHOCYTES % (AUTO) 13.2 % (20.0-45.0); MEAN CORPUSCULAR VOLUME 97 FL (80-99); MONOCYTES % (AUTO) 3.8 % (1.0-10.0); PLATELET COUNT 447 K/UL (150-450); RED BLOOD COUNT 3.95 M/UL (4.20-5.40); RED CELL DISTRIBUTION WIDTH 12.9 % (11.6-14.8); WHITE BLOOD COUNT 17.4 K/UL (4.8-10.8)
[2017-03-04 08:05] VITALS: BP 124/86
[2017-03-04 08:14] LABS: ANION GAP 6 mmol/L (5-15); BLOOD UREA NITROGEN 10 mg/dL (7-18); CARBON DIOXIDE 28 MMOL/L (21-32); CHLORIDE 112 MMOL/L (98-107); CREATININE 0.6 MG/DL (0.55-1.30); POTASSIUM 4.2 MMOL/L (3.5-5.1); SODIUM 146 MMOL/L (136-145)
[2017-03-04] MEDS: metFORMIN 500mg tab GT SCH ×2 (08:16→18:09)
[2017-03-04] MEDS: Enoxaparin 60mg Inj SUBQ SCH ×2 (08:18→20:34)
--- NOTE | 2017-03-04 10:50 | GI Progress Note ---
Assessment/Plan Problems: (1) Dehydration ICD Codes: E86.0 - Dehydration SNOMED: 15830360 (2) Severe sepsis ICD Codes: A41.9 - Sepsis, unspecified organism; R65.20 - Severe sepsis without septic shock SNOMED: 69356562 (3) Dysphagia ICD Codes: R13.10 - Dysphagia, unspecified SNOMED: 58258167, 348131878 Status: stable Status Narrative Discussed with Dr. Howard. Assessment/Plan SUMMARY OF FINDINGS: Status post successful PEG placement. RECOMMENDATIONS: okay for DC per GI standpoint 1. Abdominal binder. 2. Elevate the head of the bed at all times. 3. G-tube flush. 4. G-tube care. 5. GTFs per RD fu labs Subjective Subjective limited Objective Last 24 Hour Vital Signs Date Time Temp Pulse Resp B/P (MAP) Pulse Ox O2 Delivery O2 Flow Rate FiO2 03/04/17 08:05 98.0 94 18 124/86 97 Nasal Cannula 2.0 03/04/17 04:00 97.3 81 20 142/76 99 03/04/17 00:00 97.4 82 20 157/92 100 03/03/17 20:00 97.9 76 19 162/98 95 03/03/17 16:00 97.8 72 19 127/65 94 03/03/17 11:48 98.8 94 22 135/72 97 Room Air Intake and Output 03/03/17 03/04/17 19:00 07:00 Intake Total 180 ml Output Total 400 ml 400 ml Balance -220 ml -400 ml Free Water 180 ml Output Urine Total 400 ml 400 ml # Bowel Movements 3 1 Laboratory Tests Test 03/04/17 07:05 White Blood Count 17.4 K/UL (4.8-10.8) #H Red Blood Count 3.95 M/UL (4.20-5.40) L Hemoglobin 12.8 G/DL (12.0-16.0) Hematocrit 38.2 % (37.0-47.0) Mean Corpuscular Volume 97 FL (80-99) Mean Corpuscular Hemoglobin 32.5 PG (27.0-31.0) H Mean Corpuscular Hemoglobin Concent 33.6 G/DL (32.0-36.0) Red Cell Distribution Width 12.9 % (11.6-14.8) Platelet Count 447 K/UL (150-450) Mean Platelet Volume 7.3 FL (6.5-10.1) Neutrophils (%) (Auto) 81.0 % (45.0-75.0) H Lymphocytes (%) (Auto) 13.2 % (20.0-45.0) L Monocytes (%) (Auto) 3.8 % (1.0-10.0) Eosinophils (%) (Auto) 1.2 % (0.0-3.0) Basophils (%) (Auto) 0.8 % (0.0-2.0) Sodium Level 146 MMOL/L (136-145) H Potassium Level 4.2 MMOL/L (3.5-5.1) Chloride Level 112 MMOL/L (98-107) H Carbon Dioxide Level 28 MMOL/L (21-32) Anion Gap 6 mmol/L (5-15) Blood Urea Nitrogen 10 mg/dL (7-18) Creatinine 0.6 MG/DL (0.55-1.30) Estimat Glomerular Filtration Rate > 60 mL/min (>60) Glucose Level 118 MG/DL (74-106) H Calcium Level 9.0 MG/DL (8.5-10.1) Height (Feet): 5 Height (Inches): 5.00 Weight (Pounds): 117 General Appearance: alert, confused Cardiovascular: normal rate Respiratory/Chest: normal breath sounds Abdominal Exam: no mass, GT site - c/d/i Vee Stock N.P. Mar 04, 2017 10:50
[2017-03-04 11:48] VITALS: BP 138/91
--- NOTE | 2017-03-04 14:11 | General Progress Note ---
Assessment/Plan Problem List: (1) Severe sepsis ICD Codes: A41.9 - Sepsis, unspecified organism; R65.20 - Severe sepsis without septic shock SNOMED: 43781606 (2) Dehydration ICD Codes: E86.0 - Dehydration SNOMED: 18561135 (3) Hydronephrosis ICD Codes: N13.30 - Unspecified hydronephrosis SNOMED: 85993568 (4) Uremia ICD Codes: N19 - Unspecified kidney failure SNOMED: 14519375 (5) Acute kidney injury ICD Codes: N17.9 - Acute kidney failure, unspecified SNOMED: 76230507 (6) Mass of right ovary ICD Codes: N83.9 - Noninflammatory disorder of ovary, fallopian tube and broad ligament, unspecified SNOMED: 915857249 (7) Altered mental status ICD Codes: R41.82 - Altered mental status, unspecified SNOMED: 054905381 (8) Hypernatremia ICD Codes: E87.0 - Hyperosmolality and hypernatremia SNOMED: 26938224 (9) Thrombocytopenia ICD Codes: D69.6 - Thrombocytopenia, unspecified SNOMED: 424647278 (10) Aspiration pneumonia ICD Codes: J69.0 - Pneumonitis due to inhalation of food and vomit SNOMED: 750353756 Assessment/Plan remains confused, gt feed, dc antibiotics oral agents for dm,try dc rod Subjective ROS Limited/Unobtainable: Yes Allergies: Coded Allergies: UNABLE TO ASSESS (Unverified , 02/05/17) Subjective confused pulled out ng Objective Last 24 Hour Vital Signs Date Time Temp Pulse Resp B/P (MAP) Pulse Ox O2 Delivery O2 Flow Rate FiO2 03/04/17 11:48 97.4 94 19 138/91 97 Room Air 03/04/17 08:05 98.0 94 18 124/86 97 Nasal Cannula 2.0 03/04/17 04:00 97.3 81 20 142/76 99 03/04/17 00:00 97.4 82 20 157/92 100 03/03/17 20:00 97.9 76 19 162/98 95 03/03/17 16:00 97.8 72 19 127/65 94 Intake and Output 03/03/17 03/04/17 19:00 07:00 Intake Total 180 ml Output Total 400 ml 400 ml Balance -220 ml -400 ml Free Water 180 ml Output Urine Total 400 ml 400 ml # Bowel Movements 3 1 Laboratory Tests 03/04/17 07:05: White Blood Count 17.4#H, Red Blood Count 3.95L, Hemoglobin 12.8, Hematocrit 38.2, Mean Corpuscular Volume 97, Mean Corpuscular Hemoglobin 32.5H, Mean Corpuscular Hemoglobin Concent 33.6, Red Cell Distribution Width 12.9, Platelet Count 447, Mean Platelet Volume 7.3, Neutrophils (%) (Auto) 81.0H, Lymphocytes ( %) (Auto) 13.2L, Monocytes (%) (Auto) 3.8, Eosinophils (%) (Auto) 1.2, Basophils (%) (Auto) 0.8, Sodium Level 146H, Potassium Level 4.2, Chloride Level 112H, Carbon Dioxide Level 28, Anion Gap 6, Blood Urea Nitrogen 10, Creatinine 0.6, Estimat Glomerular Filtration Rate > 60, Glucose Level 118H, Calcium Level 9.0 Height (Feet): 5 Height (Inches): 5.00 Weight (Pounds): 117 General Appearance: no apparent distress, confused EENT: normal ENT inspection Neck: normal alignment Cardiovascular: regular rhythm Respiratory/Chest: lungs clear Abdomen: non tender, soft Edema: no edema noted Arm (L), no edema noted Arm (R), no edema noted Leg (L), no edema noted Leg (R), no edema noted Pedal (L), no edema noted Pedal (R), no edema noted Generalized Neurologic: disoriented BENOIT GIORDANO Mar 04, 2017 14:11
[2017-03-04 15:56] VITALS: BP 125/86
[2017-03-04 17:25] LABS: APPEARANCE,URINE SLIGHTLY CLOUDY; BILIRUBIN, URINE NEGATIVE (NEGATIVE); GLUCOSE, URINE (UA) NEGATIVE (NEGATIVE); KETONES,URINE NEGATIVE (NEGATIVE); LEUKOCYTE ESTERASE ,URINE 2+ (NEGATIVE); NITRITE,URINE NEGATIVE (NEGATIVE); PH,URINE 5 (4.5-8.0); PROTEIN,URINE 2+ (NEGATIVE); UROBILINOGEN,URINE NORMAL MG/DL (0.0-1.0)
[2017-03-04 17:27] LABS: COLOR,URINE YELLOW
[2017-03-04] MEDS: Lomotil 2.5mg tab GT PRN ×2 (18:10→23:52)
[2017-03-04 20:00] VITALS: BP_SYST 159; BP_SYST 176; BP_DIAS 74; BP_DIAS 91
[2017-03-05] VITALS (7 sets, daily range): BP systolic 129–163; BP diastolic 59–100
[2017-03-05] MEDS: NovoLOG Insulin Flexpen SUBQ SCH ×3 (05:52→18:00)
[2017-03-05 06:31] LABS: BASOPHILS % (AUTO) 0.9 % (0.0-2.0); EOSINOPHILS % (AUTO) 1.4 % (0.0-3.0); HEMATOCRIT 38.3 % (37.0-47.0); HEMOGLOBIN 12.7 G/DL (12.0-16.0); LYMPHOCYTES % (AUTO) 16.4 % (20.0-45.0); MEAN CORPUSCULAR VOLUME 97 FL (80-99); MONOCYTES % (AUTO) 5.1 % (1.0-10.0); NEUTROPHILS % (AUTO) 76.2 % (45.0-75.0); PLATELET COUNT 443 K/UL (150-450); RED BLOOD COUNT 3.95 M/UL (4.20-5.40); RED CELL DISTRIBUTION WIDTH 13.1 % (11.6-14.8); WHITE BLOOD COUNT 15.2 K/UL (4.8-10.8)
[2017-03-05 07:15] LABS: ANION GAP 7 mmol/L (5-15); BLOOD UREA NITROGEN 12 mg/dL (7-18); CALCIUM 9.2 MG/DL (8.5-10.1); CARBON DIOXIDE 27 MMOL/L (21-32); CHLORIDE 112 MMOL/L (98-107); CREATININE 0.6 MG/DL (0.55-1.30); POTASSIUM 5.1 MMOL/L (3.5-5.1); SODIUM 146 MMOL/L (136-145)
[2017-03-05] MEDS: metFORMIN 500mg tab GT SCH ×2 (09:15→18:19)
[2017-03-05] MEDS: Enoxaparin 60mg Inj SUBQ SCH ×2 (09:16→20:26)
--- NOTE | 2017-03-05 11:50 | GI Progress Note ---
Assessment/Plan Problems: (1) Dehydration ICD Codes: E86.0 - Dehydration SNOMED: 66909260 (2) Severe sepsis ICD Codes: A41.9 - Sepsis, unspecified organism; R65.20 - Severe sepsis without septic shock SNOMED: 69642681 (3) Dysphagia ICD Codes: R13.10 - Dysphagia, unspecified SNOMED: 95897589, 194103077 Status: stable Status Narrative Discussed with Dr. Howard. Assessment/Plan SUMMARY OF FINDINGS: Status post successful PEG placement. RECOMMENDATIONS: okay for DC per GI standpoint 1. Abdominal binder. 2. Elevate the head of the bed at all times. 3. G-tube flush. 4. G-tube care. 5. GTFs per RD fu labs Subjective Subjective limited Objective Last 24 Hour Vital Signs Date Time Temp Pulse Resp B/P (MAP) Pulse Ox O2 Delivery O2 Flow Rate FiO2 03/05/17 08:00 97.7 79 20 155/100 93 03/05/17 04:00 97.0 86 20 151/90 97 Room Air 03/05/17 00:00 97.0 90 20 150/90 100 Room Air 03/04/17 20:00 99.8 113 20 159/74 96 Room Air 03/04/17 15:56 Room Air 03/04/17 15:56 97.7 74 19 125/86 99 Intake and Output 03/04/17 03/05/17 19:00 07:00 Intake Total 980 ml 1020 ml Output Total 800 ml 550 ml Balance 180 ml 470 ml Free Water 260 ml 300 ml Tube Feeding 720 ml 720 ml Output Urine Total 800 ml 550 ml # Bowel Movements 3 1 Laboratory Tests Test 03/04/17 16:05 03/05/17 05:30 Urine Color Yellow Urine Appearance Slightly cloudy Urine pH 5 (4.5-8.0) Urine Specific [place] 1.010 (1.005-1.035) Urine Protein 2+ (NEGATIVE) H Urine Glucose (UA) Negative (NEGATIVE) Urine Ketones Negative (NEGATIVE) Urine Occult Blood 5+ (NEGATIVE) H Urine Nitrite Negative (NEGATIVE) Urine Bilirubin Negative (NEGATIVE) Urine Urobilinogen Normal MG/DL (0.0-1.0) Urine Leukocyte Esterase 2+ (NEGATIVE) H Urine RBC 2-4 /HPF (0 - 2) H Urine WBC 5-10 /HPF (0 - 2) H Urine Squamous Epithelial Cells Few /LPF (NONE/OCC) Urine Bacteria Moderate /HPF (NONE) H Urine Yeast Many /HPF (NONE) H White Blood Count 15.2 K/UL (4.8-10.8) H Red Blood Count 3.95 M/UL (4.20-5.40) L Hemoglobin 12.7 G/DL (12.0-16.0) Hematocrit 38.3 % (37.0-47.0) Mean Corpuscular Volume 97 FL (80-99) Mean Corpuscular Hemoglobin 32.2 PG (27.0-31.0) H Mean Corpuscular Hemoglobin Concent 33.1 G/DL (32.0-36.0) Red Cell Distribution Width 13.1 % (11.6-14.8) Platelet Count 443 K/UL (150-450) Mean Platelet Volume 7.5 FL (6.5-10.1) Neutrophils (%) (Auto) 76.2 % (45.0-75.0) H Lymphocytes (%) (Auto) 16.4 % (20.0-45.0) L Monocytes (%) (Auto) 5.1 % (1.0-10.0) Eosinophils (%) (Auto) 1.4 % (0.0-3.0) Basophils (%) (Auto) 0.9 % (0.0-2.0) Sodium Level 146 MMOL/L (136-145) H Potassium Level 5.1 MMOL/L (3.5-5.1) Chloride Level 112 MMOL/L (98-107) H Carbon Dioxide Level 27 MMOL/L (21-32) Anion Gap 7 mmol/L (5-15) Blood Urea Nitrogen 12 mg/dL (7-18) Creatinine 0.6 MG/DL (0.55-1.30) Estimat Glomerular Filtration Rate > 60 mL/min (>60) Glucose Level 110 MG/DL (74-106) H Calcium Level 9.2 MG/DL (8.5-10.1) Microbiology Date/Time Source Procedure Growth Status 03/04/17 16:05 Indwelling Cath Urine Culture - Preliminary Resulted Height (Feet): 5 Height (Inches): 5.00 Weight (Pounds): 120 General Appearance: alert Cardiovascular: normal rate Respiratory/Chest: no respiratory distress Abdominal Exam: GT site - c/d/i Vee Stock N.P. Mar 05, 2017 11:50
[2017-03-05] MEDS: Lomotil 2.5mg tab GT PRN (13:05)
[2017-03-05] MEDS ORDERED: FLAGYL500 MG ORAL (16:04)
[2017-03-05] MEDS ORDERED: LOVENOX10 M1 SUBQ (16:04)
[2017-03-05] MEDS ORDERED: IMODIUM2 MG/10 ML GT (16:04)
[2017-03-05] MEDS ORDERED: NOVOLOG100 UNITS1 SUBQ (16:04)
[2017-03-05] MEDS ORDERED: GLUCOPHAGE500 MG GT (16:04)
[2017-03-05] MEDS ORDERED: LANSOPRAZOLE30 MG GT (16:04)
[2017-03-05] MEDS: metroNIDAZOLE 500mg tab ORAL SCH ×2 (16:10→20:25)
[2017-03-06] VITALS: BP 144/86
[2017-03-06] MEDS: NovoLOG Insulin Flexpen SUBQ SCH ×4 (00:19→18:00)
--- NOTE | 2017-03-06 01:30 | Discharge Summary ---
DATE OF ADMISSION: 02/05/2017 DATE OF DISCHARGE: 03/09/2017 PERTINENT HISTORY: The patient is a -[id number]-mqj lady who had altered level of consciousness and hypotension, brought to the hospital by EMS. She could not give any history. She was hypotensive, hypothermic, given fluids, cultured, and sent to the intensive care unit. PERTINENT PHYSICAL FINDINGS: HEAD, EYES, EARS, NOSE, AND THROAT: She keeps her eyes closed. Oral mucosa dry. NECK: No adenopathy. LUNGS: Clear. HEART: Regular rhythm. ABDOMEN: Soft without organomegaly. EXTREMITIES: No edema. NEUROLOGIC: She is nonverbal. She moves all extremities to irritative stimuli. 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 She had acute kidney injury, hypernatremia, dehydration, elevated liver enzymes, and rhabdomyolysis. The patient was cultured and treated for sepsis and had enterococcal sepsis. Her acute kidney failure resolved with fluids and treatment of her sepsis and septic shock. She had severe hyperglycemia and required insulin and titration of insulin. The patient was not able to swallow. After being seen by Speech Therapy, a gastrostomy was placed. She had severe thrombocytopenia resolved with nonspecific therapy, likely was a manifestation for sepsis. The patient's laboratory improved with treatment of sepsis. She had CA-125 at 17.4, which is in the reference range. She was seen by boom stick man and multiple specialists. She developed pneumonia likely aspiration pneumonia, which has improved with antibiotic therapy. She had mild fluid overload and was diuresed. The patient gradually improved from all parameters. On the day of discharge, she was alert, responsive, but disoriented and really nonverbal and bedridden. HEAD, EYES, EARS, NOSE, AND THROAT: Unremarkable. LUNGS: Clear. HEART: Regular rhythm. ABDOMEN: Soft. EXTREMITIES: No edema. Her electrolytes were normal. Her glucose was controlled and she was discharged to an [facility] in stable condition. FINAL DIAGNOSES: 1. Enterococcal sepsis. 2. Acute kidney injury. 3. Septic shock. 4. Dehydration. 5. Adult onset diabetes with hyperglycemia. 6. Altered mental status, likely chronic dementia. 7. Probable history of alcoholism. 8. Cystic pelvic mass. 9. Hydronephrosis. 10. Hypothermia. 11. Debility. 12. Pressure sores, improved with treatment. 13. Nonambulatory. 14. History of urinary retention. DISCHARGE DISPOSITION: She is discharged to a skilled facility with tube feedings and medications per the discharge medication list. She will be followed up by the physician assigned by the facility. Shamar Vega M.D. DR: TARSHA JOB#: [id number] CC: CHELO
[2017-03-06 04:19] VITALS: BP 135/81
[2017-03-06] MEDS: metroNIDAZOLE 500mg tab ORAL SCH (05:48)
[2017-03-06 06:51] LABS: ANION GAP 6 mmol/L (5-15); BLOOD UREA NITROGEN 14 mg/dL (7-18); CARBON DIOXIDE 28 MMOL/L (21-32); CHLORIDE 110 MMOL/L (98-107); CREATININE 0.6 MG/DL (0.55-1.30); POTASSIUM 4.1 MMOL/L (3.5-5.1); SODIUM 144 MMOL/L (136-145)
[2017-03-06 06:56] LABS: BASOPHILS % (AUTO) 0.9 % (0.0-2.0); EOSINOPHILS % (AUTO) 1.5 % (0.0-3.0); HEMATOCRIT 35.3 % (37.0-47.0); LYMPHOCYTES % (AUTO) 16.8 % (20.0-45.0); MEAN CORPUSCULAR VOLUME 94 FL (80-99); MONOCYTES % (AUTO) 5.3 % (1.0-10.0); NEUTROPHILS % (AUTO) 75.4 % (45.0-75.0); PLATELET COUNT 397 K/UL (150-450); RED BLOOD COUNT 3.75 M/UL (4.20-5.40); RED CELL DISTRIBUTION WIDTH 12.6 % (11.6-14.8); WHITE BLOOD COUNT 14.3 K/UL (4.8-10.8)
[2017-03-06 08:00] VITALS: BP 171/105
[2017-03-06] MEDS: Enoxaparin 60mg Inj SUBQ SCH ×2 (08:40→22:12)
[2017-03-06] MEDS: metFORMIN 500mg tab GT SCH ×2 (08:44→18:08)
[2017-03-06 12:00] VITALS: BP 153/87
--- NOTE | 2017-03-06 13:31 | General Progress Note ---
Assessment/Plan Problem List: (1) Severe sepsis ICD Codes: A41.9 - Sepsis, unspecified organism; R65.20 - Severe sepsis without septic shock SNOMED: 28610506 (2) Dehydration ICD Codes: E86.0 - Dehydration SNOMED: 01336453 (3) Hydronephrosis ICD Codes: N13.30 - Unspecified hydronephrosis SNOMED: 40661609 (4) Uremia ICD Codes: N19 - Unspecified kidney failure SNOMED: 49147863 (5) Acute kidney injury ICD Codes: N17.9 - Acute kidney failure, unspecified SNOMED: 08235061 (6) Mass of right ovary ICD Codes: N83.9 - Noninflammatory disorder of ovary, fallopian tube and broad ligament, unspecified SNOMED: 919916032 (7) Altered mental status ICD Codes: R41.82 - Altered mental status, unspecified SNOMED: 403037630 (8) Hypernatremia ICD Codes: E87.0 - Hyperosmolality and hypernatremia SNOMED: 52537579 (9) Thrombocytopenia ICD Codes: D69.6 - Thrombocytopenia, unspecified SNOMED: 288720396 (10) Aspiration pneumonia ICD Codes: J69.0 - Pneumonitis due to inhalation of food and vomit SNOMED: 766029380 Assessment/Plan remains confused, gt feed, dc antibiotics oral agents for dm, dc rod, given flagyl for diarrrhea to stop as c diff, neg, diflucan for yeasturia, discharge dictated 03/05 and I saw her 03/05 but dc delayed per facility Subjective ROS Limited/Unobtainable: Yes Allergies: Coded Allergies: UNABLE TO ASSESS (Unverified , 02/05/17) Subjective confused pulled out ng Objective Last 24 Hour Vital Signs Date Time Temp Pulse Resp B/P (MAP) Pulse Ox O2 Delivery O2 Flow Rate FiO2 03/06/17 12:00 97.3 80 20 153/87 100 03/06/17 08:00 97.7 89 20 171/105 91 03/06/17 04:19 97.0 83 20 135/81 97 03/06/17 04:00 Nasal Cannula 2.0 03/06/17 00:00 95.7 94 20 144/86 94 03/05/17 20:00 97.3 98 20 142/87 96 03/05/17 18:00 97 133/90 03/05/17 16:00 97.7 99 20 163/86 96 Intake and Output 03/05/17 03/06/17 19:00 07:00 Intake Total 850 ml 780 ml Balance 850 ml 780 ml Free Water 190 ml 120 ml Tube Feeding 660 ml 660 ml # Voids 2 # Bowel Movements 2 3 Laboratory Tests 03/06/17 05:15: White Blood Count 14.3H, Red Blood Count 3.75L, Hemoglobin 12.0, Hematocrit 35.3L, Mean Corpuscular Volume 94, Mean Corpuscular Hemoglobin 32.0H, Mean Corpuscular Hemoglobin Concent 34.0, Red Cell Distribution Width 12.6, Platelet Count 397, Mean Platelet Volume 7.8, Neutrophils (%) (Auto) 75.4H, Lymphocytes ( %) (Auto) 16.8L, Monocytes (%) (Auto) 5.3, Eosinophils (%) (Auto) 1.5, Basophils (%) (Auto) 0.9, Sodium Level 144, Potassium Level 4.1, Chloride Level 110H, Carbon Dioxide Level 28, Anion Gap 6, Blood Urea Nitrogen 14, Creatinine 0.6, Estimat Glomerular Filtration Rate > 60, Glucose Level 110H, Calcium Level 9.0 Height (Feet): 5 Height (Inches): 5.00 Weight (Pounds): 109 General Appearance: no apparent distress, alert, confused EENT: normal ENT inspection Neck: normal alignment Cardiovascular: normal rate Respiratory/Chest: lungs clear, normal breath sounds Abdomen: non tender, soft Edema: no edema noted Arm (L), no edema noted Arm (R), no edema noted Leg (L), no edema noted Leg (R), no edema noted Pedal (L), no edema noted Pedal (R), no edema noted Generalized Neurologic: disoriented BENOIT GIORDANO Mar 06, 2017 13:31
[2017-03-06] MEDS: Fluconazole 100mg tab ORAL SCH (13:42)
[2017-03-06 16:47] VITALS: BP 167/80
[2017-03-06 20:00] VITALS: BP 156/97
[2017-03-07] VITALS (7 sets, daily range): BP systolic 143–173; BP diastolic 81–97
[2017-03-07] MEDS: NovoLOG Insulin Flexpen SUBQ SCH ×5 (06:00→23:02)
[2017-03-07] MEDS: metFORMIN 500mg tab GT SCH ×2 (09:26→17:41)
[2017-03-07] MEDS: Fluconazole 100mg tab ORAL SCH (09:26)
[2017-03-07] MEDS: Enoxaparin 60mg Inj SUBQ SCH ×2 (09:32→20:05)
--- NOTE | 2017-03-07 13:12 | General Progress Note ---
Assessment/Plan Problem List: (1) Severe sepsis ICD Codes: A41.9 - Sepsis, unspecified organism; R65.20 - Severe sepsis without septic shock SNOMED: 54571064 (2) Dehydration ICD Codes: E86.0 - Dehydration SNOMED: 58296999 (3) Hydronephrosis ICD Codes: N13.30 - Unspecified hydronephrosis SNOMED: 63851944 (4) Uremia ICD Codes: N19 - Unspecified kidney failure SNOMED: 15544460 (5) Acute kidney injury ICD Codes: N17.9 - Acute kidney failure, unspecified SNOMED: 36756273 (6) Mass of right ovary ICD Codes: N83.9 - Noninflammatory disorder of ovary, fallopian tube and broad ligament, unspecified SNOMED: 349996830 (7) Altered mental status ICD Codes: R41.82 - Altered mental status, unspecified SNOMED: 751834478 (8) Hypernatremia ICD Codes: E87.0 - Hyperosmolality and hypernatremia SNOMED: 48140623 (9) Thrombocytopenia ICD Codes: D69.6 - Thrombocytopenia, unspecified SNOMED: 962093605 (10) Aspiration pneumonia ICD Codes: J69.0 - Pneumonitis due to inhalation of food and vomit SNOMED: 269265665 Assessment/Plan remains confused, gt feed, dc antibiotics oral agents for dm, dc rod, given flagyl for diarrrhea to stop as c diff, neg, diflucan for yeasturia, discharge dictated 03/05 and I saw her 03/05 but dc delayed per facility, amlodipine for bp Subjective ROS Limited/Unobtainable: Yes Allergies: Coded Allergies: UNABLE TO ASSESS (Unverified , 02/05/17) Subjective confused pulled out ng Objective Last 24 Hour Vital Signs Date Time Temp Pulse Resp B/P (MAP) Pulse Ox O2 Delivery O2 Flow Rate FiO2 03/07/17 11:49 98.2 88 21 169/92 96 03/07/17 08:29 98.1 90 21 143/93 96 03/07/17 04:30 157/82 03/07/17 04:00 97.5 52 21 173/94 80 03/07/17 00:00 97.5 93 20 149/87 97 03/06/17 20:00 97.4 93 20 156/97 98 03/06/17 16:47 97.5 89 20 167/80 100 Intake and Output 03/06/17 03/07/17 19:00 07:00 Intake Total 980 ml 700 ml Balance 980 ml 700 ml Free Water 320 ml 100 ml Tube Feeding 660 ml 600 ml # Voids 3 3 # Bowel Movements 3 3 Height (Feet): 5 Height (Inches): 5.00 Weight (Pounds): 124 General Appearance: alert, confused EENT: normal ENT inspection Neck: normal alignment Cardiovascular: normal rate, regular rhythm Respiratory/Chest: lungs clear Abdomen: non tender, soft Edema: no edema noted Arm (L), no edema noted Arm (R), no edema noted Leg (L), no edema noted Leg (R), no edema noted Pedal (L), no edema noted Pedal (R), no edema noted Generalized Neurologic: disoriented BENOIT GIORDANO Mar 07, 2017 13:12
[2017-03-07] MEDS: Acetaminophen 650mg/20.3ml GT PRN ×2 (18:13→22:58)
--- NOTE | 2017-03-07 20:33 | Diagnostic Imaging Report ---
APPROVED REPORT CPT Code: 05836 Present Symptoms Lower Extremity Pain: Comments: R/O DVT. RIGHT LEG: Venous imaging reveals acute, near-occlusive thrombus in the distal superficial femoral vein. Imaging also reveals patency of the common femoral, popliteal and calf veins. The greater saphenous vein is also within normal limits. Doppler indicates normal spontaneous flow within these segments. LEFT LEG: Venous imaging reveals a patent deep venous system. There is no evidence of thrombus within the femoral, popliteal or tibial segments. The greater saphenous vein is also within normal limits. Doppler indicates normal spontaneous flow within these segments. SONYA Concepcion was informed of abnormal results at 13:50 hrs.
[2017-03-08] VITALS: BP 150/90
[2017-03-08] MEDS: Acetaminophen 650mg/20.3ml GT PRN (03:23)
[2017-03-08 04:00] VITALS: BP 159/96
[2017-03-08] MEDS: NovoLOG Insulin Flexpen SUBQ SCH ×4 (05:42→23:46)
[2017-03-08 07:11] LABS: APPEARANCE,URINE SLIGHTLY CLOUDY; BILIRUBIN, URINE NEGATIVE (NEGATIVE); GLUCOSE, URINE (UA) NEGATIVE (NEGATIVE); KETONES,URINE NEGATIVE (NEGATIVE); LEUKOCYTE ESTERASE ,URINE 2+ (NEGATIVE); NITRITE,URINE NEGATIVE (NEGATIVE); PH,URINE 5 (4.5-8.0); PROTEIN,URINE NEGATIVE (NEGATIVE); UROBILINOGEN,URINE NORMAL MG/DL (0.0-1.0)
[2017-03-08 08:00] VITALS: BP 169/99
[2017-03-08 08:03] LABS: COLOR,URINE YELLOW
[2017-03-08] MEDS: metFORMIN 500mg tab GT SCH ×2 (08:39→17:50)
[2017-03-08] MEDS: Fluconazole 100mg tab ORAL SCH (08:39)
[2017-03-08] MEDS: Enoxaparin 60mg Inj SUBQ SCH ×2 (08:43→20:14)
--- NOTE | 2017-03-08 10:22 | GI Progress Note ---
Assessment/Plan Problems: (1) Dehydration ICD Codes: E86.0 - Dehydration SNOMED: 06078323 (2) Severe sepsis ICD Codes: A41.9 - Sepsis, unspecified organism; R65.20 - Severe sepsis without septic shock SNOMED: 26296862 (3) Dysphagia ICD Codes: R13.10 - Dysphagia, unspecified SNOMED: 35556967, 101350270 Status: stable Status Narrative Discussed with Dr. Howard. Assessment/Plan SUMMARY OF FINDINGS: Status post successful PEG placement. RECOMMENDATIONS: okay for DC per GI standpoint 1. Abdominal binder. 2. Elevate the head of the bed at all times. 3. G-tube flush. 4. G-tube care. 5. GTFs per RD fu labs Subjective Subjective limited Objective Last 24 Hour Vital Signs Date Time Temp Pulse Resp B/P (MAP) Pulse Ox O2 Delivery O2 Flow Rate FiO2 03/08/17 08:40 89 169/99 03/08/17 08:00 97.2 89 18 169/99 03/08/17 04:00 97.7 96 20 159/96 96 03/08/17 03:53 99.2 03/08/17 00:00 99.2 107 18 150/90 97 03/07/17 20:00 98.8 55 19 147/97 100 03/07/17 15:54 97.9 89 20 147/81 97 03/07/17 13:40 88 169/92 03/07/17 11:49 98.2 88 21 169/92 96 03/07/17 11:49 96 Room Air Intake and Output 03/07/17 03/08/17 19:00 07:00 Intake Total 1120 ml 1310 ml Output Total 1750 ml Balance 1120 ml -440 ml Intake Oral 0 ml Free Water 400 ml 650 ml Tube Feeding 720 ml 660 ml Output Urine Total 1750 ml # Voids 6 1 # Bowel Movements 5 3 Laboratory Tests Test 03/08/17 05:50 Urine Color Yellow Urine Appearance Slightly cloudy Urine pH 5 (4.5-8.0) Urine Specific [place] 1.015 (1.005-1.035) Urine Protein Negative (NEGATIVE) Urine Glucose (UA) Negative (NEGATIVE) Urine Ketones Negative (NEGATIVE) Urine Occult Blood 3+ (NEGATIVE) H Urine Nitrite Negative (NEGATIVE) Urine Bilirubin Negative (NEGATIVE) Urine Urobilinogen Normal MG/DL (0.0-1.0) Urine Leukocyte Esterase 2+ (NEGATIVE) H Urine RBC 10-15 /HPF (0 - 2) H Urine WBC 5-10 /HPF (0 - 2) H Urine Squamous Epithelial Cells Moderate /LPF (NONE/OCC) H Urine Bacteria Few /HPF (NONE) Urine Yeast Many /HPF (NONE) H Height (Feet): 5 Height (Inches): 5.00 Weight (Pounds): 120 General Appearance: WD/WN, no apparent distress, alert Cardiovascular: normal rate Respiratory/Chest: normal breath sounds, no respiratory distress Abdominal Exam: normal bowel sounds, non tender, soft, GT site - c/d/i Vee Stock N.P. Mar 08, 2017 10:22
[2017-03-08 12:00] VITALS: BP 158/93
[2017-03-08 16:00] VITALS: BP 129/60
[2017-03-08 20:00] VITALS: BP 168/97
--- NOTE | 2017-03-08 20:52 | General Progress Note ---
Assessment/Plan Problem List: (1) Severe sepsis ICD Codes: A41.9 - Sepsis, unspecified organism; R65.20 - Severe sepsis without septic shock SNOMED: 21376970 (2) Dehydration ICD Codes: E86.0 - Dehydration SNOMED: 02962162 (3) Hydronephrosis ICD Codes: N13.30 - Unspecified hydronephrosis SNOMED: 98766282 (4) Uremia ICD Codes: N19 - Unspecified kidney failure SNOMED: 64644889 (5) Acute kidney injury ICD Codes: N17.9 - Acute kidney failure, unspecified SNOMED: 29445046 (6) Mass of right ovary ICD Codes: N83.9 - Noninflammatory disorder of ovary, fallopian tube and broad ligament, unspecified SNOMED: 198933446 (7) Altered mental status ICD Codes: R41.82 - Altered mental status, unspecified SNOMED: 152227370 (8) Hypernatremia ICD Codes: E87.0 - Hyperosmolality and hypernatremia SNOMED: 13216878 (9) Thrombocytopenia ICD Codes: D69.6 - Thrombocytopenia, unspecified SNOMED: 647093878 (10) Aspiration pneumonia ICD Codes: J69.0 - Pneumonitis due to inhalation of food and vomit SNOMED: 625859765 Assessment/Plan remains confused, gt feed, dc antibiotics oral agents for dm, dc rod, given flagyl for diarrrhea to stop as c diff, neg, diflucan for yeasturia, discharge dictated 03/05 and I saw her 03/05 but dc delayed per facility, amlodipine for bp Subjective ROS Limited/Unobtainable: Yes Allergies: Coded Allergies: UNABLE TO ASSESS (Unverified , 02/05/17) Subjective confused pulled out ng Objective Last 24 Hour Vital Signs Date Time Temp Pulse Resp B/P (MAP) Pulse Ox O2 Delivery O2 Flow Rate FiO2 03/08/17 20:00 98.4 98 19 168/97 93 03/08/17 16:00 98.8 79 18 129/60 95 03/08/17 16:00 Room Air 03/08/17 12:00 98.0 97 18 158/93 95 03/08/17 12:00 Room Air 03/08/17 08:40 89 169/99 03/08/17 08:00 97.2 89 18 169/99 03/08/17 08:00 Room Air 03/08/17 04:00 97.7 96 20 159/96 96 03/08/17 03:53 99.2 03/08/17 00:00 99.2 107 18 150/90 97 Intake and Output 03/07/17 03/08/17 19:00 07:00 Intake Total 1120 ml 1310 ml Output Total 1750 ml Balance 1120 ml -440 ml Intake Oral 0 ml Free Water 400 ml 650 ml Tube Feeding 720 ml 660 ml Output Urine Total 1750 ml # Voids 6 1 # Bowel Movements 5 3 Laboratory Tests 03/08/17 05:50: Urine Color Yellow, Urine Appearance Slightly cloudy, Urine pH 5, Urine Specific [place] 1.015, Urine Protein Negative, Urine Glucose (UA) Negative, Urine Ketones Negative, Urine Occult Blood 3+H, Urine Nitrite Negative, Urine Bilirubin Negative, Urine Urobilinogen Normal, Urine Leukocyte Esterase 2+H, Urine RBC 10-15H, Urine WBC 5-10H, Urine Squamous Epithelial Cells ModerateH, Urine Bacteria Few, Urine Yeast ManyH Height (Feet): 5 Height (Inches): 5.00 Weight (Pounds): 120 General Appearance: no apparent distress, alert, confused EENT: normal ENT inspection Neck: normal alignment Cardiovascular: normal rate Respiratory/Chest: lungs clear, normal breath sounds Abdomen: non tender, soft, no organomegaly Edema: no edema noted Arm (L), no edema noted Arm (R), no edema noted Leg (L), no edema noted Leg (R), no edema noted Pedal (L), no edema noted Pedal (R), no edema noted Generalized Neurologic: disoriented BENOIT GIORDANO Mar 08, 2017 20:51
[2017-03-09] VITALS: BP 159/95
[2017-03-09] MEDS ORDERED: metroNIDAZOLE 500mg tab ORAL SCH
[2017-03-09] MEDS ORDERED: Enoxaparin 60mg Inj SUBQ SCH
[2017-03-09] MEDS ORDERED: Loperamide 2mg cap ORAL SCH
[2017-03-09] MEDS ORDERED: NovoLOG Insulin Flexpen SUBQ SCH
[2017-03-09 04:00] VITALS: BP 146/94
[2017-03-09] MEDS: NovoLOG Insulin Flexpen SUBQ SCH ×2 (05:52→12:34)
[2017-03-09] MEDS: Acetaminophen 650mg/20.3ml GT PRN (05:53)
[2017-03-09 07:30] LABS: EOSINOPHILS % (AUTO) 2.6 % (0.0-3.0); HEMATOCRIT 33.6 % (37.0-47.0); HEMOGLOBIN 11.2 G/DL (12.0-16.0); LYMPHOCYTES % (AUTO) 25.1 % (20.0-45.0); MEAN CORPUSCULAR VOLUME 96 FL (80-99); MONOCYTES % (AUTO) 6.4 % (1.0-10.0); PLATELET COUNT 382 K/UL (150-450); RED BLOOD COUNT 3.51 M/UL (4.20-5.40); RED CELL DISTRIBUTION WIDTH 12.7 % (11.6-14.8); WHITE BLOOD COUNT 10.6 K/UL (4.8-10.8)
[2017-03-09 07:46] LABS: ANION GAP 10 mmol/L (5-15); BLOOD UREA NITROGEN 12 mg/dL (7-18); CALCIUM 9.2 MG/DL (8.5-10.1); CARBON DIOXIDE 27 MMOL/L (21-32); CHLORIDE 107 MMOL/L (98-107); CREATININE 0.6 MG/DL (0.55-1.30); POTASSIUM 3.8 MMOL/L (3.5-5.1); SODIUM 144 MMOL/L (136-145)
[2017-03-09 08:00] VITALS: BP 160/95
[2017-03-09] MEDS: Fluconazole 100mg tab ORAL SCH (09:24)
[2017-03-09] MEDS: Enoxaparin 60mg Inj SUBQ SCH (09:27)
[2017-03-09] MEDS: metFORMIN 500mg tab GT SCH (09:44)
--- NOTE | 2017-03-09 10:31 | GI Progress Note ---
Assessment/Plan Problems: (1) Dehydration ICD Codes: E86.0 - Dehydration SNOMED: 37615669 (2) Severe sepsis ICD Codes: A41.9 - Sepsis, unspecified organism; R65.20 - Severe sepsis without septic shock SNOMED: 06615552 (3) Dysphagia ICD Codes: R13.10 - Dysphagia, unspecified SNOMED: 70081736, 349014083 Status: stable, unchanged Status Narrative Discussed with Dr. Howard. Assessment/Plan SUMMARY OF FINDINGS: Status post successful PEG placement. RECOMMENDATIONS: okay for DC per GI standpoint 1. Abdominal binder. 2. Elevate the head of the bed at all times. 3. G-tube flush. 4. G-tube care. 5. GTFs per RD fu labs Subjective Subjective limited Objective Last 24 Hour Vital Signs Date Time Temp Pulse Resp B/P (MAP) Pulse Ox O2 Delivery O2 Flow Rate FiO2 03/09/17 09:25 87 160/95 03/09/17 08:00 97.3 87 21 160/95 95 03/09/17 06:34 98.1 03/09/17 04:00 98.1 100 20 146/94 96 Room Air 03/09/17 00:00 98.2 92 19 159/95 95 03/08/17 20:00 98.4 98 19 168/97 93 03/08/17 16:00 98.8 79 18 129/60 95 03/08/17 16:00 Room Air 03/08/17 12:00 98.0 97 18 158/93 95 03/08/17 12:00 Room Air Intake and Output 03/08/17 03/09/17 19:00 07:00 Intake Total 60 ml 1320 ml Output Total 600 ml 450 ml Balance -540 ml 870 ml Free Water 600 ml Tube Feeding 60 ml 720 ml Output Urine Total 600 ml 450 ml # Voids 1 # Bowel Movements 2 2 Laboratory Tests Test 03/09/17 06:05 White Blood Count 10.6 K/UL (4.8-10.8) Red Blood Count 3.51 M/UL (4.20-5.40) L Hemoglobin 11.2 G/DL (12.0-16.0) L Hematocrit 33.6 % (37.0-47.0) L Mean Corpuscular Volume 96 FL (80-99) Mean Corpuscular Hemoglobin 31.9 PG (27.0-31.0) H Mean Corpuscular Hemoglobin Concent 33.4 G/DL (32.0-36.0) Red Cell Distribution Width 12.7 % (11.6-14.8) Platelet Count 382 K/UL (150-450) Mean Platelet Volume 7.7 FL (6.5-10.1) Neutrophils (%) (Auto) 65.0 % (45.0-75.0) Lymphocytes (%) (Auto) 25.1 % (20.0-45.0) Monocytes (%) (Auto) 6.4 % (1.0-10.0) Eosinophils (%) (Auto) 2.6 % (0.0-3.0) Basophils (%) (Auto) 1.0 % (0.0-2.0) Sodium Level 144 MMOL/L (136-145) Potassium Level 3.8 MMOL/L (3.5-5.1) Chloride Level 107 MMOL/L (98-107) Carbon Dioxide Level 27 MMOL/L (21-32) Anion Gap 10 mmol/L (5-15) Blood Urea Nitrogen 12 mg/dL (7-18) Creatinine 0.6 MG/DL (0.55-1.30) Estimat Glomerular Filtration Rate > 60 mL/min (>60) Glucose Level 124 MG/DL (74-106) H Calcium Level 9.2 MG/DL (8.5-10.1) Height (Feet): 5 Height (Inches): 5.00 Weight (Pounds): 123 General Appearance: confused Abdominal Exam: GT site - c/d/i Vee Stock N.P. Mar 09, 2017 10:31
[2017-03-09 11:43] VITALS: BP 147/64
--- NOTE | 2017-03-09 12:48 | General Progress Note ---
Assessment/Plan Problem List: (1) Severe sepsis ICD Codes: A41.9 - Sepsis, unspecified organism; R65.20 - Severe sepsis without septic shock SNOMED: 01455019 (2) Dehydration ICD Codes: E86.0 - Dehydration SNOMED: 35190897 (3) Hydronephrosis ICD Codes: N13.30 - Unspecified hydronephrosis SNOMED: 42253824 (4) Uremia ICD Codes: N19 - Unspecified kidney failure SNOMED: 80774087 (5) Acute kidney injury ICD Codes: N17.9 - Acute kidney failure, unspecified SNOMED: 27843540 (6) Mass of right ovary ICD Codes: N83.9 - Noninflammatory disorder of ovary, fallopian tube and broad ligament, unspecified SNOMED: 417544378 (7) Altered mental status ICD Codes: R41.82 - Altered mental status, unspecified SNOMED: 537123775 (8) Hypernatremia ICD Codes: E87.0 - Hyperosmolality and hypernatremia SNOMED: 80012577 (9) Thrombocytopenia ICD Codes: D69.6 - Thrombocytopenia, unspecified SNOMED: 897911136 (10) Aspiration pneumonia ICD Codes: J69.0 - Pneumonitis due to inhalation of food and vomit SNOMED: 506805161 Assessment/Plan remains confused, gt feed, dc antibiotics oral agents for dm, dc rod, given flagyl for diarrrhea to stop as c diff, neg, diflucan for yeasturia, discharge dictated 03/05 and I saw her 03/05 but dc delayed per facility, amlodipine for bp Subjective ROS Limited/Unobtainable: Yes Allergies: Coded Allergies: UNABLE TO ASSESS (Unverified , 02/05/17) Subjective confused pulled out ng Objective Last 24 Hour Vital Signs Date Time Temp Pulse Resp B/P (MAP) Pulse Ox O2 Delivery O2 Flow Rate FiO2 03/09/17 11:43 97.2 91 20 147/64 98 03/09/17 09:25 87 160/95 03/09/17 08:00 97.3 87 21 160/95 95 03/09/17 06:34 98.1 03/09/17 04:00 98.1 100 20 146/94 96 Room Air 03/09/17 00:00 98.2 92 19 159/95 95 03/08/17 20:00 98.4 98 19 168/97 93 03/08/17 16:00 98.8 79 18 129/60 95 03/08/17 16:00 Room Air Intake and Output 03/08/17 03/09/17 19:00 07:00 Intake Total 60 ml 1320 ml Output Total 600 ml 450 ml Balance -540 ml 870 ml Free Water 600 ml Tube Feeding 60 ml 720 ml Output Urine Total 600 ml 450 ml # Voids 1 # Bowel Movements 2 2 Laboratory Tests 03/09/17 06:05: White Blood Count 10.6, Red Blood Count 3.51L, Hemoglobin 11.2L, Hematocrit 33.6L, Mean Corpuscular Volume 96, Mean Corpuscular Hemoglobin 31.9H, Mean Corpuscular Hemoglobin Concent 33.4, Red Cell Distribution Width 12.7, Platelet Count 382, Mean Platelet Volume 7.7, Neutrophils (%) (Auto) 65.0, Lymphocytes (% ) (Auto) 25.1, Monocytes (%) (Auto) 6.4, Eosinophils (%) (Auto) 2.6, Basophils ( %) (Auto) 1.0, Sodium Level 144, Potassium Level 3.8, Chloride Level 107, Carbon Dioxide Level 27, Anion Gap 10, Blood Urea Nitrogen 12, Creatinine 0.6, Estimat Glomerular Filtration Rate > 60, Glucose Level 124H, Calcium Level 9.2 Height (Feet): 5 Height (Inches): 5.00 Weight (Pounds): 123 General Appearance: no apparent distress, alert, confused EENT: normal ENT inspection Neck: normal alignment Cardiovascular: normal rate Respiratory/Chest: lungs clear Abdomen: non tender Edema: no edema noted Arm (L), no edema noted Arm (R), no edema noted Leg (L), no edema noted Leg (R), no edema noted Pedal (L), no edema noted Pedal (R), no edema noted Generalized Neurologic: disoriented Skin: other - sacral redness BENOIT GIORDANO Mar 09, 2017 12:48
[2017-03-09 15:47] VITALS: BP 148/92
--- NOTE | 2017-03-11 10:02 | Discharge Summary ---
Discharge Summary Hospital Course Date of Admission Feb 05, 2017 at 09:15 Date of Discharge Mar 09, 2017 at 15:50 Admitting Diagnosis JADE Adame is a 56 year old female who was admitted on Feb 05, 2017 at 09:15 for Altered Mental Status Hospital Course Addendum: Patient was discharged 03/05/17 to board and care but unable to discharge until arrangements for tube feeding supplies in place. Urine culture was positive for yeast, Diflucan was given. C. diff negative. Amlodipine given for better BP control. Patient was discharged 03/10/17. --I was assigned to complete a DC summary on this account, I was not involved with the patient's management.-Michelle Ray NP-- Discharge Discharge Disposition Patient was discharged to [facility] () Discharge Diagnoses: Isabel Ray NP Mar 11, 2017 10:02
--- NOTE | 2017-03-16 11:42 | Diagnostic Imaging Report ---
APPROVED REPORT CPT Code: 78992 Present Symptoms Comments: PAIN BILATERAL: Imaging reveals a patent deep venous system bilaterally. There is no evidence of thrombus within the femoral, popliteal or tibial segments. The greater saphenous veins are also within normal limits. Doppler indicates normal spontaneous flow within these segments.
== END 2017-03-09 15:50 | DRG 720 ==
LOC: EDBD 08:12 → EMR 09:12 → EDBD 09:15 → ICU 09:15 → EDBEDREQ 09:58 → 2W 22:43 → ICU 02-06 07:07 → 2W 02-06 07:51 → 4E 02-11 09:25
PROC: 0DH63UZ Insertion of Feeding Device into Stomach, Percutaneous Approach (ICD-10-PCS; principal; 2017-02-19 14:40)
DX: A41.81 Sepsis due to Enterococcus (principal); R65.21 Severe sepsis with septic shock; J69.0 Pneumonitis due to inhalation of food and vomit; N17.9 Acute kidney failure, unspecified; L89.110 Pressure ulcer of right upper back, unstageable; E87.0 Hyperosmolality and hypernatremia; D69.6 Thrombocytopenia, unspecified; E11.65 Type 2 diabetes mellitus with hyperglycemia; F03.90 Unspecified dementia, unspecified severity, without behavioral disturbance, psychotic disturbance, mood disturbance, and anxiety; L89.120 Pressure ulcer of left upper back, unstageable; L89.621 Pressure ulcer of left heel, stage 1; R68.0 Hypothermia, not associated with low environmental temperature; N13.39 Other hydronephrosis; D39.11 Neoplasm of uncertain behavior of right ovary; K80.20 Calculus of gallbladder without cholecystitis without obstruction; K44.9 Diaphragmatic hernia without obstruction or gangrene; D25.9 Leiomyoma of uterus, unspecified; M70.62 Trochanteric bursitis, left hip; M70.61 Trochanteric bursitis, right hip; R09.02 Hypoxemia; K21.9 Gastro-esophageal reflux disease without esophagitis; I50.9 Heart failure, unspecified; R13.10 Dysphagia, unspecified; E86.0 Dehydration; L89.130 Pressure ulcer of right lower back, unstageable; L89.611 Pressure ulcer of right heel, stage 1; L89.321 Pressure ulcer of left buttock, stage 1; L89.210 Pressure ulcer of right hip, unstageable
CPT/HCPCS: 36415; 36600; 70450; 71010; 71045; 74000; 74018; 74176; 74230; 80048; 80053; 80202; 80307; 80329; 81001; 81003; 82140; 82550; 82553; 82570; 82803; 82962; 83605; 83735; 83880; 83935; 84100; 84300; 84443; 84484; 85007; 85025; 85610; 85730; 86304; 86710; 87040; 87070; 87081; 87086; 87181; 87205; 87324; 93306; 93970; 94003; 94150; 94640; 94664; 94760; 99291; J1815; J7620; J8499; S5561